=== PATIENT | male | born 1945 | race Caucasian/White ===

== ENCOUNTER 2017-01-10 11:36 | Inpatient (IN) | payer OTHER ==
[2017-01-10] MEDS ORDERED: NITROGLYCERIN SL PRN (11:46)
[2017-01-10] MEDS ORDERED: ASPIRIN PO STA (11:46)
[2017-01-10 12:06] LABS: MANUAL DIFF NEEDED? NO
[2017-01-10 12:22] LABS: BASO% 0.2 % (0.0-0.8); EOS# 0.15 X1000 (0.0-0.7); EOS% 2.3 % (0.0-10.0); HEMATOCRIT 33.9 % (42.0-52.0); HEMOGLOBIN 10.8 g/dL (14.0-18.0); IMM GRAN# 0.02 X1000 (0.0-0.04); IMM GRAN% 0.3 % (0.0-0.5); LYMPH# 0.66 X1000 (1.2-3.4); LYMPH% 10.3 % (20.5-51.1); MCH 31.1 PG (27-31); MCHC 31.9 g/dL (33-37); MCV 97.7 FL (81-99); MONO# 0.89 X1000 (0.11-0.59); MONO% 13.9 % (1.7-9.3); MPV 10.2 FL (7.4-10.4); PLT 122 X1000 (130-400); RBC 3.47 XMIL (4.7-6.1)
[2017-01-10 12:24] LABS: INR 0.99; PROTIME 10.5 Seconds (9.2-11.7); PTT 25.9 Seconds (22.0-36.0)
[2017-01-10 12:37] LABS: ALBUMIN 3.7 g/dL (3.5-5.0); CALCIUM 8.3 mg/dL (8.8-10.2); MAGNESIUM 1.5 mg/dL (1.5-2.7); POTASSIUM 3.3 mmol/L (3.5-5.1); TOTAL BILIRUBIN 0.37 mg/dL (0.20-1.00); TOTAL PROTEIN 6.2 g/dL (6.3-8.3)
--- NOTE | 2017-01-10 12:53 | PROVIDER DOCUMENTATION ---
HPI-Cardiac General <Chance Jaquez - Last Filed: 01/10/17 13:46> - General Source: patient - History of Present Illness-Cardiac Location: reports: other (left side) Quality of Pain: reports: dull Severity in ED: mild Onset/Duration: abrupt, this morning (1030) Timing: still present, improving Context/Activities at Onset: reports: none Modifying Factors: improves with: nothing Palpitation Quality: irregular History of arrythmia: reports: A-Fib Recent use of:: reports: no stimulants Aspirin Treatment Today: reports: 325 mg x 1, provided by ED Prior Chest Pain/Cardiac Workup: reports: cardiac cath (last year at [facility]) Associated Symptoms: denies: back pain, diaphoresis, nausea, shortness of breath , vomiting Similar Symptoms Previously?: Yes Recently Seen Here or By Another Healthcare Provider: No <Zain Gilmore - Last Filed: 01/10/17 13:57> - General Chief Complaint: Palpitations Stated Complaint: PALPITATIONS/NAUSEA Time Seen by Provider: 01/10/17 12:04 Allergies/Adverse Reactions: Patient Allergies Allergy/AdvReac Type Severity Reaction Status Date / Time ciprofloxacin [From Cipro] Allergy SWELLING Verified 01/10/17 13:16 Home Medications: Home Medication List Medication Instructions Recorded Confirmed Last Taken Type Cyanocobalamin/Folic Acid [Vitamin 1 each PO DAILY 05/30/15 09/16/16 09/15/16 History R69-[id number] Acid Tablet] Gabapentin [Neurontin] 100 mg PO QHS 05/30/15 09/16/16 09/15/16 History Pantoprazole [Protonix] 40 mg PO DAILY@0700 05/30/15 09/16/16 09/16/16 History Potassium Chloride 20 meq PO BID 05/30/15 09/16/16 09/15/16 History Prednisone 5 mg PO DAILY 05/30/15 09/16/16 09/16/16 History Sevelamer Carbonate [Renvela] 800 mg PO BID 05/30/15 09/16/16 09/15/16 History Sodium Bicarbonate 1,300 mg PO DAILY 05/30/15 09/16/16 09/15/16 History Tamsulosin HCl [Flomax] 0.4 mg PO QHS 05/30/15 09/16/16 09/15/16 History Cinacalcet HCl [Sensipar] 60 mg PO HS 09/14/16 09/16/16 09/15/16 History Acetaminophen [Tylenol] 650 mg PO Q6H PRN PRN #0 tablet 09/20/16 Unknown Rx Aspirin EC 81 mg PO DAILY #0 tablet 09/20/16 Unknown Rx Carvedilol [Coreg] 12.5 mg PO Q12H #60 tablet 09/20/16 Unknown Rx Clonidine [Catapres] 0.1 mg PO BID #60 tablet 09/20/16 Unknown Rx Hydralazine [Apresoline] 25 mg PO TID #90 tablet 09/20/16 Unknown Rx Isosorbide Dinitrate [Isordil] 10 mg PO TID #90 tablet 09/20/16 Unknown Rx - History of Present Illness-Cardiac Nature of Presenting Problem: patient is a 71 y/o M that presents to the ER with left sided chest pain and palpitations. patient noticed symptoms about 1030 this am after having dialysis. He has history of a-fib in the past. patient was on cardizem in past but was taken off and changed to medications to strengthen heart. he denies having shortness of breath, back pain, or n/v. Dialysis went as normal today ( Zain Gilmore) Review of Systems - Adult - REVIEW OF SYSTEMS - ADULT Constitutional: denies: chills, fever Eyes: denies: decreased vision, blurred vision, double vision Ears, Nose, Mouth & Throat: denies: ear pain, sinus problem, throat pain, throat swelling Cardiovascular: reports: chest pain, palpitations. denies: syncope Respiratory: denies: cough, shortness of breath, wheezing Gastrointestinal: reports: no symptoms reported Genitourinary: reports: no symptoms reported Musculoskeletal: denies: back pain, joint pain, neck pain Integumentary: reports: no symptoms reported Neurological: denies: dizziness/vertigo, headache/migraines Psychiatric: reports: no symptoms reported Endocrine: reports: no symptoms reported Hematologic/Lymphatic: reports: no symptoms reported Allergic/Immunologic: reports: no symptoms reported All Other Systems: Reviewed and Negative <Zain Gilmore - Last Filed: 01/10/17 13:57> Past History - Adult - PAST MEDICAL HISTORY-ADULT Review of Records: reports: Old Records Reviewed, Nursing Assessment Review, Medications Reviewed Cardiovascular: reports: A-Fib, HTN, PVD Genitourinary: reports: dialysis (MWF), ESRD, other - PRIOR SURGERIES/PROCEDURES Surgical/Procedure History: reports: indwelling device (Av fistula) - IMMUNIZATION STATUS Childhood Immunizations: See Nurse Assessment Flu Vaccine: See Nurse Assessment - FAMILY HISTORY Family History: reviewed, not pertinent - SOCIAL HISTORY Smoking: quit greater than 1 year, cigarettes Living Situation: family <Zain Gilmore - Last Filed: 01/10/17 13:57> Physical Exam-General - PHYSICAL EXAM-ADULT Initial Vital Signs Reviewed: Yes - CONSTITUTIONAL General Appearance: alert, no apparent distress - EYES Eyes: PERRL/EOMI, pink conjunctivae - HEAD, EARS, NOSE, MOUTH & THROAT HENMT: normocephalic/atraumatic, moist mucous membranes, normal ENT inspection - NECK Neck: full range of motion, normal inspection - RESPIRATORY Respiratory: lungs clear, normal breath sounds, no respiratory distress, no accessory muscle use - CARDIOVASCULAR Cardiovascular: no JVD, irregularly irregular - GASTROINTESTINAL (ABDOMEN) Abdominal Exam: normal bowel sounds, non tender, soft - MUSCULOSKELETAL Extremity: no pedal edema, no calf tenderness, normal capillary refill, pelvis stable, other (av fistula to left arm( good thrill)) - SKIN Integumentary: normal color, warm/dry - NEUROLOGIC Neurologic: grossly normal, no motor/sensory deficits - PSYCHIATRIC Psych/Mental Status: normal mood/affect, normal thought content, normal thought process, oriented x 3 <Zain Gilmore - Last Filed: 01/10/17 13:57> Progress <Chance Jaquez - Last Filed: 01/10/17 13:46> - XRAY 1 XRAY Study: Chest Impression: Abnormal XRAY Interpretation: Increasing Pleural Effusions - CONSULTS/PCP/HOSPITALIST Notification #1 *Consult/PCP/Hospitalist*: Time Discussed: 13:50 Consult Disposition: Will see in ED, Admit <Zain Gilmore - Last Filed: 01/10/17 13:57> - PLAN OF CARE/RESULTS Progress/Plan/Lab Results: 1345 Pt has remained in no distress but continues in afib with rvr. Case discussed with Dr Ashford who agreed with admission to telemetry. (Chance Jaquez) plan of care- labs, cxr, ekg Vital Signs Temp Pulse Resp BP Pulse Ox 01/10/17 12:40 124 H 15 99/78 96 01/10/17 11:44 98.6 F 81 18 116/64 98 ciprofloxacin [From Cipro] Allergy (Verified 01/10/17 13:16) SWELLING Cyanocobalamin/Folic Acid [Vitamin S15-Wotav Acid Tablet] 1 each PO DAILY Gabapentin [Neurontin] 100 mg PO QHS 05/30/15 Pantoprazole [Protonix] 40 mg PO DAILY@0700 05/30/15 Potassium Chloride 20 meq PO BID 05/30/15 Prednisone 5 mg PO DAILY 05/30/15 Sevelamer Carbonate [Renvela] 800 mg PO BID 05/30/15 Sodium Bicarbonate 1,300 mg PO DAILY 05/30/15 Tamsulosin HCl [Flomax] 0.4 mg PO QHS 05/30/15 Cinacalcet HCl [Sensipar] 60 mg PO HS 09/14/16 Acetaminophen [Tylenol] 650 mg PO Q6H PRN PRN #0 tablet 09/20/16 Aspirin EC 81 mg PO DAILY #0 tablet 09/20/16 Carvedilol [Coreg] 12.5 mg PO Q12H #60 tablet 09/20/16 Clonidine [Catapres] 0.1 mg PO BID #60 tablet 09/20/16 Hydralazine [Apresoline] 25 mg PO TID #90 tablet 09/20/16 Isosorbide Dinitrate [Isordil] 10 mg PO TID #90 tablet 09/20/16 Laboratory 01/10/17 01/10/17 01/10/17 11:53 11:53 11:53 WBC RBC Hgb Hct MCV MCH MCHC RDW Std Deviation Plt Count MPV Immature Gran % (Auto) Neut % (Auto) Lymph % (Auto) Lanier % (Auto) Eos % (Auto) Baso % (Auto) Immature Gran # (Auto) Neut # (Auto) Lymph # (Auto) Lanier # (Auto) Eos # (Auto) Baso # (Auto) PT 10.5 INR 0.99 PTT (Actin FS) 25.9 D-Dimer Sodium Potassium Chloride Carbon Dioxide Anion Gap BUN Creatinine Estimated GFR/1.73 m2 BUN/Creatinine Ratio Glucose Calculated Osmolality Calcium Magnesium Total Bilirubin AST ALT Alkaline Phosphatase Creatine Kinase Troponin T 0.195 H Hbp-D-Wcyrrncektv Pept > 11332 H Total Protein Albumin Globulin Albumin/Globulin Ratio 01/10/17 01/10/17 01/10/17 11:53 11:53 11:53 WBC 6.41 RBC 3.47 L Hgb 10.8 L Hct 33.9 L MCV 97.7 MCH 31.1 H MCHC 31.9 L RDW Std Deviation 15.1 H Plt Count 122 L MPV 10.2 Immature Gran % (Auto) 0.3 Neut % (Auto) 73.0 Lymph % (Auto) 10.3 L Lanier % (Auto) 13.9 H Eos % (Auto) 2.3 Baso % (Auto) 0.2 Immature Gran # (Auto) 0.02 Neut # (Auto) 4.68 Lymph # (Auto) 0.66 L Lanier # (Auto) 0.89 H Eos # (Auto) 0.15 Baso # (Auto) 0.01 PT INR PTT (Actin FS) D-Dimer 2.70 H Sodium 139 Potassium 3.3 L Chloride 95 L Carbon Dioxide 26 Anion Gap 18 BUN 28 H Creatinine 5.3 H Estimated GFR/1.73 m2 11 BUN/Creatinine Ratio 5 Glucose 118 H Calculated Osmolality 284 Calcium 8.3 L Magnesium 1.5 Total Bilirubin 0.37 AST 20 ALT 19 Alkaline Phosphatase 79 Creatine Kinase 44 Troponin T Sms-B-Bfjfsssgyix Pept Total Protein 6.2 L Albumin 3.7 Globulin 2.5 Albumin/Globulin Ratio 1.5 Orders Category Date Time Status Cardiac Monitoring DIRECTED Care 01/10/17 11:46 Active Saline Loc NOW Care 01/10/17 11:46 Active CHEST-2 VIEWS [RAD] Stat Exams 01/10/17 11:46 Completed CBC WITH ELECTRONIC DIFF [HEME] Stat Lab 01/10/17 11:53 Completed CK PROFILE [SP CHEM] Stat Lab 01/10/17 11:53 Completed COMPREHENSIVE METABOLIC PANEL [CHEM] Stat Lab 01/10/17 11:53 Completed D-DIMER [CHEM] Stat Lab 01/10/17 11:53 Completed MAGNESIUM [CHEM] Stat Lab 01/10/17 11:53 Completed PRO B-NATRIURETIC PEPTIDE Stat Lab 01/10/17 11:53 Completed PROTIME WITH INR [COAG] Stat Lab 01/10/17 11:53 Completed PTT [COAG] Stat Lab 01/10/17 11:53 Completed TROPONIN T Stat Lab 01/10/17 11:53 Completed Aspirin Med 01/10/17 11:46 Discontinued 325 mg PO STAT STA Diltiazem [Cardizem] Med 01/10/17 13:35 Discontinued 10 mg IV NOW ONE Nitroglycerin Sl [Nitroglycerin] Med 01/10/17 11:46 Discontinued 0.4 mg SL Q5M PRN PRN EKG [EKG] Stat Ther 01/10/17 11:46 Ordered pt will be admitted to hospitalist service (Zain Gilmore) Departure - Departure Time of Disposition Order: 13:47 Certified Medical Emergency: Emergent <Chance Jaquez - Last Filed: 01/10/17 13:46> - Departure Time of Disposition Order: 13:57 Certified Medical Emergency: Emergent - Critical Care Note Total Time (mins): 35 Critical Care Statement: This patient required my direct personal management to treat or rule out processes, the absence of which, could potentiallly result in sudden, clinically significant life or limb threatening deterioration. <Zain Gilmore - Last Filed: 01/10/17 13:57> - Departure DIAGNOSIS: Atrial fibrillation with rapid ventricular response Chest pain Qualifiers: Chest pain type: unspecified Qualified Code(s): R07.9 - Chest pain, unspecified Chronic renal failure Qualifiers: Chronic kidney disease stage: stage 4 (severe) Qualified Code(s): N18.4 - Chronic kidney disease, stage 4 (severe) Disposition: ADMITTED INPATIENT 09 Condition: Stable Referrals: Steven Avila [Primary Care Provider] - Attestation - Scribe Verification/Attestation Scribe:: Zain Gilmore Acting as Scribe for:: Chance Jaquez Scribe documention review:: This chart was documented by a scribe and accurately reflects the service the provider performed and the decisions made by the provider. <Zain Gilmore - Last Filed: 01/10/17 13:57> Physician Attestation - Physician Attestation I, the provider, attest to the following statement:: Chance Jaquez Physician documentation Attestation:: This documentation recorded by the scribe accurately reflects the service I personally performed and the decisions made by me. <Zain Gilmore - Last Filed: 01/10/17 13:57>
--- NOTE | 2017-01-10 13:01 | Diag Imaging Result Document ---
PROCEDURE NAME: CHEST-2 VIEWS - 01/10/2017 TWO VIEWS OF THE CHEST: FINDINGS: There is a left pleural effusion. There is a smaller effusion on the right. Compared to 11/14/2016, the volume of fluid on the left may be slightly greater but the right pleural effusion was not present previously. Otherwise, there has been no appreciable change. IMPRESSION: Increasing pleural effusions.
[2017-01-10] MEDS ORDERED: CARDIZEM IV ONE (13:35)
[2017-01-10] MEDS: CARDIZEM 100 MG/NS 100 ML IV SCH (15:00)
--- NOTE | 2017-01-10 15:46 | HISTORY AND PHYSICAL ---
PRIMARY CARE PROVIDER: Steven Avila MD. CHIEF COMPLAINT: Palpitations, left chest pain with nausea. HISTORY OF PRESENT ILLNESS: Mr. Byrne is a 71-year-old male with a past medical history of end-stage renal disease receiving dialysis Sunday, Sunday, Sunday, persistent pleural effusions, parathyroid disease, who apparently had a history of atrial fibrillation in 2007 that required cardioversion, now presents with complaints of palpitation, nausea, and left chest pain. Apparently he received hemodialysis and after hemodialysis, around 10:30 he started feeling palpitations, he was nauseated, and had left chest pain that radiated to the left shoulder, but denies any shortness of breath or diaphoresis or any other complaints. He denies any other symptoms such as fever, chills, vomiting, diarrhea, or constipation. Denies any other pains or complaints. Upon arrival to the ER his EKG revealed that he was in atrial fibrillation with RVR. He has received hemodialysis and his potassium level is 3.3. Magnesium is 1.5. In looking at his cardiac enzymes, CK is normal. Troponin is elevated at 0.195 but looking at past records since September of 2016 he has had elevations in his troponin. Even prior to that, it looks like in May 2015 he had elevations in his troponin. No obvious ST elevations on EKG, just atrial fibrillation with RVR. Currently at the bedside, looking at the heart monitor he ranges anywhere from low 100s up to 130s. He did receive a 1 time dose of IV Cardizem 10 mg x1 in the ER. We will start him on a Cardizem drip, hold his blood pressure medications for now as he has a systolic in the 90s to low 100s, and consult cardiology, Dr. Garcia. He has seen Dr. Green in the past. PAST MEDICAL HISTORY: 1. Bronchitis. 2. Pneumonia. He said his last round of pneumonia was last year. 3. CKD, end-stage renal disease with hemodialysis Sunday, Sunday, Sunday. Followed by Dr. Garcia. 4. Chronic thrombocytopenia. 5. Paroxysmal atrial fibrillation with last being in 2007 that required cardioversion at [facility]. 6. Crohn disease. The last flare was in 1981. 7. Hypertension. 8. Kidney stones and gallstones. 9. Restless legs syndrome. 10. Peripheral vascular disease. 11. Right inguinal hernia. 12. Parathyroid disease. 13. Congestive heart failure with last echocardiogram being September 17, 2016 which showed an EF of 25 to 30% and global hypokinesis. 14. Advanced degree of diastolic heart dysfunction. 15. Pulmonary artery hypertension with the last recording of being 60 mmHg. PAST SURGICAL HISTORY: 1. Right femoral artery repair in 1967. 2. Right foot DVT several years ago. 3. Rectal sweat gland removed. 4. Left upper arm AV fistula. 5. Two colon resections secondary to Crohn. 6. Bilateral cataract surgery. 7. Skin cancer removed from left forearm and neck. 8. Cardioversion in 2007 at [facility]. SOCIAL HISTORY: Quit smoking 39 years ago. Denies alcohol or illicit drug use. He is and lives in [place] with his . 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 FAMILY HISTORY: His father is positive for colon cancer. Brother had diabetes and hypertension. ALLERGIES: All fluoroquinolones and adhesive tape. HOME MEDICATIONS: Sensipar 60 mg p.o. nightly, clonidine 0.1 mg p.o. twice a day, vitamin B12, folic acid tablet 1 tablet p.o. daily, Neurontin 100 mg p.o. nightly, potassium chloride 20 mEq p.o. twice daily, prednisone 5 mg p.o. daily, Protonix 40 mg p.o. daily, Renvela 800 mg p.o. twice daily, sodium bicarbonate 1300 mg p.o. daily, Flomax 0.4 mg p.o. nightly, Tylenol p.r.n., hydralazine 25 mg p.o. t.i.d., enteric-coated aspirin 81 mg p.o. daily, clonidine 0.1 mg p.o. twice daily, Coreg 12.5 mg p.o. every 12 hours, isosorbide dinitrate 10 mg p.o. t.i.d. REVIEW OF SYSTEMS: Fourteen point review of systems were complete and all were negative except for those mentioned in the above HPI. LABORATORY DATA: White blood cells 6,000, hemoglobin 10, hematocrit 33, platelet count 122,000. INR 0.99, PTT is 25.9. D-dimer 2.70. Sodium 139, potassium 3.3, BUN 28, creatinine 5.3, glucose 118, calcium 8.3, magnesium 1.5, total bilirubin 0.37, AST 20, ALT 19, CK 44. Troponin 0.195. ProBNP 35,000. Total protein 6.2. IMAGING: Chest x-ray: Bilateral pleural effusions that have increased in size since last image, left is greater than right. PHYSICAL EXAMINATION: VITAL SIGNS: Temperature is 98.6 degrees, heart rate 124, respiratory rate 15, blood pressure 99/78, O2 saturation 96% on room air, 6 feet 2 inches tall, 158 pounds. GENERAL: Mr. Byrne is a 71-year-old male. He is in no acute distress. He is able to answer all questions appropriately. HEENT: Atraumatic, normocephalic. Pupils equal, round, reactive to light. Extraocular movements intact. NECK: No JVD or carotid bruits. CARDIOVASCULAR: Irregularly irregular, tachycardic rate and rhythm. No rubs, gallops murmurs. PULMONARY: Clear to auscultation. Bilateral breath sounds. Decreased in the bases. No accessory muscle use or work of breathing noted. GI: Soft, nontender, nondistended. Positive bowel sounds x4. EXTREMITIES: There is +1 edema in the right lower extremity. Trace edema in the left lower extremity. There is a +2 dorsalis pedal pulse in the left lower extremity. Trace pedal pulse in the right lower extremity. Bilateral radials +2. NEUROLOGIC: A O x4. Moves all extremities equally. SKIN: Warm, dry, intact. ASSESSMENT AND PLAN: 1. Paroxysmal atrial fibrillation, now atrial fibrillation with rapid ventricular response. Last had a cardioversion in 2007 at [facility]. Magnesium is 1.5 potassium 3.3/ will attempt to keep electrolytes stable given his end-stage renal disease. Will consult cardiology and start him on a Cardizem drip and frequent vital signs. We will send to [facility]. 2. Congestive heart failure systolic with diastolic dysfunction and pulmonary artery hypertension. Last echocardiogram was in September of 2016. His ejection fraction is 25 to 30%, pulmonary pressure is 60 mmHg. He did receive dialysis today but is proBNP chronically stays elevated greater than 35,000. Again, cardiology will be following. Holding off on his Coreg and will allow Dr. Garcia make that decision as blood pressure is somewhat soft and upper 90s currently systolically. 3. End-stage renal disease. Received dialysis today. Gets dialysis Sunday, Sunday, Sunday. We will reconsult Dr. Garcia. 4. Chronic thrombocytopenia. 5. Crohn disease. Last flare was in 1981. 6. Hypertension. Hold medications for now. 7. Peripheral vascular disease. 8. Parathyroid disease. 9. Deep venous thrombosis prophylaxis. Heparin q.12 hours. 10. Gastrointestinal prophylaxis. Proton pump inhibitor. Dictated by MELVA Kay for Marcus Ashford MD Addendum: I personally evaluated and examined the patient in conjunction to the [employer] and agreed with her assessments and plans. He is having IRR on examined but no chest pain. MTDD
[2017-01-10] MEDS ORDERED: ZOFRAN IV PRN (16:38)
[2017-01-10] MEDS ORDERED: TYLENOL PO PRN (16:38)
[2017-01-10] MEDS ORDERED: MISC. PHARMACY COMMUNICATION SCH (16:45)
[2017-01-10] MEDS ORDERED: FLUZONE QUAD 2016-2017 SYRINGE IM ONE (17:03)
[2017-01-10] MEDS: LANOXIN IV SCH ×2 (17:36→22:55)
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
[2017-01-10] MEDS: HEPARIN SUBQ SCH (20:31)
[2017-01-10] MEDS: KLOR-CON PO SCH (20:31)
[2017-01-10] MEDS: NEURONTIN PO SCH (20:31)
[2017-01-10] MEDS: FLOMAX PO SCH (20:31)
[2017-01-10] MEDS: RENAGEL PO SCH (20:58)
[2017-01-10] MEDS: SENSIPAR PO SCH (20:58)
[2017-01-11 05:26] LABS: MANUAL DIFF NEEDED? NO
[2017-01-11 05:31] LABS: BASO% 0.2 % (0.0-0.8); EOS# 0.13 X1000 (0.0-0.7); EOS% 2.8 % (0.0-10.0); HEMATOCRIT 30.3 % (42.0-52.0); HEMOGLOBIN 9.7 g/dL (14.0-18.0); LYMPH# 0.66 X1000 (1.2-3.4); MCH 31.6 PG (27-31); MCV 98.7 FL (81-99); MONO# 0.67 X1000 (0.11-0.59); MONO% 14.2 % (1.7-9.3); NEUT% 68.8 % (42.2-75.2); PLT 89 X1000 (130-400); RBC 3.07 XMIL (4.7-6.1)
[2017-01-11 05:35] LABS: INR 1.03; PROTIME 10.9 Seconds (9.2-11.7); PTT 27.3 Seconds (22.0-36.0)
--- NOTE | 2017-01-11 05:51 | EKG Report ---
Test Performed on : 01/10/2017 11:47:38 AM Test Reason : Elevated Troponin Blood Pressure : / mmHG Vent. Rate : 130 BPM Atrial Rate : 129 BPM P-R Int : 000 ms QRS Dur : 114 ms QT Int : 292 ms P-R-T Axes : 000 -13 143 degrees QTc Int : 429 ms Atrial fibrillation. with rapid ventricular response. Moderate voltage criteria for LVH, may be normal variant ST & T wave abnormality, consider lateral ischemia Abnormal ECG When compared with ECG of 16-SEP-2016 20:13, Atrial fibrillation. has replaced Sinus rhythm. ST now depressed in Lateral leads Unconfirmed Result
[2017-01-11] MEDS: PROTONIX PO SCH (06:08)
[2017-01-11] MEDS: LANOXIN IV SCH ×2 (06:09→11:27)
[2017-01-11 06:16] LABS: FREE T4 1.26 ng/dL (0.93-1.70)
[2017-01-11] MEDS: CARDIZEM 100 MG/NS 100 ML IV SCH (06:17)
[2017-01-11 06:18] LABS: ALBUMIN 3.1 g/dL (3.5-5.0); CALCIUM 8.2 mg/dL (8.8-10.2); MAGNESIUM 1.6 mg/dL (1.5-2.7); POTASSIUM 4.6 mmol/L (3.5-5.1); TOTAL BILIRUBIN 0.32 mg/dL (0.20-1.00); TOTAL PROTEIN 5.8 g/dL (6.3-8.3)
--- NOTE | 2017-01-11 08:10 | PROGRESS NOTE ---
DATE: 01/11/2017 CHIEF COMPLAINT: Palpitations, irregular heartbeat. SUBJECTIVE: Mr. Byrne is feeling better today. His heart rate is still well controlled with present doses of Cardizem and digoxin. He is still in atrial fibrillation. OBJECTIVE: Vital signs: Blood pressure is 146/69, temperature 97.6, pulse 86, respirations 18. He is awake, alert, oriented, in no distress. HEENT: Unremarkable. Chest: Diminished breath sounds at the bases. Cardiac: Heart sounds are irregularly irregular. No gallop or murmur. Abdomen: Nontender, soft, no masses, no hepatomegaly. Extremities: Show no edema. Pulses diminished in the right leg. Neurologic: He moves 4 extremities. DIAGNOSTIC DATA: Blood work: Sodium 133, potassium 4.6, BUN 45, creatinine 7.2. They have been checking troponin levels. There is no reason to do that. The patient has no coronary heart disease. Cardiac catheterization performed recently. His troponin is mildly elevated, probably related to his congestive heart failure. IMPRESSION: 1. The patient presented with atrial fibrillation, rapid response, unprovoked. 2. End-stage renal, on hemodialysis. 3. Chronic systolic heart failure, nonischemic dilated cardiomyopathy. He had a normal coronary arteriography recently. RECOMMENDATIONS: We will up titrate his vasodilators. We will continue diltiazem and digoxin. If he does not convert, we will consider pursuing conversion; however, I want to get a CT scan of the chest to see if he has significant pleural effusions because, if he does, we may want to evacuate those effusions before proceeding with cardioversion. We will check inflammatory markers. Further evaluation will be forthcoming.
--- NOTE | 2017-01-11 09:30 | Diag Imaging Result Document ---
PROCEDURE NAME: CT THORAX W/O CONTRAST - 01/11/2017 CT OF THE CHEST WITHOUT CONTRAST: FINDINGS: There is some patchy edema and/or atelectasis present in both lungs, particularly the right upper lobe and right lower lobe. There is considerable compressive atelectasis of the left lower lobe. There are bilateral pleural effusions, larger on the left than the right. There is a 14 mm right paratracheal node. This has not changed since 09/16/2016. There are calcified hilar nodes bilaterally. There is apparent bilateral nephrolithiasis and polycystic kidneys. There are densely calcified gallstones. Compared to the previous study of 09/16/2016 there has been very little change with only slight increase in the volume of the pleural fluid collections. The regional skeleton is stable in appearance. IMPRESSION: Bilateral pleural effusions with compressive atelectasis not significantly changed since 09/16/2016.
[2017-01-11] MEDS: HEPARIN SUBQ SCH (09:49)
[2017-01-11] MEDS: PREDNISONE PO SCH (09:51)
[2017-01-11] MEDS: FOLTX PO SCH (09:51)
[2017-01-11] MEDS: SODIUM BICARBONATE PO SCH (09:51)
[2017-01-11] MEDS: KLOR-CON PO SCH ×2 (09:51→20:43)
[2017-01-11] MEDS: RENAGEL PO SCH ×2 (09:51→20:43)
[2017-01-11] MEDS: APRESOLINE PO SCH ×3 (09:52→20:43)
[2017-01-11] MEDS: ISORDIL PO SCH ×3 (09:52→20:43)
[2017-01-11] MEDS: ASPIRIN EC PO SCH (09:52)
--- NOTE | 2017-01-11 11:15 | PROGRESS NOTE ---
DATE: 01/11/2017 SUBJECTIVE: The patient is feeling well and has no complaint. No palpitation or chest pain. Vital signs: Blood pressure 162/70, pulse of 79, respirations 17, temperature 97.7 degrees, saturation of 99% on room air. General appearance: Thin, white male, in no acute distress. HEENT: Anicteric. Clear conjunctivae. Neck: Supple. No JVD. No bruit. Cardiovascular: S1 and S2. Irregular rate and rhythm. No murmur, rubs, or gallops. Pulmonary: Clear to auscultation bilaterally. GI: Soft, nontender, nondistended. Normoactive bowel sounds. Musculoskeletal: No clubbing, cyanosis, or edema. LABORATORY: White count 4.71, hemoglobin 9.7, hematocrit of 30.3, platelets 89,000. Chemistry: Sodium 132, potassium 4.6, chloride 92, bicarb 23, BUN 45 creatinine 7.2, glucose of 72. Troponins elevated at 0.439. ASSESSMENT AND PLAN: This is a 71-year-old white male, admitted to the hospital for atrial fibrillation with RVR. 1. Atrial fibrillation with rapid ventricular response. Rate is much better controlled. The patient had been on decided diltiazem drip and Cardiology started him on digoxin IV q.6. His rate seems much better controlled. Will transition him to oral Cardizem today. Cardiology was consulted. Cardiology is planning to do the cardioversion if medical treatment will not keep his rate under control. 2. Troponin elevation, probably secondary to tachycardia from atrial fibrillation with rapid ventricular response. The patient does not have any chest pain. Will continue to monitor the patient for now. Cardiology is following. 3. End-stage renal disease. The patient on dialysis of Sunday, Sunday, and Sunday. 4. Thrombocytopenia. Probably we will hold his heparin for now. 5. Hypertension. The patient is on isosorbide along with diltiazem and scheduled hydralazine 3 times a day. We will continue to titrate blood pressure medication to get blood pressure under control. 6. Code status. Patient is a full code. 7. SCDs for DVT prophylaxis.
[2017-01-11] MEDS: CARDIZEM PO SCH ×2 (13:03→16:50)
--- NOTE | 2017-01-11 16:09 | CONSULTATION ---
DATE OF CONSULTATION: 01/11/2017 REASON FOR ADMISSION: Atrial fibrillation with RVR. REASON FOR CONSULTATION: End-stage renal disease. CONSULTING PHYSICIAN: Dr. Lew. HISTORY OF PRESENT ILLNESS: This is a 71-year-old gentleman well known to our service for end- stage renal disease on hemodialysis on a Sunday, Sunday, Sunday schedule. He did present to his dialysis yesterday as per routine. He states that at the end of treatment his heart rate was noted to be elevated. He was having no symptoms and vital signs were stable and so he went home after dialysis. He states that over the course of the day he began to have abdominal pain and then pain to the left shoulder along with heart palpitations and some mild chest pain. He came into the emergency room secondary to these symptoms and was found to be in atrial fibrillation with RVR. Heart rate was in the 120s. Other labs were acceptable. There was no obvious ST elevation on EKG. He was started on a Cardizem drip and admitted to the hospital for further workup and treatment. He said that today his Cardizem has been held. He was swapped over to p.o. Cardizem and his heart rate has remained stable in the mid 80s. He was followed by Cardiology while he has been in the hospital, who are considering cardioversion if his rate cannot be controlled medically. He denies any current chest pain or shortness of breath. He denies any current abdominal pain or shoulder pain. He has had no nausea or vomiting. PAST MEDICAL HISTORY: 1. End-stage renal disease on hemodialysis Sunday, Sunday, Sunday at the [facility]. 2. Recent history of pneumonia and bronchitis. 3. Chronic thrombocytopenia. 4. Atrial fibrillation. 5. Hypertension. 6. Peripheral vascular disease. 7. Right inguinal hernia. 8. Hyperparathyroidism. 9. CHF with an ejection fraction 25%-30%. 10. Diastolic heart dysfunction. 11. Pulmonary artery hypertension. 12. Restless legs syndrome. 13. History of kidney stones. 14. History of Crohn's. SURGICAL HISTORY: He has an AV fistula left upper extremity. He has had femoral artery repair, and a right foot DVT. He has colon resection secondary to his Crohn's, skin cancer removal, and a cardioversion in 2007 at [facility]. ALLERGIES: Fluoroquinolones and adhesive tape. HOME MEDICATIONS: Listed as Sensipar, clonidine, vitamin B12, folic acid, Neurontin, potassium chloride, prednisone, Protonix, Renvela, sodium bicarbonate, Flomax, Tylenol, hydralazine, aspirin, clonidine, Coreg, and isosorbide. FAMILY HISTORY: Colon cancer, diabetes, and hypertension. SOCIAL HISTORY: Quit smoking many years ago. No ETOH or illicit drug use. He is and is still active. REVIEW OF SYSTEMS: Pertinent positives noted above in the HPI. Review of systems x10. PHYSICAL EXAMINATION: Vital Signs: Temperature 97.8 degrees, pulse 90, he is in the mid 80s on his potline monitor, respiratory rate 15, blood pressure 148/76. Intake 1 L, output 500 mL. General: This is an elderly, gentleman sitting up in bed. He is awake and alert. He is oriented x4 and able to give an appropriate history. HEENT: Normocephalic and atraumatic. His oral mucosa is moist. MERVIN, EOMI. Conjunctivae pink. Neck: Supple. There is no JVD. Cardiovascular: Irregularly irregular rhythm. Controlled rate. No murmur appreciated. Pulmonary: He has equal excursion and is clear bilaterally. He has no increased work of breathing. Abdomen: Soft, with positive bowel sounds. Nontender. : Not inspected. He has minimal void with hemodialysis assist. Extremities: Trace pretibial edema. No clubbing or cyanosis. AV fistula left upper extremity positive thrill. Integumentary: Skin is warm and dry otherwise. Neuro: Grossly nonfocal. LAB DATA: WBC of 4.7, hemoglobin 9.7, hematocrit 30.3, and platelet count of 89 ,000. Sodium 133, potassium 4.6, CO2 23, BUN 45, creatinine 7.2, calcium 8.2, and albumin 3.1. ASSESSMENT AND PLAN: 1. End-stage renal disease on hemodialysis. He routinely dialyzes on Sunday, Sunday, Sunday schedule. He had his full treatment yesterday. We will plan to dialyze him on Sunday. 2. Atrial fibrillation with RVR. Followed by primary and Cardiology. His rate is currently controlled. 3. History of congestive heart failure and diastolic dysfunction. We will continue to dialyze to dry weight, his ultrafiltration removal to dry weight on dialysis. 4. Hypertension. Controlled. 5. Electrolytes, acid-base balance. These are in target. 6. Anemia is stable. Seen, data reviewed, discussed with Sera Saavedra on 01/11/17. I agree with the above assessment and plan of care. rg Dictated by MELVA Hernandez for Adria Garcia MD MTDD
--- NOTE | 2017-01-11 18:17 | ECHO REPORT ---
ORDER DATE: 01/11/2017 INTERPRETING PHYSICIAN: Dr. Garcia REQUESTING PHYSICIAN: CLINICAL INDICATIONS: A 71-year-old male with CHF, atrial fibrillation, rapid response. M-MODE MEASUREMENTS: Right ventricle: 4.2 cm. Left ventricle end diastole: 6.2 cm. Left ventricle end systole: 4.5 cm. Posterior wall: 1.1 cm. Interventricular septum: 1.1 cm. Left atrium: 4.6 cm. Aortic root: 3.4 cm. SUMMARY OF 2-DIMENSIONAL IMAGING: The left ventricular systolic function appears to be mild to moderately impaired. Global ejection fraction appears to be in the order of 40-45%. The impairment is global. The patient is in atrial fibrillation. There is a small amount of pericardial effusion. There is a moderate sized left pleural effusion with either collapsed lung or masses noted in the pleural space adjacent to the pericardium. The mitral valve shows calcification of the annulus with a mild to moderate degree of regurgitation. Pulse wave Doppler of mitral inflow shows the presence of single filling wave due to the atrial fibrillation. The aortic valve shows sclerosis of the cusp. There is no definite stenosis. Peak gradient is 16 mmHg. Mean gradient is 8 mmHg. The tricuspid valve shows a moderate degree of right. The inferior vena cava is dilated. The pulmonary systolic pressure is estimated at 58 mmHg. The pulmonic valve looks normal. Color flow mapping indicates a mild degree of regurgitation. Both atria are moderately dilated. IMPRESSION: In summary, this study shows: 1. Moderate to significant enlargement of the left ventricle with mild to moderate impaired systolic function. Ejection fraction estimated at 40-45%. 2. Calcification of mitral annulus with mild to moderate degree of regurgitation. 3. Moderate degree of tricuspid regurgitation with a pulmonary systolic pressure of 58 mmHg. 4. Sclerosis of the aortic valve without stenosis. 5. Evidence of pleural effusion with either fibrin deposits/atelectasis of the lung or pleural mass. Correlation should be made with CT scan of the chest.
[2017-01-11] MEDS: FLOMAX PO SCH (20:43)
[2017-01-11] MEDS: NEURONTIN PO SCH (20:43)
[2017-01-11] MEDS: SENSIPAR PO SCH (21:17)
[2017-01-12 05:32] LABS: MANUAL DIFF NEEDED? NO
[2017-01-12 06:05] LABS: POTASSIUM 5.4 mmol/L (3.5-5.1)
[2017-01-12] MEDS: PROTONIX PO SCH (06:05)
[2017-01-12 06:51] LABS: BASO% 0.2 % (0.0-0.8); EOS# 0.12 X1000 (0.0-0.7); EOS% 2.8 % (0.0-10.0); HEMATOCRIT 30.4 % (42.0-52.0); HEMOGLOBIN 9.9 g/dL (14.0-18.0); LYMPH# 0.44 X1000 (1.2-3.4); LYMPH% 10.2 % (20.5-51.1); MCH 31.4 PG (27-31); MCHC 32.6 g/dL (33-37); MCV 96.5 FL (81-99); MONO# 0.65 X1000 (0.11-0.59); MONO% 15.1 % (1.7-9.3); MPV 10.4 FL (7.4-10.4); NEUT% 71.7 % (42.2-75.2); PLT 96 X1000 (130-400); RBC 3.15 XMIL (4.7-6.1)
[2017-01-12] MEDS ORDERED: HEPARIN IV PRN (07:00)
[2017-01-12] MEDS ORDERED: TIGHT: 0.2 ML/HR MISC PRN (07:00)
[2017-01-12] MEDS ORDERED: NS 2,000 ML MISC PRN (07:00)
--- NOTE | 2017-01-12 08:35 | PROGRESS NOTE ---
DATE: 01/12/2017 CHIEF COMPLAINT: Shortness of breath, irregular heartbeat. SUBJECTIVE: Mr. Byrne feels better today. He has converted to sinus rhythm early this morning. He denies having any chest pain, although his breathing is not normal. OBJECTIVE: Vital signs: Blood pressure is 180/84, temperature is 97.8, pulse 87, respirations 18. General: He is awake, alert, oriented, in no distress. HEENT: Unremarkable. Chest: Diminished breath sounds especially over the left lung, dullness to percussion in the left lung. Cardiac: Heart sounds are regular and rhythmic, no gallop or murmur is noted. Abdomen: Nontender. Extremities: No edema. BLOOD WORK: Sodium 136, potassium 5.4, BUN 62, creatinine 8.9. Hemoglobin is 9.9, white count 4300. IMPRESSION: 1. Patient who had paroxysmal atrial fibrillation. He has converted to sinus rhythm. 2. CT scan of the chest done yesterday shows large left pleural effusion with compressive atelectasis. 3. Patient had nonischemic cardiomyopathy. The echocardiogram that I had reviewed yesterday indicates that his ejection fraction has improved to the range of 40% to 45%. The chamber is moderately to significantly enlarged. There is a moderate degree of mitral regurgitation. RECOMMENDATION: At this point in time, I would suggest to uptitrate his vasodilators because he is still significantly hypertensive. I would go ahead and consider a consultation with Dr. Gary regarding the need for proceeding with repeat thoracentesis and possibly consultation with thoracic surgeon for management of recurrent pleural effusion which is probably interfering with his normal hemodynamics and contributing to the atrial fibrillation. His cardiomyopathy seems to be better. We will see how he does with up titration of the vasodilators. Due to the tendency to hyperkalemia, probably CLINT inhibitors would not be a good option. Further advice will be forthcoming.
[2017-01-12] MEDS ORDERED: CARDIZEM CD PO ONE (09:02)
[2017-01-12] MEDS ORDERED: EPOGEN SUBQ SCH (09:15)
[2017-01-12] MEDS ORDERED: NS 2,000 ML ONE (09:21)
--- NOTE | 2017-01-12 09:39 | PROGRESS NOTE ---
DATE: 01/12/2017 SUBJECTIVE: He is eating his breakfast and feels well this morning. No change in his shortness of breath. OBJECTIVE: Vital Signs: Blood pressure 180/84, heart rate 87, respiration 18, afebrile. General: On physical exam, a chronically ill man in no distress. Skin: Warm and dry. Eyes: Conjunctivae are pink. Pupils are equal. Neck: Neck veins are not distended. Heart: Heart is in regular rhythm today. No gallops. Positive murmur. Lungs: Have equal breath sounds. No crackles. Abdomen: Soft and nontender. Bowel sounds are present. Extremities: No edema, clubbing, or cyanosis. LABORATORY DATA: Sodium 136, potassium 5.4, chloride 95, bicarbonate 22, BUN 62, creatinine 8.9, hemoglobin 9.9. IMPRESSION: 1. End-stage kidney disease. He will have his routine hemodialysis today to address his uremia and electrolytes. 2. Anemia. We will continue to dose with erythropoietin. 3. Atrial fibrillation. He appears to be in sinus rhythm this morning.
--- NOTE | 2017-01-12 13:53 | CONSULTATION ---
DATE OF CONSULTATION: 01/12/2017 REQUESTING PHYSICIAN: Dr. Lew. REASON FOR CONSULTATION: Pleural effusion. HISTORY OF PRESENT ILLNESS: Mr. Byrne is a 71-year-old white male with end-stage renal disease on hemodialysis, Crohn's disease, with prior bowel resection and chronic diarrhea, cardiomyopathy, pulmonary hypertension, who was evaluated by this practitioner in September with pleural effusion. A thoracentesis was performed which revealed a transudative pleural effusion and cytology was negative. The patient has subsequently followed up in my office. The patient will not follow a fluid restriction. He will not weigh himself on a daily basis. Patient frequently comes in to the dialysis center greater than 4 kg overweight. The patient recently underwent dialysis and then presented to the emergency room with left shoulder pain along with atrial fibrillation and rapid ventricular response. The patient reports his breathing is at baseline. He has not had any fevers, chills, cough or sputum production. CT scan of the thorax was performed, which revealed stable bilateral pleural effusions. PAST MEDICAL HISTORY/PROBLEM LIST: 1. End-stage renal disease with noncompliance of fluid restriction. 2. Crohn's disease with bowel resection and chronic diarrhea. 3. Nephrolithiasis. 4. Restless leg syndrome. 5. Thrombocytopenia. 6. History of deep vein thrombosis of the right leg. 7. Status post IVC filter placement. 8. Recurrent atrial fibrillation. 9. Cardiomyopathy. SOCIAL HISTORY: Patient is a 10 pack year history for tobacco. FAMILY HISTORY: Noncontributory to current presentation. PHYSICAL EXAMINATION: General: Reveals a chronically ill-appearing, white male, resting comfortably, on dialysis. Blood pressure 180/84, heart rate 87, respiration rate 16, oxygen saturation 97% on room air. HEENT: Pupils are equal and reactive. Oropharynx is clear. Neck: Supple. Chest: Reveals diminished breath sounds in both lung bases. Cardiac Exam: Increased rate. Normal S1, normal S2. Abdomen: Soft without hepatosplenomegaly. Extremities: Without edema. LABORATORIES: CT scan as per HPI. IMPRESSION: 71-year-old with end-stage renal disease, cardiomyopathy, pulmonary hypertension, and stable bilateral pleural effusions. Radiographically the patient has had improvement in his effusions when he has elected to monitor his weights. Currently he appears to be at his baseline from his last clinic visit now that he has converted back to sinus rhythm. RECOMMENDATIONS: 1. Continue observation of pleural effusions at this juncture. 2. Recommend fluid restriction which patient has been reluctant to follow the past. 3. Follow up in my clinic in 2-3 weeks.
--- NOTE | 2017-01-12 14:00 | PROGRESS NOTE ---
DATE: 01/12/2017 SUBJECTIVE: The patient is feeling better today. He denies having any fever or chills. Denies having any nausea, vomiting, or diarrhea. Denies having any palpitation or shortness of breath. OBJECTIVE: Vital signs: Blood pressure 180/84, pulse of 87, respiration 18, temperature 97.8 degrees, sat of 99% on room air. General Appearance: Thin, white male, in no acute distress. HEENT: Anicteric. Clear conjunctivae. Neck: Supple. No JVD. No bruit. Cardiovascular: Irregular rate and rhythm. No murmur, rubs, or gallops. Pulmonary: Crackle at the bases. GI: Soft, nontender, nondistended. Normoactive bowel sounds. Musculoskeletal: No clubbing, cyanosis, or edema. LABORATORY: White count 4.3, hemoglobin 9.9, hematocrit of 30.4, platelets of 96,000. Chemistry: Sodium of 136, potassium 5.4, chloride 95, bicarb 22, BUN 62. Creatinine 8.9, glucose is 95. ASSESSMENT AND PLAN: This is a 71-year-old admitted to the hospital for atrial fibrillation with rapid ventricular response. 1. Atrial fibrillation with rapid ventricular response. The patient seemed to be doing well with diltiazem. We increased him to 240 mg daily. Since his blood pressure is still elevated, still in the 90s, we will continue to titrate up to get his rate under control. 2. Hypertension. Blood pressure is not optimally controlled. Hydralazine was increased again today. Will hope that will get his blood pressure in a manageable level. We will follow after the dialysis today. 3. Troponin elevation probably secondary to tachycardia due to atrial fibrillation with rapid ventricular response. No chest pain. Will monitor. Cardiology is following. 4. Thrombocytopenia. We will hold his heparin for now. 5. Code Status: The patient is a full code. 6. Deep vein thrombosis prophylaxis. SCD.
[2017-01-12] MEDS: RENAGEL PO SCH ×2 (15:33→20:58)
[2017-01-12] MEDS: SODIUM BICARBONATE PO SCH (15:34)
[2017-01-12] MEDS: ISORDIL PO SCH ×3 (15:34→18:13)
[2017-01-12] MEDS: PREDNISONE PO SCH (15:34)
[2017-01-12] MEDS: ASPIRIN EC PO SCH (15:34)
[2017-01-12] MEDS: APRESOLINE PO SCH ×3 (15:34→18:13)
[2017-01-12] MEDS: KLOR-CON PO SCH ×2 (15:34→20:58)
[2017-01-12] MEDS: FOLTX PO SCH (15:35)
[2017-01-12] MEDS: SENSIPAR PO SCH (20:58)
[2017-01-12] MEDS: NEURONTIN PO SCH (20:58)
[2017-01-12] MEDS: FLOMAX PO SCH (20:58)
[2017-01-13 05:15] LABS: MANUAL DIFF NEEDED? NO
[2017-01-13 05:21] LABS: BASO% 0.2 % (0.0-0.8); EOS# 0.07 X1000 (0.0-0.7); EOS% 1.7 % (0.0-10.0); HEMOGLOBIN 9.6 g/dL (14.0-18.0); LYMPH# 0.39 X1000 (1.2-3.4); LYMPH% 9.6 % (20.5-51.1); MCH 31.4 PG (27-31); MONO# 0.46 X1000 (0.11-0.59); MONO% 11.3 % (1.7-9.3); NEUT% 77.2 % (42.2-75.2); PLT 109 X1000 (130-400); RBC 3.06 XMIL (4.7-6.1)
[2017-01-13 05:38] LABS: CALCIUM 7.4 mg/dL (8.8-10.2); POTASSIUM 5.6 mmol/L (3.5-5.1)
[2017-01-13] MEDS: PROTONIX PO SCH (06:27)
[2017-01-13] MEDS ORDERED: CARDIZEM CD PO SCH (09:00)
[2017-01-13] MEDS ORDERED: NORVASC PO ONE (09:37)
[2017-01-13] MEDS ORDERED: APRESOLINE PO SCH ×2 (09:37→10:30)
[2017-01-13] MEDS: ISORDIL PO SCH (09:39)
[2017-01-13] MEDS: PREDNISONE PO SCH (09:40)
[2017-01-13] MEDS: ASPIRIN EC PO SCH (09:40)
[2017-01-13] MEDS: SODIUM BICARBONATE PO SCH (09:40)
[2017-01-13] MEDS: RENAGEL PO SCH (09:40)
[2017-01-13] MEDS: FOLTX PO SCH (09:40)
[2017-01-13] MEDS: KLOR-CON PO SCH (09:40)
--- NOTE | 2017-01-13 11:42 | PROGRESS NOTE ---
DATE: 01/13/2017 SUBJECTIVE: The patient is feeling well today. He has no complaint. Vital signs: Blood pressure is 180/84, pulse of 78, respiration 18, temperature 97.7 degrees, saturation of 99% on room air. General Appearance: Thin white male, in no acute distress. HEENT: Anicteric. Clear conjunctivae. Neck: Supple. No JVD. No bruits. Cardiovascular: Normal rate and rhythm. No murmur, rubs, or gallops. Pulmonary: Clear to auscultation bilaterally. Just mild crackle at the bases. GI: Soft, nontender, nondistended. Normoactive bowel sounds. Musculoskeletal: No clubbing, cyanosis, or edema. LABORATORY: White count of 4.06, hemoglobin 9.6, hematocrit of 30.0, platelets 109,000. Chemistry: Sodium 139, potassium of 5.6, chloride 100, bicarb 24, BUN 41, creatinine 7.1, glucose of 83. ASSESSMENT AND PLAN: This is a 71-year-old white male, admitted to the hospital for atrial fibrillation with rapid ventricular response. 1. Atrial fibrillation with rapid ventricular response. Rate is well controlled. The patient is on diltiazem 240 p.o. daily. 2. Hypertension. The patient has been on isosorbide dinitrate and hydralazine. We increased his hydralazine to 75, and will add Norvasc to get the blood pressure under control. 3. Hyperkalemia. We stopped his potassium. We will recheck his potassium in the morning. 4. End-stage renal disease. The patient on dialysis of Sunday, Sunday, and Sunday. 5. Bilateral pleural effusions. Dr. Vickers the patient and we will monitor the patient for now. No interventions needed at this point. We will follow up with him in 3 weeks in the office. 6. Prophylaxis. Will put the patient on heparin. CODE STATUS: The patient is a full code.
[2017-01-13 12:05] VITALS: BP 167/76
--- NOTE | 2017-01-13 18:31 | DISCHARGE SUMMARY ---
ADMISSION DATE: 01/10/2017 DISCHARGE DATE: 01/13/2017 PRIMARY CARE PHYSICIAN: Dr. Steven Avila. WORD PROCESSING OPERATOR: Dr. Garcia. RETURNER: Dr. Gary. STONE GRADER: Dr. Fermin Garcia. DISCHARGE DIAGNOSES: 1. Atrial fibrillation with rapid ventricular response. 2. Hypertension. 3. End-stage renal disease. 4. Bilateral pleural effusion. Chronic. 5. Anemia due to chronic disease. 6. Gastroesophageal reflux disease. 7. Benign prostatic hypertrophy. DISCHARGE MEDICATIONS: 1. Multivitamin one tablet p.o. daily. 2. Neurontin 200 mg at bedtime. 3. Protonix 40 mg p.o. daily. 4. Renvela 800 mg p.o. b.i.d. 5. Sodium bicarb 1300 mg p.o. daily. 6. Flomax 0.4 mg p.o. at bedtime. 7. Sensipar 60 mg at bedtime. 8. Tylenol 650 one tablet p.o. q.6. 9. Aspirin 81 one tablet p.o. daily. 10. Coreg 12.5, 1 tablet p.o. q.12. 11. Hydralazine 100 mg p.o. t.i.d. 12. Isosorbide 40 mg p.o. b.i.d. CONSULTATION: Cardiology was consulted for atrial fibrillation with rapid ventricular response. Dr. Fermin Garcia saw the patient and did not recommend oral anticoagulations. SIGNIFICANT LABORATORY AND IMAGING: White count 4.06, hemoglobin 9.6, hematocrit of 30.0, platelets 109,000. Chemistry: Sodium 139, potassium 5.6, chloride 100, bicarb of 41, creatinine 7.1, glucose of 83. Echocardiogram showing EF of 40-45% with impairments globally. HOSPITAL COURSE: The patient is a 71-year-old white male, admitted to the hospital for palpitations and was found to have atrial fibrillation with rapid ventricular response. The patient was admitted to our service and started him on diltiazem drip. The patient's rate was quickly converted to normal sinus rhythm. Cardiology saw the patient. Did echocardiogram. No additional intervention needed from this standpoint. No recommendation for oral anticoagulation because of history of bleeding. We have been titrating medications. The best regimen Cardiology recommended was to have the patient on Imdur and hydralazine 3 times a day, take them together and we put him back on his Coreg for his rate control. We consulted Pulmonology because of the chronic pleural effusions. Dr. Gary saw the patient and did not recommend thoracentesis at this point. He will see the patient back in the office in about 2 and half weeks and will decide it then. Overall the patient doing well. Cardiac enzymes were negative. Will plan to discharge the patient home. At discharge his condition is stable and improving. ACTIVITY: As tolerated. FOLLOWUP: The patient can follow with his PCP in 1-2 weeks. Total time discharging this patient is 35 minutes.
[2017-01-14] MEDS ORDERED: NORVASC PO SCH (09:00)
== END 2017-01-13 15:45 | disposition home or self-care (01) | DRG 308 ==
LOC: ED 11:36 → 3S 15:30
PROVIDERS: ATTEND Internal Medicine
PROC: 5A1D00Z (ICD-10-PCS; principal; 2017-01-12)
DX: I48.0 Paroxysmal atrial fibrillation (principal); N18.6 End stage renal disease; I13.2 Hypertensive heart and chronic kidney disease with heart failure and with stage 5 chronic kidney disease, or end stage renal disease; J90 Pleural effusion, not elsewhere classified; D69.6 Thrombocytopenia, unspecified; I42.0 Dilated cardiomyopathy; I27.2 Other secondary pulmonary hypertension; K50.90 Crohn's disease, unspecified, without complications; I50.22 Chronic systolic (congestive) heart failure; I73.9 Peripheral vascular disease, unspecified; Z99.2 Dependence on renal dialysis; Z87.891 Personal history of nicotine dependence; Z79.899 Other long term (current) drug therapy; E87.5 Hyperkalemia; Z79.82 Long term (current) use of aspirin; Z79.52 Long term (current) use of systemic steroids; E21.5 Disorder of parathyroid gland, unspecified; G25.81 Restless legs syndrome; I34.0 Nonrheumatic mitral (valve) insufficiency; R74.8 Abnormal levels of other serum enzymes; D63.8 Anemia in other chronic diseases classified elsewhere; Z91.19 Patient's noncompliance with other medical treatment and regimen; Z82.49 Family history of ischemic heart disease and other diseases of the circulatory system; Z83.3 Family history of diabetes mellitus; Z90.49 Acquired absence of other specified parts of digestive tract; Z80.0 Family history of malignant neoplasm of digestive organs; Z87.442 Personal history of urinary calculi; Z86.718 Personal history of other venous thrombosis and embolism; Z85.828 Personal history of other malignant neoplasm of skin
CPT/HCPCS: 36415; 71020; 71250; 80048; 80053; 82550; 83735; 83880; 84439; 84443; 84484; 85025; 85379; 85610; 85651; 85730; 86140; 93005; 93306; 94761; 94799; 96365; 96375; J0885; J1160; J1644; J7030; J7512; 99285-25

== ENCOUNTER 2017-02-20 22:35 | Inpatient (IN) ==
--- NOTE | 2017-02-20 23:16 | PROVIDER DOCUMENTATION ---
HPI-General Adult - General Chief Complaint: General Adult Stated Complaint: RT LEG PAIN/BURNING Time Seen by Provider: 02/20/17 22:54 Source: patient Allergies/Adverse Reactions: Patient Allergies Allergy/AdvReac Type Severity Reaction Status Date / Time ciprofloxacin [From Cipro] Allergy Intermediate SWELLING Verified 02/20/17 23:20 Home Medications: Home Medication List Medication Instructions Recorded Confirmed Last Taken Type Cyanocobalamin/Folic Acid [Vitamin 1 each PO DAILY 05/30/15 02/20/17 02/20/17 07 :00 History [id number] Acid Tablet] Gabapentin [Neurontin] 200 mg PO QHS 05/30/15 02/20/17 02/20/17 20:00 History Pantoprazole [Protonix] 40 mg PO DAILY@0700 05/30/15 02/20/17 02/20/17 07:00 History Sevelamer Carbonate [Renvela] 800 mg PO TID CC 05/30/15 02/20/17 02/19/17 History Sodium Bicarbonate 1,300 mg PO BID 05/30/15 02/20/17 02/20/17 07:00 History Tamsulosin HCl [Flomax] 0.4 mg PO QHS 05/30/15 02/20/17 02/20/17 20:00 History Cinacalcet HCl [Sensipar] 60 mg PO HS 09/14/16 02/20/17 02/19/17 History Aspirin EC 81 mg PO DAILY #0 tablet 09/20/16 02/20/17 02/20/17 07:00 Rx Hydralazine HCl 100 mg PO TID #90 tablet 01/13/17 02/20/17 02/20/17 07:00 Rx Isosorbide Dinitrate [Isordil] 40 mg PO TID #180 tablet 01/13/17 02/20/17 14:30 Rx Diltiazem HCl [Diltiazem ER] 360 mg PO DAILY 02/20/17 02/20/17 02/20/17 07:00 History Metoprolol [Lopressor] 25 mg PO BID 02/20/17 02/20/17 02/20/17 07:00 History Prednisone 5 mg PO DAILY 02/20/17 02/20/17 02/20/17 07:00 History - History of Present Illness -Gen Adult Nature of Presenting Problems: Pt is a renal dialysis pt who comes in with redness to his right lower ext and blisters and burning to that extremity. The patient has a weak pulse in his RLE. He has chronic venous stasis and has been treating it with a cream and uni boot. This has caused the hard skin to come off but now the leg has developed blistering. He states it astudillo "like fire" and the more his leg hurt the more he felt CP and pressure that didn't radiate. The patient has chronic Afib. Was about to D/C patient and he has had diarrhea for 2 week since having his medications changed. Review of Systems - Adult - REVIEW OF SYSTEMS - ADULT Constitutional: reports: no symptoms reported. denies: chills, fever, fatique, night sweats, weight gain, weight loss Eyes: reports: no symptoms reported. denies: discharge, dry eyes, decreased vision, blurred vision, double vision, eye pain, redness Ears, Nose, Mouth & Throat: reports: no symptoms reported. denies: ear discharge, ear pain, hearing loss, epistaxis, nose pain, loose teeth, mouth/ dental pain, mouth swelling, throat pain, throat swelling Cardiovascular: reports: see HPI, chest pain, irregular heart rate, poor circulation. denies: edema, heart murmur, orthopnea, palpitations, PND, syncope Respiratory: reports: no symptoms reported. denies: chronic cough, cough, dyspnea on exertion, excessive sputum production, hemoptysis, pleurisy, shortness of breath Gastrointestinal: reports: see HPI, diarrhea, nausea. denies: abdominal pain, hematemesis, constipation, difficulty swallowing, frequent heartburn, poor appetite, rectal bleeding, vomiting Genitourinary: reports: no symptoms reported. denies: dysuria, discharge, frequency, hematuria, hesitency, incontinence, urinary retention, urgency Musculoskeletal: reports: see HPI, bone pain. denies: back pain, frequent leg cramps, joint pain, joint swelling, muscle aches, muscle weakness, neck pain Integumentary: reports: see HPI, skin sores/ulcer. denies: hives, hair loss, itching, mole changes, nail changes, rash, skin thickening Neurological: reports: no symptoms reported. denies: ataxia, dizziness/vertigo , headache/migraines, loss of balance, numbness, seizure, slurred speech, syncope, tremors Psychiatric: reports: no symptoms reported. denies: anxiety, alcohol/drug dependence, depression, emotional problems, panic attacks, suicidal thoughts Endocrine: reports: no symptoms reported. denies: change in skin pigment, excessive sweating, goiter, cold intolerance, heat intolerance, polyuria Hematologic/Lymphatic: reports: no symptoms reported. denies: blood clots, easy bruising, low blood count, lymphedema, prolonged bleeding, swollen lymph nodes, transfusions Allergic/Immunologic: reports: no symptoms reported. denies: allergic reactions , asthma, eczema, food allergy, frequent infections, hay fever, hives, positive PPD, urticaria All Other Systems: Reviewed and Negative Past History - Adult - PAST MEDICAL HISTORY-ADULT Review of Records: reports: Old Records Reviewed, Nursing Assessment Review, Medications Reviewed, Social history reviewed & non-contributory. Major Childhood Illnesses: reports: denies history Cardiovascular: reports: A-Fib, HTN, PVD Respiratory: reports: denies history Gastrointestinal: reports: Crohn's Obstetrical/Gynecological: reports: denies history Genitourinary: reports: dialysis (MWF), ESRD, other Musculoskeletal: reports: denies history Neurological: reports: denies history Endocrine/Immune: reports: denies history Other Conditions: reports: denies history - PRIOR SURGERIES/PROCEDURES Surgical/Procedure History: reports: indwelling device (Av fistula), bowel surgery - IMMUNIZATION STATUS Childhood Immunizations: See Nurse Assessment Flu Vaccine: See Nurse Assessment - FAMILY HISTORY Family History: reviewed, not pertinent - SOCIAL HISTORY Smoking: denies Substance Use: none/never Alcohol Use Frequency: never Living Situation: family Physical Exam-General - PHYSICAL EXAM-ADULT Initial Vital Signs Reviewed: Yes - CONSTITUTIONAL General Appearance: alert, no apparent distress, thin, other (chronically ill appearing) - EYES Eyes: PERRL/EOMI, pink conjunctivae - HEAD, EARS, NOSE, MOUTH & THROAT HENMT: normocephalic/atraumatic, moist mucous membranes, normal ENT inspection, TMs normal, pharynx normal - NECK Neck: non-tender, full range of motion, supple, normal inspection - RESPIRATORY Respiratory: chest non-tender, lungs clear, normal breath sounds, no pleuratic chest pain, no respiratory distress, no accessory muscle use - CARDIOVASCULAR Cardiovascular: normal peripheral pulses, no edema, no gallop, no JVD, no murmur , irregularly irregular - GASTROINTESTINAL (ABDOMEN) Abdominal Exam: normal bowel sounds, non tender, soft, no organomegaly, no pulsatile mass - LYMPHATIC Lymphatic: no adenopathy - MUSCULOSKELETAL Back Exam: normal inspection, no CVA tenderness, no vertebral tenderness Extremity: normal range of motion, normal gait, no pedal edema, no calf tenderness, normal capillary refill, pelvis stable, erythema, slow capillary refill, tenderness Peripheral Pulses: dorsalis-pedis (R): 1+, dorsalis-pedis (L): 1+ - SKIN Integumentary: normal turgor, erythema, tenderness, other (blistering) - NEUROLOGIC Neurologic: proofer II-XII nml as tested, no motor/sensory deficits - PSYCHIATRIC Psych/Mental Status: normal mood/affect, normal thought content, normal thought process, oriented x 3 Progress - PLAN OF CARE/RESULTS Progress/Plan/Lab Results: Vital Signs - 8 hr 02/20/17 22:37 Temperature 97.8 F Pulse Rate 101 H Respiratory Rate 20 Blood Pressure 136/60 O2 Sat by Pulse Oximetry 100 Orders Category Date Time Status CBC WITH DIFF [HEME] Stat Lab 02/20/17 23:08 Ordered CK PROFILE [SP CHEM] Stat Lab 02/20/17 23:10 Uncollected COMPREHENSIVE METABOLIC PANEL [CHEM] Stat Lab 02/20/17 23:08 Uncollected TROPONIN T Stat Lab 02/20/17 23:10 Uncollected EKG [EKG] Stat Ther 02/20/17 22:40 Ordered Venous U/S Right Leg Stat Ther 02/20/17 23:08 Ordered Result Diagrams: 02/20/17 23:12 02/20/17 23:12 - ULTRASOUND (By Radiology) 1 US Study: Lower Ext Impression: Abnormal US Results: chronic appearing dvt and poor arterial flow (e d tech) - CONSULTS/PCP/HOSPITALIST Notification #1 *Consult/PCP/Hospitalist*: reinaldo Time Discussed: 01:15 Consult Disposition: Will see in ED, Admit Departure - Departure Time of Disposition Decision: 01:14 DIAGNOSIS: PVD (peripheral vascular disease) Chronic renal failure Qualifiers: Chronic kidney disease stage: stage 5 Qualified Code(s): N18.5 - Chronic kidney disease, stage 5 Diarrhea Qualifiers: Diarrhea type: unspecified type Qualified Code(s): R19.7 - Diarrhea, unspecified Disposition: ADMITTED INPATIENT 09 Certified Medical Emergency: Emergent Condition: Good Additional Freetext Instructions: ED Follow Up Instructions: You have been treated by a care provider in the Emergency Department. These instructions are being provided to you so you can have an understanding of how to care for yourself upon discharge. Upon discharge from the Emergency Department, you are responsible for making arrangements for follow-up care by a physician of your choice. Take all prescribed medications as directed. Return to the Emergency Department immediately for any new or worsening symptoms. You may call the Physician Referral phone number at [phone] to obtain a list of Physicians who are taking new patients. Referrals and Follow-Ups: Steven Avila [Primary Care Provider] - Attestation - Physician/ MAYUR Attestation Patient care was provided by Advanced Practice Provider:: Yes Advanced Practice Provider:: Nash Marks Advanced Practice Provider documentation review:: The Mid-level provider documentation, treatment plan and medical decision making was reviewed by the physician who agrees with all treatment and medical decision making by the MLP.
[2017-02-20] MEDS ORDERED: DILAUDID IV ONE (23:18)
[2017-02-20 23:35] LABS: BASO% 0.3 % (0.0-0.8); EOS# 0.07 X1000 (0.0-0.7); EOS% 0.9 % (0.0-10.0); HEMATOCRIT 33.2 % (42.0-52.0); IMM GRAN# 0.07 X1000 (0.0-0.04); IMM GRAN% 0.9 % (0.0-0.5); LYMPH# 0.44 X1000 (1.2-3.4); LYMPH% 5.9 % (20.5-51.1); MANUAL DIFF NEEDED? NO; MCH 31.3 PG (27-31); MCHC 33.1 g/dL (33-37); MCV 94.6 FL (81-99); MONO# 0.67 X1000 (0.11-0.59); MPV 10.4 FL (7.4-10.4); PLT 134 X1000 (130-400); RBC 3.51 XMIL (4.7-6.1)
[2017-02-21 00:35] LABS: ALBUMIN 3.6 g/dL (3.5-5.0); POTASSIUM 3.9 mmol/L (3.5-5.1); TOTAL BILIRUBIN 0.26 mg/dL (0.20-1.00); TOTAL PROTEIN 6.2 g/dL (6.3-8.3)
[2017-02-21] MEDS ORDERED: DILAUDID IV ONE (01:10)
[2017-02-21] MEDS ORDERED: ZOFRAN IV ONE (01:10)
--- NOTE | 2017-02-21 03:05 | HISTORY AND PHYSICAL ---
CHIEF COMPLAINT: Right lower extremity pain and blisters. HISTORY OF PRESENTING ILLNESS: A 71-year-old male with a history of severe peripheral vascular disease, end-stage renal disease, atrial fibrillation, and hypertension who had presented to emergency department with a complaint of severe pain in the right lower extremity and blisters forming over the past several days. The patient states that his pain was not tolerable and subsequently had come to the emergency department. In the ER, he was evaluated. He had venous Dopplers done which did show some chronic DVTs. Otherwise, no other findings were noted as per ER physician. At the time of my examination, patient states that his leg was throbbing and very painful, and it seemed to be worsening. The patient states that he did have a vascular surgery evaluation done and at that time, he was still waiting to find out what his options were. The patient, at the time my examination, had denied having any headaches, fevers, chills, chest pain, shortness of breath, or any weight changes. PAST MEDICAL HISTORY: Includes end-stage renal disease, atrial fibrillation, thrombocytopenia, hypertension, chronic peripheral vascular disease, pulmonary hypertension, CHF, diastolic dysfunction. PAST SURGICAL HISTORY: Right leg DVT, left upper extremity AV fistula, colon resection, cataract surgery. ALLERGIES: To ciprofloxacin. CURRENT MEDICATIONS: As listed in the MAR. SOCIAL HISTORY: He denies currently any history of smoking, alcohol, or illicit drug use. FAMILY HISTORY: No history of coronary disease. REVIEW OF SYSTEMS: Twelve point review of systems listed as in the HPI. Other systems negative. PHYSICAL EXAMINATION: GENERAL: Cooperative, friendly male. He is resting comfortably now. VITAL SIGNS: Temperature 97.8 degrees, pulse 101, respirations 20, blood pressure 136/60. HEENT: Atraumatic, normocephalic. Extraocular movements intact. PERRLA. NECK: No masses. CHEST: Clear to auscultation. CARDIOVASCULAR: Regular rate and rhythm. ABDOMEN: Soft. Positive bowel sounds. EXTREMITIES: Right lower extremity has some blisters noted and no palpable pulses. : No bladder distention. SKIN: Warm. LABORATORIES AND STUDIES: Sodium 137, potassium 3.9, chloride 104, CO2 is 9, BUN is 28, creatinine is 8.4, glucose is 103, calcium 7. WBCs 7.43, hemoglobin 11, hematocrit 33.2, platelets 134,000. ASSESSMENT: A 71-year-old male with a history of end-stage renal disease, atrial fibrillation, peripheral vascular disease, and hypertension who presented to the emergency department with complaint of right lower extremity pain and blisters for the past several days. It was suspected that the patient has chronic limb ischemia and will be admitted for further evaluation. 1. Right lower extremity pain/suspected chronic limb ischemia. 2. End-stage renal disease on renal dialysis on Sunday, Sunday, Sunday, 3. Hypertension. 4. Hypocalcemia. 5. Chronic congestive heart failure, diastolic dysfunction. PLAN: 1. We will admit patient to the medical floor with telemetry. 2. We will consult vascular surgery. 3. We will put patient on heparin. 4. We will consult nephrology for dialysis. 5. We will monitor blood pressure, resume antihypertensive agents. 6. We will replace his calcium. 7. We will continue to follow and reassess. cc: Ray Blackburn MD
[2017-02-21] MEDS ORDERED: CALCIUM GLUCONATE 1 GM in NS 50 ML IV ONE (03:34)
--- NOTE | 2017-02-21 05:13 | EKG Report ---
Test Performed on : 02/20/2017 10:45:34 PM Test Reason : cp Blood Pressure : / mmHG Vent. Rate : 085 BPM Atrial Rate : 089 BPM P-R Int : 000 ms QRS Dur : 128 ms QT Int : 398 ms P-R-T Axes : 000 -13 115 degrees QTc Int : 473 ms Atrial fibrillation. with premature ventricular or aberrantly conducted complexes. Left ventricular hypertrophy with QRS widening T wave abnormality, consider lateral ischemia Abnormal ECG When compared with ECG of 10-JAN-2017 11:47, Vent. rate has decreased BY 45 BPM Unconfirmed Result
[2017-02-21] MEDS: DILAUDID IV PRN ×3 (06:31→22:24)
[2017-02-21] MEDS ORDERED: NS 2,000 ML MISC PRN (07:33)
[2017-02-21] MEDS ORDERED: HEPARIN IV PRN (07:33)
[2017-02-21] MEDS ORDERED: TIGHT: 0.2 ML/HR MISC PRN (07:33)
[2017-02-21] MEDS: PRILOSEC PO SCH (07:49)
[2017-02-21] MEDS ORDERED: NS 2,000 ML ONE ×2 (08:04→11:54)
[2017-02-21] MEDS ORDERED: HEPARIN ONE (08:04)
[2017-02-21] MEDS ORDERED: VITAMIN B-12 PO SCH (09:00)
[2017-02-21] MEDS: APRESOLINE PO SCH ×3 (09:33→17:06)
[2017-02-21] MEDS: LOPRESSOR PO SCH ×2 (09:34→22:21)
[2017-02-21] MEDS: RENAGEL PO SCH ×3 (09:34→17:06)
[2017-02-21] MEDS: SODIUM BICARBONATE PO SCH ×2 (09:34→22:21)
[2017-02-21] MEDS: CARDIZEM CD PO SCH (09:35)
[2017-02-21] MEDS: PREDNISONE PO SCH (09:36)
[2017-02-21] MEDS: ISORDIL PO SCH ×3 (09:38→17:07)
[2017-02-21] MEDS: HEPARIN SUBQ SCH ×2 (09:40→22:20)
[2017-02-21] MEDS: ASPIRIN EC PO SCH (09:40)
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
--- NOTE | 2017-02-21 10:39 | CONSULTATION ---
DATE OF CONSULTATION: 02/21/2017 REASON FOR ADMISSION: Right lower extremity pain, chronic limb ischemia. REASON FOR CONSULTATION: End-stage renal disease management, assist with medical management. CONSULTING PHYSICIAN: Dr. Blackburn. HISTORY OF PRESENT ILLNESS: This is a 71-year-old gentleman well known to our service for end- stage renal disease on hemodialysis on a Sunday, Sunday, Sunday schedule at the [facility]. He is very compliant with his dialysis and he was seen just this last week. He has a history of severe peripheral vascular disease along with a history of atrial fibrillation and thrombocytopenia. He had seen by surgery in the past for some lung issues and was supposed to go back for a workup of his peripheral vascular disease and pain to the legs. The patient states that he just never went back. He states that he never did decide what his options might be as far as treatment for his PVD. He states that he had been having severe pain to the right lower extremity over the last couple of days. This increased to the point that he could no longer tolerate this. He presented to the emergency room for further workup and treatment. In the ER, he did have venous Dopplers that showed chronic DVTs but no other new findings. He denied any other symptoms. We have been asked to see him to assist with management and his dialysis needs. PAST MEDICAL HISTORY: End-stage renal disease with hemodialysis Sunday, Sunday, Sunday. Atrial fibrillation, thrombocytopenia, hypertension, chronic peripheral vascular disease, pulmonary hypertension, CHF, diastolic dysfunction. He has had are a right leg DVT. BPH, peripheral neuropathy, GERD, hyperphosphatemia, and hypercalcemia. PAST SURGICAL HISTORY: Left upper extremity fistula, colon resection, cataract surgery. ALLERGIES: Ciprofloxacin. HOME MEDICATIONS: Sodium bicarbonate, Flomax, Neurontin, Protonix, Renvela, vitamin B12, Sensipar, hydralazine, Isordil, prednisone, Lopressor, and diltiazem. FAMILY HISTORY: Noncontributory. SOCIAL HISTORY: He is . No ETOH or illicit drug use. He is a former smoker. REVIEW OF SYSTEMS: As noted above. PHYSICAL EXAMINATION: Vital Signs: Temperature 98.5 degrees, pulse 95, respiratory rate 16, blood pressure 115/62. Intake 300 mL, output none. General: This is an elderly gentleman resting in bed. He is in mild distress secondary to pain in his legs. He is able to give an appropriate history and assists with the examination. HEENT: Normocephalic and atraumatic. Oral mucosa moist. Neck: Supple. Trachea midline. No JVD. Cardiovascular: Irregularly irregular rhythm. Rate controlled. Pulmonary: He has equal excursion. He has no increased work of breathing. Abdomen: Flat, soft. Positive bowel sounds. : Not inspected. He has minimal void with hemodialysis assist. Extremities: He has vascular changes noted to bilateral lower extremities. He does have some blistering noted and is tender to touch. He has no pretibial edema. Integumentary: Skin is warm and dry with the above noted. Neurologic: Grossly nonfocal. LAB DATA: Labs on the . WBC of 7.4, hemoglobin 11, hematocrit 33.2, and platelet count of 134,000. Sodium 137, potassium 3.9, CO2 9, BUN 28, creatinine 8.4, calcium 7, albumin 3.6. ASSESSMENT AND PLAN: 1. End-stage renal disease management. Today is his routine dialysis day. We will plan to dialyze him on a 2 K bath/UF to dry weight, 4 hour treatment. 2. Right lower extremity pain, suspected chronic limb ischemia. Followed by primary, seen by Dr. Alas in the past and Dr. Alas already has a consult ordered by the primary. 3. Hypertension, controlled. 4. Hyperphosphatemia. Continue on current medications. 5. Chronic acidosis. Continue on current medications. Dialyze today. 6. Other electrolytes in target. 7. Anemia, stable. Seen, data reviewed, discussed with Sera Saavedra on 02/21/17. I agree with the above assessment and plan of care. rg Dictated by MELVA Hernandez for Adria Garcia MD cc: Adria Garcia MD [facility]
[2017-02-21] MEDS ORDERED: DILAUDID ONE (12:40)
[2017-02-21] MEDS ORDERED: VANCOMYCIN IV PER PHARMACY MISC SCH (16:45)
[2017-02-21] MEDS: ZOSYN 2.25 GM/NS 2.25 GM/50 ML IVPB IV SCH ×2 (17:07→22:20)
[2017-02-21] MEDS ORDERED: VANCOMYCIN 1 GM/NS 1 GM/250 ML IVPB IV ONE (18:00)
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
[2017-02-21] MEDS: NEURONTIN PO SCH (22:21)
[2017-02-21] MEDS: SENSIPAR PO SCH (22:21)
[2017-02-21] MEDS: FLOMAX PO SCH (22:21)
--- NOTE | 2017-02-21 22:21 | Diag Imaging Result Document ---
PROCEDURE NAME: EXTREM LOWER W/O CONTRAST - 02/21/2017 STUDY: CT lower extremities from the knees to the ankles without contrast. FINDINGS: There is severe atherosclerosis throughout both lower extremities. No well defined fluid collection. No abscess. No fracture, dislocation or other bony abnormality identified. IMPRESSION: Severe atherosclerosis. A preliminary report was given at 9:16 p.m.
[2017-02-22] MEDS: ZOSYN 2.25 GM/NS 2.25 GM/50 ML IVPB IV SCH ×4 (05:01→21:54)
[2017-02-22 05:52] LABS: MANUAL DIFF NEEDED? NO
[2017-02-22 05:59] LABS: BASO% 0.2 % (0.0-0.8); EOS# 0.06 X1000 (0.0-0.7); EOS% 1.2 % (0.0-10.0); HEMATOCRIT 30.6 % (42.0-52.0); IMM GRAN# 0.03 X1000 (0.0-0.04); IMM GRAN% 0.6 % (0.0-0.5); LYMPH% 8.2 % (20.5-51.1); MCH 30.9 PG (27-31); MCHC 32.7 g/dL (33-37); MCV 94.4 FL (81-99); MONO# 0.44 X1000 (0.11-0.59); MPV 10.2 FL (7.4-10.4); NEUT% 80.8 % (42.2-75.2); PLT 109 X1000 (130-400); RBC 3.24 XMIL (4.7-6.1)
[2017-02-22 06:18] LABS: POTASSIUM 3.1 mmol/L (3.5-5.1)
[2017-02-22] MEDS: PRILOSEC PO SCH (06:44)
[2017-02-22] MEDS: RENAGEL PO SCH ×3 (09:22→17:10)
[2017-02-22] MEDS: CARDIZEM CD PO SCH (10:04)
[2017-02-22] MEDS: ISORDIL PO SCH ×3 (10:04→17:09)
[2017-02-22] MEDS: SODIUM BICARBONATE PO SCH ×2 (10:05→21:55)
[2017-02-22] MEDS: APRESOLINE PO SCH ×3 (10:05→17:10)
[2017-02-22] MEDS: ASPIRIN EC PO SCH (10:06)
[2017-02-22] MEDS: VITAMIN B-12 PO SCH (10:06)
[2017-02-22] MEDS: LOPRESSOR PO SCH ×2 (10:06→21:55)
[2017-02-22] MEDS: HEPARIN SUBQ SCH ×2 (10:07→21:55)
[2017-02-22] MEDS: PREDNISONE PO SCH (10:07)
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
--- NOTE | 2017-02-22 13:57 | PROGRESS NOTE ---
DATE: 02/22/2017 SUBJECTIVE: Mr. Byrne has little less pain in the right leg but still pretty uncomfortable. OBJECTIVE: Temperature 97.9, pulse 104, respirations 18, blood pressure 111/73. Pupils are equal, round. CVP less than 6 cm. Lungs are clear in all lung campos. Good urine output. LABORATORY DATA: White count 4880, hematocrit 30, platelet count 109,000. Chemistry: Sodium 139, potassium 3.1, chloride 101, bicarb 18. BUN 34, creatinine 6.5. Calcium 7.0. Troponin was 0.0151. ASSESSMENT AND PLAN: We canceled the noninvasive arterial studies. They were too painful for him. CT of his extremities, knees and ankles, without contrast showed severe atherosclerosis. He has quite a bit of blistering and pain around that leg consistent with cellulitis. We are going to continue IV antibiotics. Dr. Alas is following. He plans on debriding the bullae and decisions later on about how to address his ischemia. Looking over his orders, I do not see any change at this point. He is on vancomycin, and he is on Zosyn. cc: Francois Weber MD
--- NOTE | 2017-02-22 15:13 | PROGRESS NOTE ---
DATE: 02/22/2017 SUBJECTIVE: Patient resting in bed. Dr. Alas came around today and debrided the blisters to the right lower extremity. He is trying to get up to now to go and shower. OBJECTIVE: Vital Signs: Temperature 97.9 degrees, pulse 104, respiratory rate 18, blood pressure 111/73. Intake 1.1 L. Output 600 mL. PHYSICAL EXAMINATION: General: This is an elderly gentleman resting in bed. He is awake and alert. He is in no acute distress. HEENT: Normocephalic, atraumatic. Oral mucosa moist. Neck: Supple. Trachea midline. He has no JVD. Cardiovascular: Reveals a regular rate and rhythm. No murmur or gallop appreciated. Pulmonary: He has equal excursion. He is clear bilaterally. Abdomen: Soft with positive bowel sounds. : Not inspected. He has minimal void with hemodialysis assist. Extremities: He has a large dressing to the right lower extremity. There is no bleeding noted. He has no edema. Moving all extremities and ambulatory with assistance. Integumentary: Skin is warm and dry otherwise. LAB DATA: WBC of 4.8. Hemoglobin 10. Sodium 139, potassium 3.1, CO2 18, BUN 34, creatinine 6.5, calcium 7.0. ASSESSMENT AND PLAN: 1. End-stage renal disease management. Tomorrow is his routine dialysis day. We will draw labs in the morning. Adjust his bath as appropriate. 2. Right lower extremity pain. It was felt more related to infection than ischemia. He will continue on antibiotics per primary and surgery. Will continue to follow. 3. Electrolytes, acid-base balance, anemia. These are stable at this time. 4. Hypertension, controlled. Seen, data reviewed, discussed with Sera Saavedra on 02/22/17. I agree with the above assessment and plan of care. rg Dictated by MELVA Hernandez for Adria Garcia MD cc: Adria Garcia MD [facility] HOSPITALAmanda
[2017-02-22] MEDS ORDERED: VANCOMYCIN 1 GM/NS 1 GM/250 ML IVPB IV SCH (16:15)
[2017-02-22] MEDS ORDERED: TAZIDIME 1 GM in NS 50 ML IV SCH (17:00)
--- NOTE | 2017-02-22 17:38 | PROGRESS NOTE ---
DATE: 02/22/2017 PRESENT ILLNESS: The patient has cellulitis of the right leg. Unfortunately he has, as seen on CAT scan, diffuse atherosclerosis of all of his arteries. MEDICATIONS: He is receiving vancomycin after each dialysis and IV Zosyn in a reduced dose because of the patient's renal failure. LAB AND X-RAY: The CBC for today shows a white count of 4880. Hemoglobin 10 and platelet count 109,000. Creatinine is 6.5, GFR is 9. The patient's wound culture is sterile. Stool for culture for pathogens and Clostridium difficile was negative. CT scan of the right lower extremity showed diffuse atherosclerosis and no abscess. ASSESSMENT AND PLAN: Patient has cellulitis of the right leg. Unfortunately, he has diffuse atherosclerosis and I would think it would make revascularizing his leg impossible. I have changed the patient from Zosyn to ceftazidime. Therefore both of his antibiotics, namely vancomycin and ceftazidime can be given after dialysis. I think the patient tomorrow could be sent home where he will just have to rest for awhile and not be on his legs much. As you and I talked about, we think it would be good to treat him for 2 weeks with the vancomycin and ceftazidime after each dialysis. COMORBIDITIES: Include he has end-stage renal disease. He is on dialysis and unfortunately in his leg, he has diffuse atherosclerosis which severely limits the blood supply in the leg, especially to the distal part of the leg. The patient's biggest comorbidity is that he has diffuse atherosclerosis of the leg and hemodialysis. The patient also is elderly. cc: Renzo Tan MD
[2017-02-22] MEDS: DILAUDID IV PRN (18:04)
[2017-02-22] MEDS: NEURONTIN PO SCH (21:55)
[2017-02-22] MEDS: SENSIPAR PO SCH (21:55)
[2017-02-22] MEDS: FLOMAX PO SCH (21:55)
[2017-02-23] MEDS: ZOSYN 2.25 GM/NS 2.25 GM/50 ML IVPB IV SCH (04:46)
[2017-02-23 05:18] VITALS: BP 115/77
[2017-02-23] MEDS: PRILOSEC PO SCH ×2 (05:44→07:53)
[2017-02-23] MEDS ORDERED: HEPARIN IV PRN (07:18)
[2017-02-23] MEDS ORDERED: NS 2,000 ML MISC PRN (07:18)
[2017-02-23] MEDS ORDERED: TIGHT: 0.2 ML/HR MISC PRN (07:18)
[2017-02-23] MEDS ORDERED: HEPARIN ONE (08:26)
[2017-02-23] MEDS ORDERED: NS 2,000 ML ONE (08:26)
--- NOTE | 2017-02-23 09:43 | DISCHARGE SUMMARY ---
ADMISSION DATE: 02/21/2017 DISCHARGE DATE: 02/23/2017 HISTORY OF PRESENT ILLNESS: This is a 71-year-old with history of severe peripheral vascular disease, end-stage renal disease, atrial fibrillation, and hypertension, presented to the emergency department complaining of severe pain in the right lower extremity, blisters forming over the past couple days and evidence of cellulitis. He has apparently a long-standing history of peripheral vascular disease. His leg has been throbbing and hurting. PAST MEDICAL HISTORY: 1. End-stage renal disease, on hemodialysis. 2. Atrial fibrillation. 3. Thrombocytopenia. 4. Hypertension. 5. Chronic peripheral vascular disease. 6. Pulmonary hypertension. 7. Congestive heart failure. 8. Diastolic dysfunction. PAST SURGICAL HISTORY: Right leg DVT, left upper extremity AV fistula for hemodialysis, colon resection, cataract surgery. HOSPITAL COURSE: Admitted. Put on IV antibiotics. Dr. Alas was consulted. Had a lower extremity CT done. He has severe atherosclerosis throughout both lower extremities. No well- defined fluid collection. No abscess. No fracture or dislocation. Dr. Alas debrided the leg. It did feel better. Plan to continue his antibiotics. Appreciate Dr. Alas and Dr. Tan' help. There is really no surgical intervention be done on that leg even though there is clearly some vascular insufficiency. He will continue hemodialysis. He is receiving vancomycin and IV Zosyn, reduced dose because of patient's renal failure. The patient can go home and set him up for 2 more weeks of vancomycin and ceftazidime. After dialysis, we will get things ready and he can go home. DISCHARGE MEDICATIONS: Will be as follows: Aspirin 81 mg a day, Sensipar 60 mg at bedtime, vitamin B12 500 mcg daily, Cardizem CD 360 mg a day, Neurontin 200 mg at bedtime, Apresoline 100 mg t.i.d., Isordil 40 mg t.i.d., Lopressor 25 mg b.i.d., Prilosec 20 mg a day, prednisone 5 mg a day, Renagel 800 mg p.o. t.i.d., sodium bicarbonate 1300 mg p.o. b.i.d., Flomax 0.4 mg at bedtime, and as I said, he will continue with vancomycin after dialysis, as well as the ceftazidime 1 g after dialysis. FOLLOWUP: With Dr. Garcia and primary care. cc: Francois Weber MD
[2017-02-23] MEDS: APRESOLINE PO SCH ×2 (09:45→13:51)
[2017-02-23] MEDS: PREDNISONE PO SCH (09:45)
[2017-02-23] MEDS: SODIUM BICARBONATE PO SCH (09:45)
[2017-02-23] MEDS: ASPIRIN EC PO SCH (09:45)
[2017-02-23] MEDS: RENAGEL PO SCH ×2 (09:45→13:51)
[2017-02-23] MEDS: CARDIZEM CD PO SCH (09:46)
[2017-02-23] MEDS: HEPARIN SUBQ SCH (09:46)
[2017-02-23] MEDS: LOPRESSOR PO SCH (09:46)
[2017-02-23] MEDS: VITAMIN B-12 PO SCH (09:46)
[2017-02-23] MEDS: ISORDIL PO SCH ×2 (09:46→13:52)
[2017-02-23] MEDS ORDERED: EPOGEN SUBQ ONE (09:47)
--- NOTE | 2017-02-23 10:10 | PROGRESS NOTE ---
DATE: 02/23/2017 SUBJECTIVE: He is currently on dialysis. Tolerating well. No shortness of breath. He ate his breakfast. OBJECTIVE: Vital Signs: Blood pressure 115/77, heart rate 107, respirations 16, afebrile. PHYSICAL EXAM: No acute distress.Skin: Warm and dry. Conjunctivae are pink. Neck: Neck veins are not distended. Heart: Irregular. Lungs: Have equal breath sounds. No crackles or wheezes. Abdomen: Soft and nontender. Bowel sounds are present. Extremities: Have minimal edema. Right leg is dressed. LABORATORY DATA: Sodium 139, potassium 3.1, chloride 101, bicarbonate 18, BUN 34, creatinine 6.5, hemoglobin 10.0. IMPRESSION: 1. End-stage kidney disease. We will continue his routine dialysis, but we are using a 3 potassium bath today. 2. Electrolytes in target. PLAN: 1. As above. 2. Acid-base. Significantly improved. 3. Anemia. We will dose with erythropoietin today. cc: Adria Garcia MD
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
== END 2017-02-23 14:14 | disposition home health service (06) ==
LOC: ED 22:35 → 4N 02-21 03:15 → SUATTDRO 02-21 03:15
PROVIDERS: ATTEND Emergency Medicine

== ENCOUNTER 2017-03-01 18:51 | Inpatient (IN) ==
[2017-03-01] MEDS ORDERED: NS 1,000 ML IV ONE (19:01)
[2017-03-01 19:27] LABS: BASO% 0.2 % (0.0-0.8); EOS# 0.04 X1000 (0.0-0.7); EOS% 0.8 % (0.0-10.0); HEMATOCRIT 36.5 % (42.0-52.0); HEMOGLOBIN 11.7 g/dL (14.0-18.0); LYMPH# 0.34 X1000 (1.2-3.4); LYMPH% 6.8 % (20.5-51.1); MANUAL DIFF NEEDED? NO; MCH 31.5 PG (27-31); MCHC 32.1 g/dL (33-37); MCV 98.4 FL (81-99); MONO# 0.34 X1000 (0.11-0.59); MONO% 6.8 % (1.7-9.3); MPV 10.6 FL (7.4-10.4); NEUT% 85.4 % (42.2-75.2); PLT 145 X1000 (130-400); RBC 3.71 XMIL (4.7-6.1)
[2017-03-01 19:36] LABS: INR 1.25; PROTIME 13.3 Seconds (9.2-11.7); PTT 36.4 Seconds (22.0-36.0)
[2017-03-01 19:51] LABS: ALBUMIN 3.5 g/dL (3.5-5.0); CALCIUM 7.9 mg/dL (8.8-10.2); MAGNESIUM 1.6 mg/dL (1.5-2.7); POTASSIUM 5.8 mmol/L (3.5-5.1); TOTAL BILIRUBIN 0.32 mg/dL (0.20-1.00); TOTAL PROTEIN 6.5 g/dL (6.3-8.3)
[2017-03-01] MEDS ORDERED: ZOFRAN ODT PO ONE (19:54)
[2017-03-01] MEDS ORDERED: NORCO-5 PO ONE (19:54)
[2017-03-01] MEDS ORDERED: DILAUDID IM ONE ×3 (20:32→21:48)
[2017-03-01] MEDS ORDERED: HUMULIN R IV ONE (20:46)
[2017-03-01] MEDS ORDERED: D50W SYRINGE IV ONE (20:47)
--- NOTE | 2017-03-01 21:42 | HISTORY AND PHYSICAL ---
PRIMARY CARE PHYSICIAN: Dr. Steven Avila METEOROLOGICAL ENGINEER: Dr. Kevin Green HISTORY OF PRESENT ILLNESS: Mr. Alexey Byrne is a 71-year-old man who presents to the ER with complaints of having generalized weakness and vague, substernal chest pain. He denies any shortness of breath or palpitations with this, but did decide to take his blood pressure and his Blood pressure was systolic 67-70. Also of note, his heart rate was in the 40s to 50s and decided to come to the ER. On his way to the ER he developed severe right shoulder pain which is localized, nonradiating. No neck problems, no headaches, no dizziness or any neurological complaints. He says the substernal chest pain was more like a vague dull pain, but started subsiding on its own. No other anginal symptoms, no PND or orthopnea. No leg swelling or redness or pain. He still says his pain in his right shoulder is intractable, sharp to crampy in nature with no specific aggravating or relieving factors. No antecedent history of chills or fever. No trauma or fall. He says the pain is deep, but not superficial. Patient is currently being treated for right lower extremity cellulitis with IV antibiotics prescribed by Dr. Renzo Tan. REVIEW OF SYSTEMS: Twelve system review is negative except for chronic nonbloody diarrhea for several years related to two colon surgeries, but he did have nausea today when he felt the pain, but no vomiting. Otherwise, 12 system review is negative. Positive findings noted in HPI. PAST MEDICAL HISTORY: Includes end-stage kidney disease, atrial fibrillation, Crohn disease, hypertension, kidney stones, restless leg syndrome, peripheral arterial disease. BPH. SURGICAL HISTORY: He has had 2 colon resections, skin cancer removed from his left arm, removal of sweat glands from his rectum, left upper extremity shunt, right femoral artery repair, bilateral cataract surgery. SOCIAL HISTORY: Former smoker. No alcohol or drug use. He lives with his . FAMILY HISTORY: Notable for colon cancer in his family. No heart disease in first-degree relatives. ALLERGIES: Allergic to ciprofloxacin. MEDICATIONS: Patient recently today had his hydralazine increased from 50-[address] Kevin Green per the family. He takes 100 mg t.i.d. Isordil 40 mg t.i.d. Lopressor 25 mg daily, Protonix 40 mg daily. Prednisone 5 mg daily. Renvela 800 mg t.i.d. Sodium bicarbonate 1200 mg b.i.d., Flomax 0.4 mg at bedtime. Gabapentin 200 mg at bedtime. Diltiazem extended release 200 mg daily, vitamin D, folic acid, vitamin B12, multivitamin tablet 1 daily, Sensipar 60 mg at bedtime, aspirin 81 mg daily. LABORATORY WORK: Notable for white count 5000, hemoglobin and hematocrit 11 and 36, platelets 145,000, normal differential. Sodium 135, potassium 5.8, bicarb 18, anion gap 20, BUN 32, creatinine 7.5, glucose 117, calcium 7.9, AST 35, ALT 34, alkaline phosphatase 156. CK is 27, troponin 0.158. No significant change from his usual baseline. ProBNP is greater than 35,000. D- dimer 1.2. PT PTT, INR was 1.25, PTT 3.64. PHYSICAL EXAMINATION: VITAL SIGNS: Blood pressure initially was 80/52, now it is 90/62, heart rate 66 , respirations 20, temperature 98.2 degrees. 96% on room air. GENERAL: Chronically ill, middle-aged man who appears older than stated age. He is alert and oriented to person, place and time with normal mood and affect. He is in distress from pain in his right shoulder and is writhing in bed. HEENT: Head is normocephalic, atraumatic. Eyes MERVIN, EOMI. He is anicteric and not pale. ENT and oropharynx exam grossly normal. No central cyanosis noted. NECK: Supple. He has noticeable JVD. No areas of redness on his neck. No crepitus noted. MUSCULOSKELETAL: Tenderness is localized to the supraspinatus area of his right shoulder. No redness and no swelling overlying that area. CHEST: Clear to auscultation. Good air entry both lung campos. CARDIOVASCULAR: First and second heart sounds heard. No gallops, murmurs, rubs. Rhythm is regular. ABDOMEN: Full, soft, nontender. No masses or organomegaly. He has an old midline scar. Bowel sounds hypoactive No at this time. EXTREMITIES: Trace edema of his lower extremities. He has decreased pulses distally in his lower extremities. He has significant diminished pulses in all extremities but worse in his lower extremities. They are cool to touch, but no overt discoloration noted. No clubbing or peripheral cyanosis. NEUROLOGICAL: No focal deficits appreciated. SKIN: Patient has dusky blue skin with healing ulcerations of the right anterior santacruz. Cold to touch, but no colder on the left leg. MUSCULOSKELETAL: Grossly normal. ASSESSMENT: 1. Symptomatic bradycardia, probably medication induced. 2. Hypotension secondary to antihypertensive dose increase. 3. Peripheral arterial disease. 4. Coronary artery disease. 5. End-stage renal disease. 6. Hyperkalemia. 7. Crohn's disease. 8. Atrial fibrillation. 9. Hypertension with renal and kidney disease. PLAN: At this time we will admit patient to the ICU. Start patient on low- dose dopamine to get his heart rate up and his blood pressure up. We will hold all antihypertensives , but will check troponin later in the day to make sure that this is not slowly increasing. His right shoulder pain is somewhat unusual. It could very well be musculoskeletal versus nerve compression issue. However, there is a remote possibility this could be an atypical presentation of vascular condition, but nothing seems to be pointing in that direction. Hence, the reason why I am doing a repeat troponin later today. It also could be an electrolyte problem. His potassium is elevated as expected in a dialysis patient. It is usually higher than what is expected. I will see if correcting this, his muscular "cramp" that he is experiencing on the supraspinatus muscle improves. Consult Dr. Green and Dr. Garcia to address his rhythm disorder and his end- stage kidney disease respectively. We will continue other antibiotics he is scheduled to get during his dialysis per Dr. Tan. cc: MD Steven Jacobsen MD Peter Johnson, MD [facility]
[2017-03-01] MEDS: DOPAMINE 400 MG/D5W 400 MG/500 ML IV.SOLN IV SCH (21:43)
--- NOTE | 2017-03-01 21:49 | PROVIDER DOCUMENTATION ---
This chart was entered by Sharath Salazar Scribe, acting as scribe for Abrahan Green PA. HPI-Cardiac General - General Chief Complaint: B/P Problems Stated Complaint: BLOOD PROBLEMS Time Seen by Provider: 03/01/17 18:57 Source: patient Allergies/Adverse Reactions: Patient Allergies Allergy/AdvReac Type Severity Reaction Status Date / Time ciprofloxacin [From Cipro] Allergy Intermediate SWELLING Verified 03/01/17 20:25 Home Medications: Home Medication List Medication Instructions Recorded Confirmed Last Taken Type Cyanocobalamin/Folic Acid [Vitamin 1 each PO DAILY 05/30/15 03/01/17 03/01/17 History [id number] Acid Tablet] Gabapentin [Neurontin] 200 mg PO QHS 05/30/15 03/01/17 03/01/17 History Pantoprazole [Protonix] 40 mg PO DAILY@0700 05/30/15 03/01/17 03/01/17 History Sevelamer Carbonate [Renvela] 800 mg PO TID CC 05/30/15 03/01/17 03/01/17 History Sodium Bicarbonate 1,300 mg PO BID 05/30/15 03/01/17 03/01/17 History Tamsulosin HCl [Flomax] 0.4 mg PO QHS 05/30/15 03/01/17 03/01/17 History Cinacalcet HCl [Sensipar] 60 mg PO HS 09/14/16 03/01/17 03/01/17 History Aspirin EC 81 mg PO DAILY #0 tablet 09/20/16 03/01/17 03/01/17 Rx Hydralazine HCl 100 mg PO TID #90 tablet 01/13/17 03/01/17 03/01/17 Rx Isosorbide Dinitrate [Isordil] 40 mg PO TID #180 tablet 01/13/17 03/01/17 Rx Diltiazem HCl [Diltiazem ER] 360 mg PO DAILY 02/20/17 03/01/17 03/01/17 History Metoprolol [Lopressor] 25 mg PO BID 02/20/17 03/01/17 03/01/17 History Prednisone 5 mg PO DAILY 02/20/17 03/01/17 03/01/17 History - History of Present Illness-Cardiac Nature of Presenting Problem: Pt is a 71 yom who presents to ER with CC of hypotension and bradycardia. Pt is an end-stage renal pt who is currently being treated with abx for cellulitis in his leg by Dr. Tan/Dr. Alas. Pt receives IV abx when he attends dialysis 3 times a week. Pt reports that he received a new blood pressure rx yesterday, took it today and it caused pt to become bradycardic and hypotensive. Location: reports: central Quality of Pain: reports: none Severity in ED: severe Onset/Duration: just prior to arrival Timing: still present Palpitation Quality: slow heart rate History of arrythmia: reports: A-Fib Associated Symptoms: reports: fatigue, weakness. denies: abdominal pain, back pain, diaphoresis, dizziness, edema, fever/chills, headache, heartburn, nausea, rash, shortness of breath, swelling/lump in chest, syncope, vomiting Similar Symptoms Previously?: Yes Recently Seen Here or By Another Healthcare Provider: Yes Review of Systems - Adult - REVIEW OF SYSTEMS - ADULT Constitutional: reports: fatique. denies: chills, fever, night sweats, weight gain, weight loss Eyes: reports: no symptoms reported Ears, Nose, Mouth & Throat: reports: no symptoms reported Cardiovascular: reports: irregular heart rate. denies: chest pain, edema, heart murmur, orthopnea, palpitations, poor circulation, PND, syncope Respiratory: denies: chronic cough, cough, dyspnea on exertion, excessive sputum production, hemoptysis, pleurisy, shortness of breath, wheezing Gastrointestinal: reports: no symptoms reported Genitourinary: reports: no symptoms reported Musculoskeletal: reports: no symptoms reported Integumentary: reports: no symptoms reported Neurological: reports: no symptoms reported Psychiatric: reports: no symptoms reported Endocrine: reports: no symptoms reported Hematologic/Lymphatic: reports: no symptoms reported Allergic/Immunologic: reports: no symptoms reported All Other Systems: Reviewed and Negative Past History - Adult - PAST MEDICAL HISTORY-ADULT Review of Records: reports: Nursing Assessment Review, Medications Reviewed Cardiovascular: reports: A-Fib, HTN, PVD Gastrointestinal: reports: Crohn's Genitourinary: reports: dialysis (MWF), ESRD, other - PRIOR SURGERIES/PROCEDURES Surgical/Procedure History: reports: indwelling device (Av fistula), bowel surgery - IMMUNIZATION STATUS Childhood Immunizations: See Nurse Assessment Flu Vaccine: See Nurse Assessment - FAMILY HISTORY Family History: reviewed, not pertinent Physical Exam-General - PHYSICAL EXAM-ADULT Initial Vital Signs Reviewed: Yes - CONSTITUTIONAL General Appearance: appears well, alert, mild distress, lethargic. negative: no apparent distress - EYES Eyes: PERRL/EOMI, pink conjunctivae, fundi clear, no AV nicking - HEAD, EARS, NOSE, MOUTH & THROAT HENMT: normocephalic/atraumatic, moist mucous membranes, normal ENT inspection, TMs normal, pharynx normal - NECK Neck: non-tender, full range of motion, supple, normal inspection. negative: C- spine tenderness, limited range of motion, lymphadenopathy - RESPIRATORY Respiratory: chest non-tender, lungs clear, normal breath sounds, no pleuratic chest pain, no respiratory distress, no accessory muscle use. negative: stridor , wheezing - CARDIOVASCULAR Cardiovascular: normal peripheral pulses, bradycardia, irregularly irregular. negative: regular rate, rhythm - GASTROINTESTINAL (ABDOMEN) Abdominal Exam: normal bowel sounds, non tender, soft, no organomegaly, no pulsatile mass. negative: abnormal bowel sounds, distended, guarding, tenderness - MUSCULOSKELETAL Back Exam: normal inspection, no CVA tenderness, no vertebral tenderness. negative: CVA tenderness, decreased range of motion, ecchymosis, muscle spasm, swelling, vertebral tenderness Extremity: normal range of motion, non-tender, normal gait, normal inspection, no pedal edema, no calf tenderness, normal capillary refill. negative: deformity, erythema, inflammation, swelling, tenderness - SKIN Integumentary: normal color, normal turgor, warm/dry. 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 negative: facial droop, focal weakness, motor weakness, sensory deficit - PSYCHIATRIC Psych/Mental Status: normal thought content, normal thought process, oriented x 3, depressed affect. negative: normal mood/affect Progress - PLAN OF CARE/RESULTS Progress/Plan/Lab Results: Vital Signs - 8 hr 03/01/17 18:57 03/01/17 20:26 Temperature 97.6 F 98.2 F Pulse Rate 55 L 56 L Respiratory Rate 17 20 Blood Pressure 80/52 90/62 O2 Sat by Pulse Oximetry 99 96 Laboratory Results - last 24 hr 03/01/17 03/01/17 03/01/17 19:02 19:02 19:02 WBC 5.02 RBC 3.71 L Hgb 11.7 L Hct 36.5 L MCV 98.4 MCH 31.5 H MCHC 32.1 L RDW Std Deviation 15.9 H Plt Count 145 MPV 10.6 H Immature Gran % (Auto) 0.0 Neut % (Auto) 85.4 H Lymph % (Auto) 6.8 L Griggs % (Auto) 6.8 Eos % (Auto) 0.8 Baso % (Auto) 0.2 Immature Gran # (Auto) 0.00 Neut # (Auto) 4.29 Lymph # (Auto) 0.34 L Griggs # (Auto) 0.34 Eos # (Auto) 0.04 Baso # (Auto) 0.01 PT INR PTT (Actin FS) D-Dimer 1.21 H Sodium 135 L Potassium 5.8 H Chloride 97 L Carbon Dioxide 18 L Anion Gap 20 BUN 33 H Creatinine 7.5 H Estimated GFR/1.73 m2 7 BUN/Creatinine Ratio 4 Glucose 117 H Calculated Osmolality 278 Calcium 7.9 L Magnesium 1.6 Total Bilirubin 0.32 AST 35 H ALT 34 Alkaline Phosphatase 156 H Creatine Kinase 27 Troponin T Llh-S-Qgdfytyxrvm Pept Total Protein 6.5 Albumin 3.5 Globulin 3.0 Albumin/Globulin Ratio 1.2 03/01/17 03/01/17 03/01/17 19:02 19:02 19:02 WBC RBC Hgb Hct MCV MCH MCHC RDW Std Deviation Plt Count MPV Immature Gran % (Auto) Neut % (Auto) Lymph % (Auto) Griggs % (Auto) Eos % (Auto) Baso % (Auto) Immature Gran # (Auto) Neut # (Auto) Lymph # (Auto) Griggs # (Auto) Eos # (Auto) Baso # (Auto) PT 13.3 H INR 1.25 PTT (Actin FS) 36.4 H D-Dimer Sodium Potassium Chloride Carbon Dioxide Anion Gap BUN Creatinine Estimated GFR/1.73 m2 BUN/Creatinine Ratio Glucose Calculated Osmolality Calcium Magnesium Total Bilirubin AST ALT Alkaline Phosphatase Creatine Kinase Troponin T 0.158 H Qlm-B-Qhgfntsaxmb Pept > 95004 H Total Protein Albumin Globulin Albumin/Globulin Ratio Orders Category Date Time Status Cardiac Monitoring DIRECTED Care 03/01/17 18:58 Active Misc. NRSG Communication Order DIRECTED Care 03/01/17 20:48 Active Oxygen Therapy- ED Nursing DIRECTED Care 03/01/17 18:58 Active Saline Loc NOW Care 03/01/17 18:58 Active CHEST-PORTABLE [RAD] Stat Exams 03/01/17 18:58 Taken CBC WITH ELECTRONIC DIFF [HEME] Stat Lab 03/01/17 19:02 Completed CK PROFILE [SP CHEM] Stat Lab 03/01/17 19:02 Completed COMPREHENSIVE METABOLIC PANEL [CHEM] Stat Lab 03/01/17 19:02 Completed D-DIMER [CHEM] Stat Lab 03/01/17 19:02 Completed MAGNESIUM [CHEM] Stat Lab 03/01/17 19:02 Completed PRO B-NATRIURETIC PEPTIDE Stat Lab 03/01/17 19:02 Completed PROTIME WITH INR [COAG] Stat Lab 03/01/17 19:02 Completed PTT [COAG] Stat Lab 03/01/17 19:02 Completed TROPONIN T Stat Lab 03/01/17 19:02 Completed 0.9% Sodium Chloride Inj [Ns] 1,000 ml Med 03/01/17 19:01 Discontinued IV 999 mls/hr Dextrose 50% Syringe [D50w Syringe] Med 03/01/17 20:47 Discontinued 50 ml IV NOW ONE Dopamine 400 mg/D5w Med 03/01/17 20:30 Active 400 mg in 500 ml IV As Directed Hydrocodone/APAP 5 mg/325 mg [Wright-5] Med 03/01/17 19:54 Discontinued 1 each PO NOW ONE Hydromorphone [Dilaudid] Med 03/01/17 20:42 Discontinued 0.5 mg IM NOW ONE Hydromorphone [Dilaudid] Med 03/01/17 21:48 Once 0.5 mg IM NOW ONE Hydromorphone [Dilaudid] Med 03/01/17 20:32 Discontinued 1.5 mg IM NOW ONE Insulin Human Regular [Humulin R] Med 03/01/17 20:46 Discontinued 6 unit IV NOW ONE Ondansetron Odt [Zofran Odt] Med 03/01/17 19:54 Discontinued 4 mg PO NOW ONE EKG [EKG] Stat Ther 03/01/17 18:58 Ordered EKG [EKG] Stat Ther 03/01/17 19:06 Ordered Transfer/Admit Order [TRANSFER] Routine Transfer 03/01/17 20:38 Ordered Result Diagrams: 03/01/17 19:02 03/01/17 19:02 - CONSULTS/PCP/HOSPITALIST Notification #1 *Consult/PCP/Hospitalist*: Dr. Amezquita (Hospitalist) Time Discussed: 20:12 Consult Disposition: Admit Departure - Departure Time of Disposition Decision: 21:00 DIAGNOSIS: Bradycardia Hypotension Qualifiers: Hypotension type: unspecified hypotension type Qualified Code(s): I95.9 - Hypotension, unspecified Disposition: ADMITTED INPATIENT 09 Certified Medical Emergency: Emergent Condition: Stable Referrals and Follow-Ups: Steven Avila [Primary Care Provider] - Attestation - Physician/ MAYUR Attestation Patient care was provided by Advanced Practice Provider:: Yes Advanced Practice Provider:: Abrahan Green Advanced Practice Provider documentation review:: The Mid-level provider documentation, treatment plan and medical decision making was reviewed by the physician who agrees with all treatment and medical decision making by the MLP. This chart was documented by the indicated scribe, (Sharath Salazar Scribe) and accurately reflects the services I performed and decisions made by Peter carter Steven Wesley, PA, as attested by the provider's signature.
[2017-03-02] MEDS: DOPAMINE 400 MG/D5W 400 MG/500 ML IV.SOLN IV SCH ×2 (00:10→02:56)
[2017-03-02] MEDS ORDERED: DILAUDID IM PRN (01:54)
[2017-03-02] MEDS: HEPARIN SUBQ SCH ×3 (01:54→21:47)
[2017-03-02] MEDS ORDERED: ZOFRAN IV PRN (01:54)
[2017-03-02] MEDS: FLOMAX PO SCH ×2 (01:54→21:47)
[2017-03-02] MEDS ORDERED: TYLENOL PO PRN (01:54)
[2017-03-02] MEDS ORDERED: PERCOCET-5 PO PRN (01:54)
[2017-03-02] MEDS: SENSIPAR PO SCH ×2 (02:55→21:48)
[2017-03-02] MEDS: SODIUM BICARBONATE PO SCH ×3 (02:55→21:48)
[2017-03-02] MEDS: NEURONTIN PO SCH ×2 (03:40→21:47)
[2017-03-02 05:02] LABS: MANUAL DIFF NEEDED? NO
[2017-03-02 05:03] LABS: BASO% 0.2 % (0.0-0.8); EOS# 0.02 X1000 (0.0-0.7); EOS% 0.3 % (0.0-10.0); HEMATOCRIT 35.8 % (42.0-52.0); HEMOGLOBIN 11.4 g/dL (14.0-18.0); IMM GRAN# 0.03 X1000 (0.0-0.04); IMM GRAN% 0.5 % (0.0-0.5); LYMPH# 0.39 X1000 (1.2-3.4); LYMPH% 6.3 % (20.5-51.1); MCHC 31.8 g/dL (33-37); MCV 97.3 FL (81-99); MONO# 0.69 X1000 (0.11-0.59); MONO% 11.1 % (1.7-9.3); MPV 10.2 FL (7.4-10.4); NEUT% 81.6 % (42.2-75.2); PLT 121 X1000 (130-400); RBC 3.68 XMIL (4.7-6.1)
[2017-03-02 05:24] LABS: CALCIUM 7.8 mg/dL (8.8-10.2); MAGNESIUM 1.6 mg/dL (1.5-2.7); POTASSIUM 5.6 mmol/L (3.5-5.1)
--- NOTE | 2017-03-02 05:24 | EKG Report ---
Test Performed on : 03/01/2017 7:08:51 PM Test Reason : low BP Blood Pressure : / mmHG Vent. Rate : 058 BPM Atrial Rate : 085 BPM P-R Int : 000 ms QRS Dur : 114 ms QT Int : 454 ms P-R-T Axes : 000 -18 075 degrees QTc Int : 445 ms Atrial fibrillation. with slow ventricular response. Minimal voltage criteria for LVH, may be normal variant Abnormal ECG When compared with ECG of 25-FEB-2017 09:55, Vent. rate has decreased BY 69 BPM T wave inversion no longer evident in Lateral leads Unconfirmed Result
[2017-03-02] MEDS ORDERED: HEPARIN IV PRN (07:07)
[2017-03-02] MEDS ORDERED: TIGHT: 0.2 ML/HR MISC PRN (07:07)
[2017-03-02] MEDS ORDERED: NS 2,000 ML MISC PRN (07:07)
--- NOTE | 2017-03-02 08:08 | Diag Imaging Result Document ---
PROCEDURE NAME: CHEST-PORTABLE - 03/01/2017 AP PORTABLE CHEST: COMPARISON: 02/25/2017. FINDINGS: There is a small left pleural effusion with basilar atelectasis and an infiltrate. The appearance is similar to the prior exam. The right lung remains clear. The heart is borderline mildly prominent. The vessels are not distended. IMPRESSION: No interval improvement.
[2017-03-02] MEDS: PREDNISONE PO SCH (09:54)
[2017-03-02] MEDS: PRILOSEC PO SCH (09:54)
[2017-03-02] MEDS: ASPIRIN EC PO SCH (09:54)
[2017-03-02] MEDS: FOLTX PO SCH (09:54)
[2017-03-02] MEDS: RENAGEL PO SCH ×3 (09:55→17:35)
--- NOTE | 2017-03-02 10:37 | CONSULTATION ---
DATE OF CONSULTATION: 03/02/2017 INDICATION: Hypotension. HISTORY OF PRESENT ILLNESS: Mr. Byrne is a 71-year-old white male with end-stage renal disease and atrial fibrillation. He presented to my office earlier this week with elevated heart rate and relative hypotension. He is a dialysis patient. At that visit we decreased the level of his nitrate and we made a slight dose increase in his metoprolol from 25-50. We did not make any adjustments in his hydralazine, and we decreased his Isordil from t.i.d. to b.i.d. Written instructions were provided to the patient, as well as with new prescriptions. Apparently the patient did not make any adjustment in his Isordil, increased his hydralazine and made no adjustment in his Lopressor. He has felt very weak, very lightheaded over the last 24-48 hours, and apparently had some nausea today. He came in with a heart rate that was 58 beats per minute and consistent with atrial fibrillation. His systolic blood pressure on presentation was 80/52. That since has come up to 112/84. PAST MEDICAL HISTORY: 1. End-stage renal disease. 2. Chronic atrial fibrillation. 3. Crohn disease. 4. Hypertension. 5. Restless leg. 6. Prefer arterial disease. 7. Benign prostatic hyperplasia. SOCIAL HISTORY: He is a previous smoker, not currently. No alcohol or illicit drug use. He is . FAMILY HISTORY: Significant for colon cancer. No heart disease in his first-degree relatives. REVIEW OF SYSTEMS: A 10 system review of systems is negative, except for those mentioned in the HPI. PHYSICAL EXAMINATION: Vital Signs: He is afebrile. His heart rate is 96. His blood pressure is 112/84. General: He is in no acute distress. HEENT: Oropharynx is moist. Normal dentition. Eye examination shows pink conjunctivae, white sclerae. Neck: Examination shows no obvious thyromegaly or thyroid tenderness. Cardiovascular: He sounds to be in an irregularly irregular rhythm. This is consistent with atrial fibrillation. He has no lower extremity edema. Chest: Exam is clear bilaterally. He has no increased work of breathing. Abdomen: Soft, nontender, nondistended. He has no obvious organomegaly. Skin exam: Notable for some mild healing lacerations to his distal upper and lower extremities, otherwise no abnormalities. Neurological: He is moving all extremities well. Cranial nerves 2-12 are intact without any sensation deficits. Psychiatric: He is alert, oriented, pleasant. He has normal mood and affect. PERTINENT DATA: His EKG demonstrates atrial fibrillation with a rate of 58 beats per minute. His chest x-ray demonstrated small left pleural effusion with basilar atelectasis and suggestion of an infiltrate that did not look any different from previous exam on the sixteenth. Laboratory data showed a white count of 6.2, hematocrit 35.8, platelet count 121. Sodium 136, potassium 5.6, BUN 38, creatinine 1.1. Magnesium level is 1.6. His cardiac enzymes are elevated at 0.158 initially and 0.140. ProBNP is greater than 35,000. ASSESSMENT: 1. Hypotension. 2. End-stage renal disease. 3. Rate-controlled atrial fibrillation. PLAN: Patient had some confusion despite written instructions being given regarding his medications. He had no adjustment in his hydralazine at our clinic visit. He had a decrease in his Isordil from t.i.d. to b.i.d., and he had a slight increase in his metoprolol from 25-50. This was done for elevated heart rate at the time of the office visit. The patient apparently increased his hydralazine from 50-100, had made no change in his Isordil and kept taking it t.i.d., and also did not adjust his metoprolol. This is likely the etiology of his hypotension. Presently, I would just withhold his blood pressure medications and, when his blood pressure rises, we can reinstitute some in the future. His elevated troponin is occurring in the setting of no EKG changes and no ischemic symptoms. This is likely secondary to poor perfusion in the setting of hypotension. His levels are relatively flat. I would just continue monitoring at this point. He is already on an aspirin. cc: Kevin Green MD
[2017-03-02] MEDS ORDERED: NS 2,000 ML ONE (11:47)
[2017-03-02] MEDS ORDERED: HEPARIN ONE (11:47)
--- NOTE | 2017-03-02 14:42 | PROGRESS NOTE ---
DATE: 03/02/2017 SUBJECTIVE: The patient is resting comfortably. He has no complaints at this time. He is currently on a dopamine drip. OBJECTIVE: Vital Signs: Temperature 98.7 degrees, blood pressure 108/89, heart rate 103 respiration is 17, O2 saturations 97% on room air. General: This is an elderly male, lying comfortably in bed, in no acute distress. Head: Normocephalic, atraumatic. Heart: S1, S2. Normal. Tachycardic. Lungs: Clear to auscultation bilaterally. Equal air entry bilaterally. Abdomen: Positive bowel sounds. Soft, nontender, nondistended. Extremities: The patient has skin ulcerations on his right lower extremity with some mild surrounding erythema. Neurologic: The patient is alert and oriented x3. LABS: White blood cell count 6.2, hemoglobin 11, hematocrit 35, platelets 121, 000. Sodium 136, potassium 5.6, chloride 98, CO2 19, BUN 38, creatinine 8.1, glucose 79, magnesium 1.6. ASSESSMENT AND PLAN: 1. Hypotension. We will monitor the patient's blood pressure closely. Will attempt to wean the patient off of the dopamine. Cardiology is following. 2. End-stage renal disease. The patient is scheduled for dialysis today. 3. Right lower extremity skin ulcerations. We will consult Wound Care. We will start the patient on vancomycin after each dialysis. Will also consult with ID. 4. Atrial fibrillation. Aware. 5. History of Crohn disease. Aware. 6. Peripheral arterial disease. Aware. 7. Benign prostatic hypertrophy. Continue on Flomax. 8. Deep vein thrombosis prophylaxis. Continue on heparin 5000 units subcutaneous every 12 hours. cc: Marleen Brown MD MTDD
[2017-03-02] MEDS ORDERED: VANCOMYCIN 1 GM/NS 1 GM/250 ML IVPB IV SCH (15:00)
--- NOTE | 2017-03-02 15:39 | CONSULTATION ---
DATE OF CONSULTATION: 03/02/2017 REASON FOR ADMISSION: Profound hypotension, bradycardia, chest pain. CONSULTING PHYSICIAN: Marleen Brown MD. REASON FOR CONSULTATION: End-stage renal disease. HISTORY OF PRESENT ILLNESS: This is a 71-year-old gentleman well known to our service for end- stage renal disease on hemodialysis on a Sunday, Sunday, Sunday schedule. He is quite compliant with his dialysis. He was last seen last week during dialysis. The patient presented to the emergency room with complaint of generalized weakness and substernal chest pain along with significant hypotension. He had been seen by Cardiology earlier this week and had some changes in medication. The patient developed some shoulder pain and left arm pain. He came to the emergency room and was found to have a systolic blood pressure in the 60s to 70s. He was started on pressor support and admitted to the hospital for further workup and treatment. This morning he has been able to eat. He has had no nausea or vomiting. He continues to have shoulder pain and hypotension, and is still requiring pressor support. Today is his routine dialysis day. PAST MEDICAL HISTORY: End-stage renal disease with hemodialysis Sunday, Sunday, Sunday. Atrial fibrillation. Thrombocytopenia. Hypertension. Chronic peripheral vascular disease. Pulmonary hypertension. CHF. Diastolic dysfunction. Right leg DVT. BPH. Peripheral neuropathy. GERD. Hyperphosphatemia. Hypercalcemia. He also has lower extremity leg wounds being treated and managed with antibiotics and surgery consultation. PAST SURGICAL HISTORY: Left upper extremity fistula. Colon resection. Cataract surgery. ALLERGIES: Ciprofloxacin. HOME MEDICATIONS: Hydralazine, Isordil, Lopressor, Protonix, prednisone, Renvela, sodium bicarbonate, Flomax, gabapentin, diltiazem, vitamin D, folic acid, B12, multivitamin, Sensipar, aspirin. FAMILY HISTORY: Cancer. SOCIAL HISTORY: Previous smoker. No ETOH or illicit drug use. He is . REVIEW OF SYSTEMS: Nausea. Shoulder pain. Mild chest pain. PHYSICAL EXAMINATION: Vital Signs: Afebrile, pulse 96, respiratory rate 18, blood pressure 112/84. Intake 360 mL. Output has not been measured. General: This is an elderly gentleman resting in bed. He is in no acute distress. He is awake and alert, and able to give an appropriate history. HEENT: Normocephalic, atraumatic. MERVIN, oral mucosa moist. Neck: Supple. No JVD. Cardiovascular: Regular rate and rhythm. Controlled rate. Pulmonary : Equal excursion. Clear bilaterally. There is no wheeze or rhonchi noted. Abdomen: Flat, soft with positive bowel sounds. Genitourinary: Not inspected. Extremities: He continues with vascular changes to bilateral lower extremities and some areas to the right lower extremity from previous debridement. No pretibial edema. He is moving all extremities. He has some pain but no crepitation noted to the right upper extremity. Integumentary: Skin is warm and dry otherwise. Neurologic: Grossly nonfocal. LAB DATA: WBC of 6.2, hemoglobin 11.4, sodium 136, potassium 5.6, CO2 19, BUN 38, creatinine 8.1, calcium 7.8, albumin 3.5. ASSESSMENT AND PLAN: 1. End-stage renal disease management. Today is his routine dialysis day. Plan to dialyze with a 2 K bath/UF to dry weight/four hour treatment. Continue his routine dialysis while in the hospital. 2. Electrolytes, acceptable. Treat on dialysis. 3. Acid base, overtly acidotic. 4. Symptomatic bradycardia and hypotension. Howe medication induced. He is currently on pressor support and will be admitted to the Intensive Care Unit. We will plan to dialyze him over there secondary to this. Seen, data reviewed, discussed with Sera Saavedra on 03/02/17. I agree with the above assessment and plan of care. rg Dictated by MELVA Hernandez for Adria Garcia MD cc: Adria Garcia MD [facility]
[2017-03-02] MEDS ORDERED: TAZIDIME 1 GM in NS 50 ML IV SCH (19:00)
--- NOTE | 2017-03-02 19:33 | PROGRESS NOTE ---
DATE: 03/02/2017 PRESENT ILLNESS: The patient was readmitted to the hospital because of profound hypotension, bradycardia and chest pain. The patient told me that his medications had recently been changed and he thought that was the cause of the hypotension. I have been seeing the patient for cellulitis of the right leg. He also has in the left lower lobe a small infiltrate with effusion that has been stable. This could be a pneumonia. MEDICATIONS: The patient is getting vancomycin 1 g and ceftazidime 1 g each given after each dialysis. PHYSICAL EXAMINATION: Vital Signs: Temperature is 98.1 degrees, pulse 123, respirations 15, blood pressure 148/88. General: This is an elderly male who looks chronically ill. Lungs: Clear to auscultation. Cardiovascular: Irregular heart rate. Patient does have a history of atrial fibrillation. Extremities: The right leg still is erythematous and it has some eschars on it but overall it is better than it was a few weeks ago. Also, it is not as swollen. LAB AND X-RAY: 1. Chest x-ray shows left lower lobe infiltrate and effusion. 2. CBC shows a white count of 6230, hemoglobin 11.4, and platelet count 121,000. Creatinine is 8.1. GFR is 7. ASSESSMENT AND PLAN: I plan to continue vancomycin and ceftazidime as mentioned above for his leg cellulitis and pneumonia. COMORBIDITIES: End-stage renal disease, hemodialysis, diffuse atherosclerosis in his legs which cannot be revascularized and thus severely limits the blood supply in his legs. Patient also is elderly. cc: Renzo Tan MD
[2017-03-03 06:17] LABS: HEMATOCRIT 33.5 % (42.0-52.0); HEMOGLOBIN 10.7 g/dL (14.0-18.0); MCH 31.1 PG (27-31); MCHC 31.9 g/dL (33-37); MCV 97.4 FL (81-99); MPV 10.6 FL (7.4-10.4); RBC 3.44 XMIL (4.7-6.1)
[2017-03-03] MEDS: PRILOSEC PO SCH (06:41)
[2017-03-03 07:08] LABS: ALBUMIN 2.9 g/dL (3.5-5.0); CALCIUM 7.2 mg/dL (8.8-10.2); POTASSIUM 4.4 mmol/L (3.5-5.1)
[2017-03-03] MEDS: RENAGEL PO SCH ×3 (08:13→16:27)
[2017-03-03] MEDS: SODIUM BICARBONATE PO SCH ×2 (08:13→22:45)
[2017-03-03] MEDS: PREDNISONE PO SCH (08:13)
[2017-03-03] MEDS: FOLTX PO SCH (08:13)
[2017-03-03] MEDS: ASPIRIN EC PO SCH (08:13)
[2017-03-03] MEDS: HEPARIN SUBQ SCH (08:14)
--- NOTE | 2017-03-03 11:18 | PROGRESS NOTE ---
DATE: 03/03/2017 SUBJECTIVE: Patient continues without chest discomfort or dyspnea on room air. OBJECTIVE: Vital signs: Blood pressure 127/91, heart rate 119 and irregular with ECG monitor showing atrial fibrillation and rapid ventricular rate. Oxygen saturation 94% on room air. There is no significant jugular venous distention. Chest: Clear to auscultation. Cardiac exam: Reveals an irregular rate and rhythm without appreciable murmur or gallop. There is no evidence of peripheral edema. IMPRESSION: 1. Recent hypotension probably medication related. Blood pressure improved to atrial fibrillation with rapid ventricular rate. 2. Mild cardiomyopathy with left ejection fraction 40-45% by echocardiography a few months ago. 3. End-stage renal disease requiring chronic hemodialysis. 4. Left lower lobe infiltrate suspected of being pneumonia. RECOMMENDATIONS: 1. Agree with plans to transfer to telemetry. 2. Initiate metoprolol for rate control. The patient currently on aspirin daily. Future consideration to be given to possibly using long-term anticoagulation. Will defer this to patient's primary benefits administrator Dr. Green. cc: Gregg Calles MD
[2017-03-03] MEDS: LOPRESSOR PO SCH ×2 (12:33→22:46)
--- NOTE | 2017-03-03 13:04 | PROGRESS NOTE ---
DATE: 03/03/2017 SUBJECTIVE: The patient is resting comfortably in bed. He was able to get up to the bedside commode without any difficulty. He is off of the dopamine drip. He has no complaints this morning. OBJECTIVE: Vital Signs: Temperature 98.6 degrees, blood pressure 100/74, heart rate 121, respirations 22, O2 saturation 94% on room air. General: This is an elderly male, lying comfortably in bed in no acute distress. HEENT: Head normocephalic, atraumatic. Heart: S1 and S2 normal. Regular rate and rhythm. Lungs: Clear to auscultation bilaterally. No wheezing. No rales. No rhonchi. Abdomen: Positive bowel sounds. Soft, nontender, nondistended. Extremities: No edema. No cyanosis. No calf tenderness. Neurologic: The patient is alert and oriented x3. LABORATORIES: White blood cell count 3.3, hemoglobin 10, hematocrit 33, platelets 105,000. Sodium 142, potassium 4.4, chloride 101, CO2 of 21, BUN 26, creatinine 6.4, glucose 70, calcium 7.2, phosphorus 6.2. ASSESSMENT AND PLAN: 1. Hypotension. Improved. The patient is no longer requiring dopamine. He has been started on metoprolol by the corporate administrative assistant. We will continue to monitor the patient closely. 2. Right lower extremity ulceration with cellulitis. Continue on the current IV antibiotic regimen as directed by Dr. Tan. 3. Pneumonia. Continue on IV antibiotic therapy plus bronchodilator therapy. 4. End-stage renal disease. Management as per the hand zipper trimmer. 5. Peripheral arterial disease. Aware. 6. Benign prostatic hypertrophy. Continue on Flomax. 7. Thrombocytopenia. Will discontinue the heparin and monitor the patient's platelet count closely. 8. The patient is stable for transfer to the medical floor. We will also consult Physical Therapy. cc: Marleen Brown MD MTDD
--- NOTE | 2017-03-03 14:07 | PROGRESS NOTE ---
DATE: 03/03/2017 SUBJECTIVE: Patient is sitting up in bed. He is awake and alert. He states he feels much better. His hypotension and bradycardia have resolved. OBJECTIVE: Vital Signs: Temperature 98.4 degrees, pulse 114, respiratory rate 16, blood pressure 127/91. Intake 1.1 L. Output 3 L. PHYSICAL EXAMINATION: General: Elderly gentleman resting in bed. Awake, alert , in no acute distress. HEENT: Normocephalic, atraumatic. Oral mucosa moist. Neck: Supple. No JVD. Cardiovascular: He is mildly tachycardic noted on the monitor. Pulmonary: Equal excursion. He is clear bilaterally. He is on O2 supplementation via nasal cannula. Abdomen: Soft, positive bowel sounds. : Not inspected. Extremities: Vascular changes with previous debridement and wounds to lower extremities. No drainage. Moving all extremities. Integumentary: Skin is warm and dry. LAB DATA: WBC of 3.3, hemoglobin 10.7, sodium 142, potassium 4.4, CO2 26, BUN 26, creatinine 6.4, albumin 2.9, calcium 7.2, phosphorus 6.4. ASSESSMENT AND PLAN: 1. End-stage renal disease management. Patient underwent routine dialysis yesterday. He tolerated this well. Plan to continue his Sunday, Sunday, Sunday schedule while he is in the hospital. 2. Electrolytes, acid-base balance, anemia. These are all stable. 3. Bradycardia and hypotension. Medications had been changed by Cardiology previously and it appears the patient had not followed instructions at home regarding his changes. Before he leaves the hospital they plan to reinitiate medications. Dictated by MELVA Hernandez for Adria Garcia MD Data reviewed, discussed with Felipa on 03/03/17. I agree with the above assessment and plan of care. cc: Adria Garcia MD [facility]
[2017-03-03] MEDS: NEURONTIN PO SCH (22:45)
[2017-03-03] MEDS: SENSIPAR PO SCH (22:45)
[2017-03-03] MEDS: FLOMAX PO SCH (22:46)
[2017-03-04] MEDS: PRILOSEC PO SCH (06:08)
[2017-03-04 07:20] LABS: CALCIUM 7.1 mg/dL (8.8-10.2)
[2017-03-04 07:23] LABS: MCHC 31.4 g/dL (33-37); MCV 98.6 FL (81-99); RBC 3.55 XMIL (4.7-6.1)
[2017-03-04 07:26] LABS: ALBUMIN 2.8 g/dL (3.5-5.0); POTASSIUM 4.7 mmol/L (3.5-5.1)
[2017-03-04] MEDS: RENAGEL PO SCH ×3 (08:14→16:29)
[2017-03-04] MEDS: LOPRESSOR PO SCH ×2 (08:14→21:12)
[2017-03-04] MEDS: FOLTX PO SCH (08:14)
[2017-03-04] MEDS: SODIUM BICARBONATE PO SCH ×2 (08:14→21:11)
[2017-03-04] MEDS: PREDNISONE PO SCH (08:15)
[2017-03-04] MEDS: ASPIRIN EC PO SCH (08:15)
--- NOTE | 2017-03-04 14:07 | PROGRESS NOTE ---
DATE: 03/04/2017 SUBJECTIVE: The patient is sitting up in bed. He has no complaints at this time. No acute events noted overnight. OBJECTIVE: Vital Signs: Temperature 98 degrees, blood pressure 114/80, heart rate 74, respirations 18, O2 saturations 97% on room air. General: This is a elderly male sitting up in bed in no acute distress. Head: Normocephalic, atraumatic. Heart: S1, S2. Normal. Regular rate and rhythm. Lungs: Clear to auscultation bilaterally. No wheezes, no rales. No rhonchi. Abdomen: Positive bowel sounds. Soft, nontender, nondistended. Extremities: No edema. No cyanosis. No calf tenderness. There is a healing ulceration on the patient's right lower extremity with surrounding cellulitis. Neurologic: The patient is alert and oriented x3. LABS: White blood cell count 4, hemoglobin 11, hematocrit 35, platelets 96,000. Sodium 136, potassium 4.7, chloride 98, CO2 21, BUN 38, creatinine 8, glucose 90. ASSESSMENT AND PLAN: 1. Hypotension. Resolved. The patient is currently on Lopressor and tolerating it without any difficulty. 2. Under extremity ulceration with cellulitis. Continue on IV antibiotics after each dialysis session. 3. Left lower lobe infiltrate. The patient is currently receiving antibiotics. Order the PA and lateral chest x-ray to be done tomorrow. 4. Thrombocytopenia. The patient has had heparin exposure during the hospital stay. Will check a HIT antibody. 5. Peripheral artery disease. Aware. 6. End-stage renal disease. Management as per the mold closer helper. 7. Benign prostatic hypertrophy. Continue on Flomax. 8. Continue with physical therapy. 9. Disposition. The patient should be stable for discharge once cleared by the senior boiler operator and Dr. Tan. cc: Marleen Brown MD
[2017-03-04] MEDS: SENSIPAR PO SCH (21:11)
[2017-03-04] MEDS: NEURONTIN PO SCH (21:11)
[2017-03-04] MEDS: FLOMAX PO SCH (21:11)
[2017-03-05] MEDS: PRILOSEC PO SCH (06:30)
[2017-03-05 07:21] LABS: HEMATOCRIT 34.7 % (42.0-52.0); HEMOGLOBIN 11.1 g/dL (14.0-18.0); MCH 31.4 PG (27-31); MPV 11.2 FL (7.4-10.4); RBC 3.54 XMIL (4.7-6.1)
[2017-03-05] MEDS ORDERED: HEPARIN IV PRN (08:07)
[2017-03-05] MEDS ORDERED: NS 2,000 ML MISC PRN (08:07)
[2017-03-05] MEDS ORDERED: TIGHT: 0.2 ML/HR MISC PRN (08:07)
[2017-03-05 08:28] LABS: ALBUMIN 2.9 g/dL (3.5-5.0)
[2017-03-05 08:33] LABS: CALCIUM 6.9 mg/dL (8.8-10.2)
--- NOTE | 2017-03-05 08:38 | PROGRESS NOTE ---
DATE: 03/05/2017 SUBJECTIVE: Patient was readmitted to the hospital with hypotension, bradycardia and chest pain. All this has gotten a lot better. I have been treating the patient for a left lower lobe pneumonia and a right leg cellulitis. MEDICATIONS: The patient gets vancomycin 1g and ceftazidime 1g after each dialysis. PHYSICAL EXAMINATION: Vital Signs: Temperature is 97.9, pulse 64, respirations 16, blood pressure 117/83. General: This is a somewhat ill-appearing, elderly male. He is in no acute distress. Extremities: Patient has an AV fistula in his left arm, which appears to be working well. The patient's right leg is no longer cellulitic. It appears to have cleared. Lungs: Clear to auscultation. Cardiovascular: Regular heart rate. Abdomen: Soft and nontender. LAB AND X-RAY STUDIES: An x-ray for today has been ordered but the results are not yet back. ASSESSMENT AND PLAN: I plan to continue with the patient's antibiotics pending the chest x-ray results. If the infiltrate has cleared, then I think we can probably stop his antibiotics because his leg looks good. If there are still some infiltrates there, then I would keep the antibiotics that he gets after each dialysis for another 1-2 weeks and then repeat the chest x-ray again. COMORBIDITIES: Include end-stage renal disease, hemodialysis, diffuse atherosclerosis in his legs and unfortunately the blockages are such that they cannot be revascularized to improve his blood supply much. Patient also is elderly. cc: Renzo Tan MD
[2017-03-05] MEDS: RENAGEL PO SCH ×5 (08:59→17:07)
[2017-03-05] MEDS: LOPRESSOR PO SCH (09:06)
[2017-03-05] MEDS: PREDNISONE PO SCH (09:06)
[2017-03-05] MEDS: SODIUM BICARBONATE PO SCH (09:06)
[2017-03-05] MEDS: ASPIRIN EC PO SCH (09:07)
[2017-03-05] MEDS: FOLTX PO SCH (09:07)
--- NOTE | 2017-03-05 10:14 | PROGRESS NOTE ---
DATE: 03/05/2017 SUBJECTIVE: The patient is sitting up in a chair. He is feeling much better today. He is hoping to go home soon. OBJECTIVE: Vital Signs: Temperature 97.9 degrees, pulse 64, respiratory rate 10, blood pressure 117/83. Intake 1.3 L. Output none. PHYSICAL EXAMINATION: General: Elderly gentleman, sitting up in a chair, in no acute distress. Awake, alert, and oriented x4. HEENT: Normocephalic, atraumatic. Oral mucosa moist. Neck: Supple. No jugular venous distention. Cardiovascular: Regular rate and rhythm. No murmur or gallop. Pulmonary: He has equal excursion. He is clear bilaterally. Abdomen : Soft, with positive bowel sounds. Genitourinary: Not inspected. He has minimal void on hemodialysis assist. Extremities: He has vascular changes in some old wounds that are healing to the lower extremities, but no clubbing, cyanosis, or edema. Integumentary: Skin is warm and dry otherwise. LAB DATA: WBC of 4.6, hemoglobin 11.1. Sodium 139, potassium 5.0, CO2 16, BUN 45, creatinine 9.6. ASSESSMENT AND PLAN: 1. End-stage renal disease management. Today is his routine dialysis day. We will plan to dialyze him on a 2 K bath/ultrafiltration to dry weight/four hour treatment. Continue this routine while he is in the hospital; otherwise, continue dialysis as an outpatient. 2. Electrolytes, acid-base balance. Adjust with appropriate bath on dialysis today. 3. Bradycardia and hypotension. Appears resolved after discontinuation of diltiazem. Followed by primary and Cardiology. Seen, data reviewed, discussed with Sera Saavedra on 03/05/17. I agree with the above assessment and plan of care. rg Dictated by MELVA Hernandez for Adria Garcia MD cc: Adria Garcia MD [facility]
[2017-03-05 11:55] VITALS: BP 116/76
--- NOTE | 2017-03-05 11:58 | Diag Imaging Result Document ---
PROCEDURE NAME: CHEST-2 VIEWS - 03/05/2017 PA AND LATERAL RADIOGRAPH OF THE CHEST: COMPARISON: 03/01/2017. FINDINGS: Given differences in inspiration and positioning, the small left pleural effusion is approximately stable. The associated adjacent atelectasis and/or infiltrate may be slightly improved. No new consolidations are identified. Cardiac silhouette is stable. IMPRESSION: Approximately stable small left pleural effusion with adjacent atelectasis and/or infiltrate that may have improved slightly.
[2017-03-05] MEDS ORDERED: NS 2,000 ML ONE (12:18)
[2017-03-05] MEDS ORDERED: HEPARIN ONE (12:18)
--- NOTE | 2017-03-05 14:36 | PROGRESS NOTE ---
DATE: 03/05/2017 SUBJECTIVE: Mr. Colbert reports she has been doing well today. He has no complaints. He is tolerating oral intake. PHYSICAL EXAM: Vital signs: He is afebrile. Heart rate 103, blood pressure 116/76. General: He is in no acute distress. Cardiovascular: He is in an irregularly irregular rhythm. He has no murmurs. He has no S3. He has no lower extremity edema. Chest: Clear bilaterally. No increased work of breathing. Abdomen: Soft, nontender. PERTINENT DATA: White count 4.6, hematocrit 34.7, platelet count 103,000. Sodium 139, potassium 5, BUN 45, creatinine 0.6. ASSESSMENT: 1. Chronic atrial fibrillation. 2. Hypotension. PLAN: Patient is stable on current medication regimen. I am unclear of the exact reason why he became so hypotensive with minimal adjustments of his blood pressure medications. It is clear that he was not taking the prescribed medications as directed after clinic visit last week. For now, we will continue him on the current medications including the metoprolol. He is not on anticoagulation due to issues with bleeding in the past as well as Crohn disease that seems somewhat difficult to control. From cardiovascular standpoint he may be discharged when safe from a primary team standpoint. cc: Kevin Green MD
--- NOTE | 2017-03-05 16:04 | PROGRESS NOTE ---
DATE: 03/05/2017 ADDENDUM: The plan now is for the patient to go home and to get after each dialysis vancomycin 1 g and ceftazidime 1 g for 2 weeks and then I am requesting that the patient see me in the office at 2 weeks at which time will examine him and then get another chest x-ray. cc: Renzo Tan MD
--- NOTE | 2017-03-06 14:14 | DISCHARGE SUMMARY ---
ADMISSION DATE: 03/01/2017 DISCHARGE DATE: 03/05/2017 CONSULTATIONS: 1. Dr. Kevin Green with cardiology. 2. Dr. Garcia with nephrology. PERTINENT PROCEDURES: Initial chest x-ray showed a small left pleural effusion with bibasilar atelectasis and an infiltrate. No interval improvement from prior. Follow up chest x-ray showed a stable small left pleural effusion with adjacent atelectasis and nor infiltrate that may have improved slightly. DISCHARGE DIAGNOSES: 1. Hypotension, resolved. Believed to be secondary to not taking prescribed medications as directed after [facility]. 2. Patient will continue on metoprolol with adjustments made after he follows up again with cardiology. 3. Lower extremity ulceration with cellulitis. Continue with IV antibiotics, ceftazidime 1 g as well as vancomycin 1 g for 2 weeks after hemodialysis and then will follow up with Dr. Renzo Tan in his office. 4. Left lower lobe infiltrate. Again, patient will continue with IV antibiotics of ceftazidime as well as vancomycin for 2 weeks after hemodialysis and follow up with Dr. Renzo Tan. 5. Thrombocytopenia. HIT antibody was sent off. No active signs of bleeding. The patient had been taken off of any anticoagulation before secondary to Crohn disease. 6. Peripheral artery disease. Aware. 7. End-stage renal disease. Continue with his regular scheduled hemodialysis. 8. Benign prostatic hypertrophy. Continue Flomax. HOSPITAL COURSE: Mr. Byrne is a 71-year-old male who presented to the ED with complaints of generalized weakness and vague substernal chest pain with no shortness of breath or palpitations. He took his blood pressure at home. His systolic was 67-70. His heart rate was in the 40s and 50s. He decided to come to the ED. On the way to the ED he developed severe right shoulder pain which was localized, nonradiating. His chest pain subsided on its own. There were no other anginal symptoms. Patient was currently being treated for a right lower extremity cellulitis with IV antibiotics that was prescribed by Dr. Renzo Tan. The patient was admitted for symptomatic bradycardia as well as hypotension. He was admitted to the ICU. He was started on low-dose dopamine to increase of heart rate, as well as blood pressure. His antihypertensives were held and he was continued on his regular scheduled hemodialysis throughout his hospital stay. After Dr. Kevin Green, his roller inspector, spoke with him the patient had some confusion despite written instructions being given regarding his medications. He had no adjustment to his hydralazine at a clinical visit. He had a decrease in his Isordil t.i.d. to b.i.d. and a slight increase of his metoprolol from 25 to 50. This was done for an elevated heart rate at the time of his office visit. The patient apparently increased his hydralazine from 50 to 100 and made no change on Isordil and kept taking it t.i.d. and did not adjust his metoprolol. The patient did have elevated troponins but there were no EKG changes and no ischemic symptoms of likely secondary to poor perfusion in the setting of hypotension. Patient is on aspirin. He cannot be on anticoagulation secondary to Crohn disease. The patient was able to come off his dopamine drip. He was re-initiated back on his metoprolol. Per cardiology will continue him on his current medications that do include the metoprolol. The patient did undergo his regular scheduled hemodialysis today. Dr. Tan did a repeat chest x-ray. It did show some infiltrate that had slightly improved and due to the patient's pneumonia as well as cellulitis, he would like for the patient to stay on 2 more weeks ceftazidime as well as vancomycin after his hemodialysis. This has been set up with Dr. Garcia. He will follow up with Dr. Renzo Tan in 2 weeks as well as following up with Dr. Green, his roller inspector. VITAL SIGNS: At time of his discharge, temperature is 97.3 degrees, heart rate 103, respirations 16, blood pressure 116/76, O2 97% on room air. DISCHARGE DIET: Renal. DISCHARGE MEDICATIONS: 1. Aspirin 81 mg p.o. daily. 2. Ceftazidime 1 g IV for the next 2 weeks after hemodialysis. 3. Vancomycin 1 g IV after hemodialysis for 2 weeks. 4. Sensipar 60 mg p.o. at bedtime. 5. Vitamin B12 folic acid tablet 1 each p.o. daily. 6. Neurontin 200 mg p.o. at bedtime. 7. Lopressor 25 mg p.o. b.i.d. 8. Protonix 40 mg p.o. daily. 9. Prednisone 5 mg p.o. daily. 10. Renvela 800 mg p.o. t.i.d. 11. Sodium bicarb 1300 mg p.o. b.i.d. 12. Flomax 0.4 mg p.o. at bedtime. FOLLOWUP: Patient is being discharged home where he will continue with his regularly scheduled hemodialysis where he will continue to receive IV antibiotics for 2 weeks. He will need to follow up with his primary care physician, Steven Avila MD, in 7-10 days, as well as Dr. Renzo Tan in 2 weeks, as well as Dr. Kevin Green. Patient can return to the ED for any worsening of symptoms. DISCHARGE TIME: Greater than 30 minutes. Dictated by MELVA Ferreira for Brennan Han MD cc: Brennan Han MD
== END 2017-03-05 19:38 | disposition home or self-care (01) ==
LOC: ED 18:51 → EDIPHOLD 23:18 → SUATTDRO 23:18 → ICU 03-02 11:38 → 4N 03-03 15:55
PROVIDERS: ATTEND Internal Medicine

== ENCOUNTER 2017-04-06 06:54 | Inpatient (IN) ==
--- NOTE | 2017-04-06 07:20 | EKG Report ---
Test Performed on : 04/06/2017 07:05:22 AM Test Reason : slurred speech Blood Pressure : / mmHG Vent. Rate : 138 BPM Atrial Rate : 138 BPM P-R Int : 000 ms QRS Dur : 106 ms QT Int : 332 ms P-R-T Axes : 000 -35 148 degrees QTc Int : 502 ms Atrial fibrillation. with rapid ventricular response. Left axis deviation Possible Anterior infarct (cited on or before 04-APR-2017) T wave abnormality, consider lateral ischemia Abnormal ECG When compared with ECG of 04-APR-2017 09:00, Serial changes of evolving Anterior infarct present Unconfirmed Result
--- NOTE | 2017-04-06 07:23 | Diag Imaging Result Doc PS360 ---
HEAD W/O CONTRAST - 04/06/2017 INDICATION: stroke like symptoms TECHNIQUE: A CT dose reduction protocol was used. COMPARISON: None FINDINGS: The ventricles and sulci are normal in size and contour. No intracranial mass or hemorrhage. The skull is intact. The sinuses mastoids and middle ears are clear. IMPRESSION: Negative exam. Electronically signed by Hiro Dubois 04/06/2017 7:21 AM
[2017-04-06 07:51] LABS: MANUAL DIFF NEEDED? NO
[2017-04-06 07:54] LABS: BASO% 0.2 % (0.0-0.8); EOS# 0.07 X1000 (0.0-0.7); EOS% 1.3 % (0.0-10.0); HEMATOCRIT 46.8 % (42.0-52.0); HEMOGLOBIN 15.6 g/dL (14.0-18.0); LYMPH% 12.9 % (20.5-51.1); MCH 30.3 PG (27-31); MCHC 33.3 g/dL (33-37); MCV 90.9 FL (81-99); MONO# 0.67 X1000 (0.11-0.59); MONO% 12.3 % (1.7-9.3); MPV 10.9 FL (7.4-10.4); NEUT% 73.3 % (42.2-75.2); PLT 155 X1000 (130-400); RBC 5.15 XMIL (4.7-6.1)
[2017-04-06] MEDS ORDERED: CARDIZEM ONE (08:02)
[2017-04-06] MEDS ORDERED: NS 500 ML ONE (08:03)
[2017-04-06 08:04] LABS: INR 1.44; PROTIME 15.5 Seconds (9.2-11.7)
[2017-04-06] MEDS ORDERED: CARDIZEM IV ONE (08:04)
[2017-04-06] MEDS ORDERED: NS 500 ML IV ONE (08:04)
--- NOTE | 2017-04-06 08:18 | Diag Imaging Result Doc PS360 ---
EXAM: CHEST-PORTABLE INDICATION: stroke like symptoms TECHNIQUE: One view COMPARISON: 04/04/2017 FINDINGS: Inspiration is suboptimal and lung volumes are somewhat lower than the previous study. There is a left basilar effusion with adjacent atelectasis and/or infiltrate. This is probably stable given differences in inspiration. No new consolidations are appreciated. There is stable cardiomegaly. IMPRESSION: Lower lung volumes but essentially stable chest, otherwise. Electronically signed by Hussain Austin 04/06/2017 8:16 AM
[2017-04-06 08:25] LABS: CALCIUM 8.6 mg/dL (8.8-10.2); TOTAL BILIRUBIN 0.88 mg/dL (0.20-1.00); TOTAL PROTEIN 6.5 g/dL (6.3-8.3)
[2017-04-06 08:26] LABS: ALBUMIN 3.4 g/dL (3.5-5.0); POTASSIUM 5.8 mmol/L (3.5-5.1)
--- NOTE | 2017-04-06 08:50 | PROVIDER DOCUMENTATION ---
HPI-Neurological Disorder - General Chief Complaint: Stroke-Like Symptoms Stated Complaint: CANT WALK,SLURRED SPEECH Time Seen by Provider: 04/06/17 07:10 Source: patient, family Allergies/Adverse Reactions: Patient Allergies Allergy/AdvReac Type Severity Reaction Status Date / Time ciprofloxacin [From Cipro] Allergy Intermediate SWELLING Verified 04/06/17 07:46 Home Medications: Home Medication List Medication Instructions Recorded Confirmed Last Taken Type Cyanocobalamin/Folic Acid [Vitamin 1 each PO DAILY 05/30/15 04/06/17 04/05/17 13 :30 History A02-Rnnft Acid Tablet] Gabapentin [Neurontin] 200 mg PO QHS 05/30/15 04/06/17 04/04/17 21:00 History Pantoprazole [Protonix] 40 mg PO DAILY@0700 05/30/15 04/06/17 04/05/17 13:30 History Sevelamer Carbonate [Renvela] 800 mg PO TID CC 05/30/15 04/06/17 04/05/17 13:30 History Sodium Bicarbonate 1,300 mg PO BID 05/30/15 04/06/17 04/05/17 13:30 History Tamsulosin HCl [Flomax] 0.4 mg PO QHS 05/30/15 04/06/17 04/04/17 History Aspirin EC 81 mg PO DAILY #0 tablet 09/20/16 04/06/17 04/05/17 13:30 Rx Metoprolol [Lopressor] 25 mg PO BID 02/20/17 04/06/17 04/05/17 13:30 History Prednisone 5 mg PO DAILY 02/20/17 04/06/17 04/05/17 13:30 History - History of Present Illness-Neuro Nature of Presenting Problem: Pt is on HD. reports pt was seen at ER 2 days ago for hypotension and slurry speech, was discharged from ER and his slurry speech was resolved. Pt was last seen normal was 24 hours ago with normal speech when his went to work in the morning yesterday, but he got slurry speech again yesterday at 1PM when his came back home from work. Did not seek care till this morning. reports he could not walk with slurry speech this morning . Severity: reports: mild Onset/Duration: reports: 24 hours ago Timing: reports: still present, improving Character of Altered Mental Status: reports: other (See above) Character of Deficits: reports: impaired speech, decreased ability to walk. denies: altered sensation, vision problem/glaucoma New weakness or altered sensation location:: reports: general (diffuse) Cognitive Baseline: alert, oriented x3 Gait Baseline: walks only with assistance Associated Symptoms: reports: denies symptoms. denies: decreased ability to walk or stand, fainting, neck/back pain, fatigue, insomnia, nausea, diaphoretic , seizures Similar Symptoms Previously?: Yes Recently seen or treated by another doctor?: Yes - Seizure First time to have a seizure?: No Review of Systems - Adult - REVIEW OF SYSTEMS - ADULT Constitutional: reports: no symptoms reported Eyes: reports: no symptoms reported Ears, Nose, Mouth & Throat: reports: no symptoms reported Cardiovascular: reports: no symptoms reported Respiratory: reports: no symptoms reported Gastrointestinal: reports: no symptoms reported Genitourinary: reports: no symptoms reported Musculoskeletal: reports: no symptoms reported Integumentary: reports: no symptoms reported Neurological: reports: see HPI, ataxia, slurred speech. denies: loss of balance , numbness, seizure, syncope Psychiatric: reports: no symptoms reported Endocrine: reports: no symptoms reported Hematologic/Lymphatic: reports: no symptoms reported Allergic/Immunologic: reports: no symptoms reported All Other Systems: Reviewed and Negative Past History - Adult - PAST MEDICAL HISTORY-ADULT Review of Records: reports: Old Records Reviewed, Nursing Assessment Review, Medications Reviewed, Social history reviewed & non-contributory. Major Childhood Illnesses: reports: denies history Cardiovascular: reports: A-Fib, HTN, PVD Respiratory: reports: denies history Gastrointestinal: reports: Crohn's Obstetrical/Gynecological: reports: denies history Genitourinary: reports: dialysis (MWF), ESRD, other Musculoskeletal: reports: denies history Neurological: reports: denies history Endocrine/Immune: reports: denies history Other Conditions: reports: denies history - PRIOR SURGERIES/PROCEDURES Surgical/Procedure History: reports: indwelling device (Av fistula), bowel surgery - IMMUNIZATION STATUS Childhood Immunizations: See Nurse Assessment Flu Vaccine: See Nurse Assessment - FAMILY HISTORY Family History: reviewed, not pertinent Physical Exam- Neurological - Physical Exam-Neuro Initial Vital Signs Reviewed: Yes General Appearance: appears well, alert, no apparent distress, mild distress Eye Exam: bilateral eye: PERRL, EOMI HENMT: normocephalic/atraumatic, moist mucous membranes Head Injury: no evidence of injury, active bleeding Neck: non-tender, full range of motion, supple Respiratory: chest non-tender, lungs clear, normal breath sounds, no pleuratic chest pain, no respiratory distress, no accessory muscle use Cardiovascular: normal peripheral pulses, regular rate, rhythm, no edema, no gallop, no JVD, no murmur Extremity: normal range of motion, non-tender, normal gait, normal inspection, 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 Exam: normal hearing, normal speech Coordination/Gait: normal finger to nose Motor/Sensory: no motor deficit, no sensory deficit, other (Moves all 4 exts with equal girp and strength) Neurologic: no motor/sensory deficits Integumentary: normal color Psych/Mental Status: normal mood/affect, normal thought content, normal thought process, oriented x 3 - Glascow Coma Scale Best Eye Response: (4) open spontaneously Best Verbal Response: (5) oriented Best Motor Response: (6) obeys commands Total Glascow Score: 15 Progress - PLAN OF CARE/RESULTS Progress/Plan/Lab Results: Vital Signs - 8 hr 04/06/17 07:23 04/06/17 07:51 04/06/17 08:12 Temperature 97.1 F L Pulse Rate 139 H 130 H 122 H Respiratory Rate 22 16 14 Blood Pressure 121/94 104/85 124/94 O2 Sat by Pulse Oximetry 98 98 98 04/06/17 08:23 Temperature Pulse Rate 107 H Respiratory Rate 14 Blood Pressure 105/91 O2 Sat by Pulse Oximetry Laboratory Results - last 24 hr 04/06/17 04/06/17 04/06/17 07:35 07:35 07:35 WBC 5.44 RBC 5.15 Hgb 15.6 Hct 46.8 MCV 90.9 MCH 30.3 MCHC 33.3 RDW Std Deviation 15.8 H Plt Count 155 D MPV 10.9 H Immature Gran % (Auto) 0.0 Neut % (Auto) 73.3 Lymph % (Auto) 12.[address] % (Auto) 12.3 H Eos % (Auto) 1.3 Baso % (Auto) 0.2 Immature Gran # (Auto) 0.00 Neut # (Auto) 3.99 Lymph # (Auto) 0.[address] # (Auto) 0.67 H Eos # (Auto) 0.07 Baso # (Auto) 0.01 PT 15.5 H INR 1.44 PTT (Actin FS) 31.0 Sodium 137 Potassium 5.8 H D Chloride 91 L Carbon Dioxide 16 L Anion Gap 30 BUN 54 H D Creatinine 8.8 H Estimated GFR/1.73 m2 6 BUN/Creatinine Ratio 6 Glucose 75 Calculated Osmolality 287 Calcium 8.6 L Total Bilirubin 0.88 AST 39 H ALT 35 Alkaline Phosphatase 190 H Troponin T Total Protein 6.5 Albumin 3.4 L Globulin 3.1 Albumin/Globulin Ratio 1.1 04/06/17 07:35 WBC RBC Hgb Hct MCV MCH MCHC RDW Std Deviation Plt Count MPV Immature Gran % (Auto) Neut % (Auto) Lymph % (Auto) [facility] % (Auto) Eos % (Auto) Baso % (Auto) Immature Gran # (Auto) Neut # (Auto) Lymph # (Auto) [facility] # (Auto) Eos # (Auto) Baso # (Auto) PT INR PTT (Actin FS) Sodium Potassium Chloride Carbon Dioxide Anion Gap BUN Creatinine Estimated GFR/1.73 m2 BUN/Creatinine Ratio Glucose Calculated Osmolality Calcium Total Bilirubin AST ALT Alkaline Phosphatase Troponin T 0.158 H Total Protein Albumin Globulin Albumin/Globulin Ratio Orders Category Date Time Status Cardiac Monitoring DIRECTED Care 04/06/17 07:05 Active Finger Stick Blood Sugar (ED) DIRECTED Care 04/06/17 07:05 Active Misc. NRSG Communication Order DIRECTED Care 04/06/17 07:05 Hold Saline Loc NOW Care 04/06/17 07:05 Active CHEST-PORTABLE [RAD] Stat Exams 04/06/17 07:05 Completed HEAD W/O CONTRAST [CT] Stat Exams 04/06/17 07:05 Completed CBC WITH ELECTRONIC DIFF [HEME] Stat Lab 04/06/17 07:35 Completed COMPREHENSIVE METABOLIC PANEL [CHEM] Stat Lab 04/06/17 07:35 Completed PROTIME WITH INR [COAG] Stat Lab 04/06/17 07:35 Completed PTT [COAG] Stat Lab 04/06/17 07:35 Completed TROPONIN T Stat Lab 04/06/17 07:35 Completed URINALYSIS W/POSS RFLX CULT-1 [URINALYSIS] Stat Lab 04/06/17 07:05 Uncollected URINE DRUG SCREEN Stat Lab 04/06/17 07:05 Uncollected 0.9% Sodium Chloride Inj [Ns] 500 ml Med 04/06/17 08:03 Discontinued .ROUTE As Directed 0.9% Sodium Chloride Inj [Ns] 500 ml Med 04/06/17 08:04 Active IV 500 mls/hr Diltiazem [Cardizem] Med 04/06/17 08:04 Discontinued 15 mg IV NOW ONE Diltiazem [Cardizem] Med 04/06/17 08:02 Discontinued 25 mg .ROUTE .STK-MED ONE EKG [EKG] Stat Ther 04/06/17 07:01 Draft Result Diagrams: 04/06/17 07:35 04/06/17 07:35 - EKG 1 EKG Interpretation (*Must complete 3 of following elements*): Abnormal Rate: 138 Rhythm: A-fib with RVR [place]: normal QRS: normal - XRAY 1 XRAY Study: Chest XRAY Interpretation: Stable - CT/MRI 1 MRI Study: Head Impression: Normal - CONSULTS/PCP/HOSPITALIST Notification Time Discussed: 08:57 Reason/Comments: Admit to hospitalist Consult Disposition: Admit Departure - Departure Time of Disposition Decision: 08:56 DIAGNOSIS: Atrial fibrillation with RVR CVA (cerebral vascular accident) Qualifiers: CVA mechanism: unspecified Qualified Code(s): I63.9 - Cerebral infarction, unspecified Disposition: ADMITTED INPATIENT 09 Certified Medical Emergency: Emergent Condition: Stable Referrals and Follow-Ups: Steven Avila [Primary Care Provider] - - Critical Care Note This patient required my direct & personal management of CC.: No
--- NOTE | 2017-04-06 08:56 | ED EKG INTERP ---
This chart was entered by Cris Norman Scribe, acting as scribe for Ralph Castorena MD. EKG Interpretation - EKG Time of EKG reading by physician:: 07:05 EKG Read and Signed by:: Ralph Castorena EKG Interpretation (*Must complete 3 of following elements*): Abnormal Rate: 138 (left axis deviation; possible anterior infarct, age undetermined; T wave abnormality, consider lateral ischemia) Rhythm: atrial fibrillation w/ rapid ventricular repsonse This chart was documented by the indicated scribe, (Cris Norman Scribe) and accurately reflects the services I performed and decisions made by me, Ralph Castorena MD, as attested by the provider's signature.
[2017-04-06] MEDS ORDERED: TYLENOL PO PRN (10:10)
[2017-04-06] MEDS ORDERED: XOPENEX NEB INH PRN (10:10)
[2017-04-06] MEDS ORDERED: ATROVENT NEB INH PRN (10:10)
[2017-04-06] MEDS ORDERED: ZOFRAN IV PRN (10:10)
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
[2017-04-06] MEDS ORDERED: NS 2,000 ML ONE (10:35)
[2017-04-06] MEDS ORDERED: HEPARIN IV PRN (10:35)
[2017-04-06] MEDS ORDERED: NS 2,000 ML MISC PRN (10:35)
[2017-04-06] MEDS ORDERED: TIGHT: 0.2 ML/HR MISC PRN (10:35)
--- NOTE | 2017-04-06 11:38 | Diag Imaging Result Doc PS360 ---
MRI BRAIN W/O CONTRAST - 04/06/2017 INDICATION: stroke symptoms COMPARISON: Head CT earlier 04/06/2017 FINDINGS: There is no area of restricted diffusion. The ventricles and sulci are normal in size and contour. No intracranial mass or hemorrhage. There are a few small, scattered areas of periventricular and deep white matter hyperintensity in the cerebral hemispheres, on the T2 and FLAIR images. Midline structures including the optic chiasm and pituitary are normal. IMPRESSION: No acute disease. Electronically signed by Hiro Dubois 04/06/2017 11:35 AM
--- NOTE | 2017-04-06 11:39 | Diag Imaging Result Doc PS360 ---
MRA BRAIN W/O CONTRAST - 04/06/2017 INDICATION: stroke symptoms TECHNIQUE: Noncontrast [id number] technique was used COMPARISON: None FINDINGS: The intracranial arteries are all grossly normal. No aneurysm or significant stenosis. IMPRESSION: Negative exam. Electronically signed by Hiro Dubois 04/06/2017 11:37 AM
--- NOTE | 2017-04-06 11:40 | Diag Imaging Result Doc PS360 ---
MRA NECK W/O CONT - 04/06/2017 INDICATION: stroke symptoms TECHNIQUE: Noncontrast [id number] technique was used COMPARISON: None FINDINGS: There is significant patient motion artifact. The major arteries of the neck are all patent. The right vertebral artery is dominant. IMPRESSION: Negative exam. Electronically signed by Hiro Dubois 04/06/2017 11:38 AM
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
[2017-04-06] MEDS: RENAGEL PO SCH ×2 (15:38→17:03)
[2017-04-06] MEDS: PRILOSEC PO SCH (20:36)
[2017-04-06] MEDS: SODIUM BICARBONATE PO SCH (20:36)
[2017-04-06] MEDS: FLOMAX PO SCH (20:36)
[2017-04-06] MEDS: HEPARIN SUBQ SCH (20:36)
[2017-04-06] MEDS: LOPRESSOR PO SCH (20:36)
[2017-04-07 06:02] LABS: MANUAL DIFF NEEDED? NO
[2017-04-07 06:23] LABS: ALBUMIN 2.8 g/dL (3.5-5.0); CALCIUM 7.8 mg/dL (8.8-10.2); MAGNESIUM 1.6 mg/dL (1.5-2.7); POTASSIUM 3.7 mmol/L (3.5-5.1); TOTAL BILIRUBIN 0.85 mg/dL (0.20-1.00); TOTAL PROTEIN 5.6 g/dL (6.3-8.3)
[2017-04-07 06:26] LABS: INR 1.48; PROTIME 15.9 Seconds (9.2-11.7); PTT 33.3 Seconds (22.0-36.0)
[2017-04-07 06:52] LABS: BASO% 0.4 % (0.0-0.8); EOS# 0.08 X1000 (0.0-0.7); EOS% 1.6 % (0.0-10.0); HEMOGLOBIN 12.7 g/dL (14.0-18.0); LYMPH# 0.49 X1000 (1.2-3.4); MCHC 32.6 g/dL (33-37); MCV 92.2 FL (81-99); MONO# 0.59 X1000 (0.11-0.59); MPV 11.3 FL (7.4-10.4); PLT 113 X1000 (130-400); RBC 4.23 XMIL (4.7-6.1)
[2017-04-07] MEDS: ASPIRIN EC PO SCH (08:58)
[2017-04-07] MEDS: SODIUM BICARBONATE PO SCH ×2 (08:58→20:14)
[2017-04-07] MEDS: RENAGEL PO SCH ×3 (08:58→16:40)
[2017-04-07] MEDS: PREDNISONE PO SCH (08:59)
[2017-04-07] MEDS: PRILOSEC PO SCH ×2 (08:59→20:13)
[2017-04-07] MEDS: HEPARIN SUBQ SCH ×2 (08:59→20:13)
[2017-04-07] MEDS: LOPRESSOR PO SCH ×3 (08:59→21:26)
[2017-04-07] MEDS: PATIENT'S OWN MED PO SCH (09:15)
--- NOTE | 2017-04-07 10:03 | CONSULTATION ---
DATE OF CONSULTATION: 04/07/2017 REASON FOR ADMISSION: Slurred speech, shaking, question of ischemic event. REASON FOR CONSULTATION: End-stage renal disease. CONSULTING PHYSICIAN: Dr. Weber. HISTORY OF PRESENT ILLNESS: This is a 71-year-old gentleman well known to our service for end- stage renal disease on hemodialysis on a Sunday, Sunday, Sunday schedule. He states that on the , or 2 days prior to admission, he began having some slurred speech and some blurry vision. He did not go to the emergency room or seek further treatment. They thought it was secondary to him having hypotension during dialysis. The patient states that these symptoms continued, and yesterday he was brought to the emergency room because he was afraid he had a stroke. He states that he had been having blurry vision for at least 2 days. He had been having increased anxiety. He was having some shaking and weakness in the upper extremities. He states that it was more noticeable on the left. However, both extremities were affected, and that this weakness and shaking was in on cough pattern and not continuous. He presented to dialysis apparently and with these symptoms he was referred to the emergency room for further workup and treatment. Today, he continues to have some blurry vision. He states that this morning he is not having any shaking in the hands or arms. He still feels weak. He has had no chest pain. No shortness of breath. PAST MEDICAL HISTORY: 1. End-stage renal disease on hemodialysis Sunday, Sunday, Sunday. 2. Chronic atrial fibrillation without anticoagulation followed by Cardiology. 3. Crohn's disease. 4. Hypertension. 5. Renal stones. 6. Restless legs syndrome. 7. Peripheral artery disease. 8. BPH. 9. Hyperphosphatemia. 10. Anemia of chronic disease. 11. Neuropathy. 12. CHF. 13. Diastolic dysfunction. 14. Right leg DVT. 15. GERD. 16. Hypercalcemia. PAST SURGICAL HISTORY: He has had 2 colon resections. He has had skin cancer removals. He has a left upper extremity AV fistula. He has had a right femoral oral artery repair. He has had bilateral cataract surgery. He has had wound debridement to the legs. ALLERGIES: Ciprofloxacin. HOME MEDICATIONS: Sodium bicarbonate, Flomax, Neurontin, Protonix, Renvela, vitamin B12, folic acid, aspirin, prednisone, Lopressor. REVIEW OF SYSTEMS: Pertinent positives noted above in the HPI. It is positive for blurry vision, increased weakness and greater to the left that is not consistent in nature. Increased nausea and gagging. PHYSICAL EXAMINATION: Vital Signs: Temperature 98.3 degrees, pulse 116-148, respiratory rate 20, blood pressure 102/63. Intake not measured. Output 2.5 L. General: This is a chronically ill- appearing, elderly gentleman resting in bed. He is awake and alert. He is able to give a history. He is not having any slurred speech, this morning. He does appear to have some blurry vision, as he is wincing when he is trying to focus on items. No overt trembling noted to the upper extremities. HEENT: Normocephalic, atraumatic. His conjunctivae are pink. PERRL, his oral mucosa is moist. Neck: Supple. Trachea midline. No JVD. Cardiovascular: Tachycardic, irregular. Pulmonary: Equal excursion. There is no increased work of breathing. No overt rales. Occasional wheeze. Abdomen: Flat, soft, positive bowel sounds. : Not inspected. He has minimal void with hemodialysis assist. Extremities: There is no clubbing, cyanosis or edema. AV fistula noted in left upper extremity. Integumentary: Skin is warm and dry. He has vascular changes noted bilateral lower extremities and some healing wounds to the lower extremities. Neurologic: Again, he appears to have difficulty focusing. He does have equal movement. He has current equal strength, no trembling at this time. LAB DATA: WBC of 5.4, hemoglobin 15. Sodium 142, potassium 3.7, CO2 of 23, BUN 39, creatinine 7.3, all of his imaging to the head-CT, MRI and MRA were all negative. ASSESSMENT AND PLAN: 1. End-stage renal disease. Yesterday was his routine dialysis. We went ahead and dialyzed him while he was in the emergency room setting. His next scheduled dialysis is Sunday. 2. Electrolytes, acid-base balance anemia, these are all stable. 3. Slurred speech, since 2 days prior. Again, his head imaging was all negative, followed by primary to rule out other causes. 4. Chronic atrial fibrillation. He is not currently on anticoagulation secondary to bleeding issues. His rate has been controlled with metoprolol. He could not tolerate Cardizem previously. This is being followed by the primary and Cardiology. Dictated by MELVA Hernandez for Adria Garcia MD cc: Adria Garcia MD
--- NOTE | 2017-04-07 12:10 | PROGRESS NOTE ---
DATE: 04/07/2017 SUBJECTIVE: Mr. Byrne seems to be a little more aware, a little sharper. He did get up out of a chair and went to the bed and appears to be little less lethargic. He is concerned about his coordination in both hands, but I think he is even more concerned about his memory. I do not think speech bothers him. OBJECTIVE: Temperature 97.9 degrees, pulse 43, respirations 16, blood pressure 109/82. Pupils appeared equal. CVP less than 6 cm. Lungs are clear in all lung campos. Cardiovascular: Regular rhythm and rate without murmur or S3. Abdomen is soft. Skin is warm and dry. LABORATORY DATA: White count 4910, hematocrit 39, platelet count 113,000. Sodium 142, potassium 3.7, chloride 39. BUN 39, creatinine 7.3. Troponin 0.0153. C-reactive protein was 39 which is high. B12 was greater than 2000. TSH was 10.06 with T4 of 1.4. ASSESSMENT AND PLAN: 1. End-stage renal disease. Volume status, electrolytes and acid base looks good. Continue dialysis. 2. Slurred speech. Altered mental status. Trouble with memory. Questionable metabolic global encephalopathy. 3. History of Crohn's disease. 4. History of chronic atrial fibrillation, rate is being controlled. 5. Restless leg syndrome. 6. Peripheral artery disease. 7. Benign prostatic hypertrophy. I reviewed lab; unremarkable. I reviewed present orders. I am going to start him on a little bit of Synthroid. We will start him at 50 mcg daily as he does appear to have at least subclinical hypothyroidism. Note, the T4 was 1.4, but the TSH was 10.06, and I may repeat the T4 and TSH. Before I do that, will discuss with Dr. Garcia. cc: Francois Weber MD
--- NOTE | 2017-04-07 16:17 | PROGRESS NOTE ---
DATE: 04/07/2017 SUBJECTIVE: Patient still relates feeling weak and having some blurry vision. His speech is clear. There is no chest discomfort or dyspnea. He does note some palpitations in association with his atrial fibrillation, rapid ventricular rate. OBJECTIVE: Vital Signs: Blood pressure 109/82, heart rate 143 and irregular with ECG monitor showing atrial fibrillation with rapid ventricular rate. Neck: There is no significant jugular venous distention. Chest: Clear to auscultation. Cardiac exam: Reveals an irregular rate and rhythm without appreciable murmur or gallop. There is no evidence of peripheral edema. DIAGNOSTIC STUDIES: Brain MRI reportedly negative for acute process. IMPRESSIONS: 1. Global weakness as well as some trouble with memory. Agree with consideration of possible metabolic process in light of negative MRI of brain. 2. End-stage renal disease. 3. Atrial fibrillation with rapid ventricular rate. Duration unknown. 4. History of Crohn disease but no recent gastrointestinal blood loss. 5. History of deep vein thrombosis in the lower extremity. Treated with warfarin several years ago as well as IVC filter. RECOMMENDATIONS: 1. Will increase beta-su to achieve rate control. 2. Continue subcutaneous heparin. 3. Review and consider thromboembolic risk reduction strategies in this patient ranging from warfarin to low dose Eliquis to possible Watchman device or like device. cc: Gregg Calles MD
[2017-04-07] MEDS: FLOMAX PO SCH (20:13)
[2017-04-08 06:44] LABS: FREE T4 1.38 ng/dL (0.93-1.70)
[2017-04-08 06:45] LABS: ALLEN TEST YES; BE -2.6 mmoll (-3.0-3.0); BLOOD TYPE ARTERIAL; DRAW SITE R RADIAL; METHB 0.6 % (0.0-1.5); O2(CT) 18.4 mL/dL (15.0-23.0); PCO2(98.6) 25 mmHg (35-45); PO2(98.6) 80 mmHg (60-100); SAMPLE BLOOD; SAO2 96.3 % (95.0-100.0); THB 13.8 g/dL (11.5-17.4); pH(98.6) 7.49 (7.35-7.45)
[2017-04-08 06:46] LABS: CALCIUM 8.3 mg/dL (8.8-10.2); POTASSIUM 4.4 mmol/L (3.5-5.1)
[2017-04-08 06:46] LABS: MODALITY ROOM AIR
--- NOTE | 2017-04-08 06:52 | Diag Imaging Result Doc PS360 ---
EXAM: HEAD W/O CONTRAST HISTORY: r/o cva TECHNIQUE: COMPARISON: 04/06/2017 FINDINGS: No parenchymal hemorrhage. No epidural or subdural hematoma. No subarachnoid hemorrhage. No mass identified on this noncontrasted exam. No hydrocephalus. No sinus opacification. IMPRESSION: No hemorrhage. No change from the prior exam. Electronically signed by Isidro Jimenes 04/08/2017 6:49 AM
[2017-04-08] MEDS: ASPIRIN EC PO SCH (08:21)
[2017-04-08] MEDS: LOPRESSOR PO SCH ×2 (08:21→20:41)
[2017-04-08] MEDS: PATIENT'S OWN MED PO SCH (08:21)
[2017-04-08] MEDS: RENAGEL PO SCH ×3 (08:21→17:03)
[2017-04-08] MEDS: SODIUM BICARBONATE PO SCH ×2 (08:22→20:43)
[2017-04-08] MEDS: PRILOSEC PO SCH ×2 (08:22→20:43)
[2017-04-08] MEDS: PREDNISONE PO SCH (08:22)
[2017-04-08] MEDS: HEPARIN SUBQ SCH ×2 (08:27→20:52)
[2017-04-08] MEDS ORDERED: NS 1,000 ML IV SCH (10:57)
[2017-04-08] MEDS ORDERED: CARDIZEM 100 MG/NS 100 MG/100 ML IVPB IV SCH (11:16)
[2017-04-08] MEDS ORDERED: CARDIZEM IV ONE (11:16)
--- NOTE | 2017-04-08 11:47 | PROGRESS NOTE ---
DATE: 04/08/2017 SUBJECTIVE: Mr. Byrne, around 9 o'clock last night, started becoming more lethargic. He has a cough, tenacious thick cough. He seems to be more lethargic. CT of the head done this morning, no change from prior exam. No parenchymal hemorrhage. He was admitted on the . A 71-year- old who, on the , got a call from dialysis. On the of this month, he had some atrial fibrillation. He said he had some blood pressure that dropped. His states that at that time, his speech seems to have been slurred and has persisted, and had trouble formulating words. On the , he seemed to be weaker and more lethargic so she brought him in. PAST MEDICAL HISTORY: 1. End-stage renal disease, gets dialysis Mondays, Wednesdays, and Fridays. 2. Chronic atrial fibrillation. 3. Crohn's disease. 4. Hypertension. 5. Kidney stones. 6. Restless legs syndrome. 7. Peripheral artery disease. 8. Benign prostatic hypertrophy. PHYSICAL EXAMINATION: General: Today, he is just weak and less responsive. He does have a cough and the sputum is thick. He has numerous family in the room trying to encourage him to cough up the sputum. Vital Signs: Afebrile, temperature 98.7 degrees, pulse 150, respirations 18, blood pressure 123/92. Respiratory: Lungs are clear in all lung campos. Cardiovascular Examination: Regular rhythm and rate without murmur or S3. Abdomen: Soft. Skin: Is warm and dry. LAB: From yesterday reviewed. Chemistries today, sodium 138, potassium 4.4, chloride 92, BUN 46, creatinine 8.4. TSH was 11.44, T4 at 1.38. B12 greater than 2000. C-reactive protein was high at 39. ASSESSMENT AND PLAN: 1. Global weakness as well as some trouble with memory, considered as possible metabolic process. We repeated a CT. We need to do an MRI of his brain at some point. 2. End-stage renal disease. His volume status and electrolytes look okay. 3. Atrial fibrillation with rapid ventricular rate, duration unknown. 4. Crohn's disease, aware. 5. Deep venous thrombosis of the lower extremity which he has been on warfarin for years. 6. He seems to be more lethargic and more confused. I guess we have to entertain possibly seizure activity or partial complex or atypical seizure. I am going to continue his bicarbonate. He is on Flomax 0.4 mg at bedtime, Renagel 800 mg three times a day. His volume status looks good. In fact, I am going to give him a little bit of volume back. Move him to the unit. Check a chest x-ray and blood gases. cc: Francois Weber MD
--- NOTE | 2017-04-08 17:25 | PROGRESS NOTE ---
DATE: 04/08/2017 IMPRESSION: Patient moved to intensive care unit after becoming increasingly lethargic. He also required intravenous Cardizem to control his heart rate response to atrial fibrillation. When I see him he remains lethargic. He has had some cough with tenacious sputum. OBJECTIVE: Vital Signs: Heart rate 110 and irregular with ECG monitor showing atrial fibrillation. Blood pressure 125/77, oxygen saturation 94%. Neck: Neck veins appear distended suggesting elevated central venous pressure. Chest: Clear to auscultation. Cardiac Exam: Reveals an irregular tachycardia without appreciable murmur or gallop. There is no evidence of peripheral edema. LAB DATA: Includes hematocrit 39. INR 1.48. BUN 46, creatinine 8.4, potassium 4.4, carbon dioxide 20. TSH 11.55. Head CT shows no hemorrhage or change from previous exam. Recent brain MRI negative. IMPRESSIONS: 1. Encephalopathy. Etiology not entirely clear. Suspect metabolic. 2. Atrial fibrillation with rapid ventricular rate. Heart rate better now with intravenous Cardizem. 3. End-stage renal disease requiring chronic hemodialysis. 4. History of deep vein thrombosis in the lower extremity. Treated in the past with warfarin for several years as well as inferior vena cava filter. 5. History of Crohn disease. RECOMMENDATIONS: 1. Continue beta-su as permitted by clinical situation. 2. Continue intravenous Cardizem as required. 3. Continue subcutaneous heparin. 4. Will repeat stat limited echo just to assess cardiac function to see if there is any change that might help shed light on his encephalopathy. cc: Gregg Calles MD
--- NOTE | 2017-04-08 18:25 | CONSULTATION ---
DATE OF CONSULTATION: 04/08/2017 CONSULTATION TO: Dr. Jackson Weber. Thank you very much for asking me to see this very unfortunate 71-year-old male. DIAGNOSES: 1. Acute change in mental status possibly secondary to a cerebrovascular accident and metabolic encephalopathy or transient ischemic attack. 2. Chronic renal insufficiency on hemodialysis. 3. History of chronic renal insufficiency. 4. Benign prostatic hypertrophy. 5. Hypertension. RECOMMENDATIONS: Currently he appears to be oxygenating and ventilating okay. His airway protection is in question although this is in conjunction with the assessment of his mental status. Will give him Proventil and Atrovent bronchodilators as well as supplemental oxygen, DVT prophylaxis with heparin and follow his gas exchange and his x-rays along with you. HISTORY: This very unfortunate 71-year-old male white was ambulatory prior to his admission. He developed the acute onset of slurring of speech and weakness and subsequently was admitted and I am consulted to assist in his care. CT of the chest is not showing any acute abnormalities. REVIEW OF SYSTEMS: Except for the features mentioned above are negative for weight loss, night sweats, weakness or anorexia. No ENT symptoms of odynophagia, dysphagia, epistaxis or painful swallowing. No eye symptoms of blindness, blurring or diplopia. No other cardiac or pulmonary symptoms other than mentioned. No nausea, vomiting, constipation, diarrhea. No hematuria, polyuria, nocturia, dysuria, no joint or muscle pain, stiff, swelling. No skin rash, itching, bruises, no seizures, loss of consciousness or paralysis. Except for the features mentioned above all other symptoms on the review of systems are negative. PAST MEDICAL HISTORY: Is positive for end-stage renal disease, dialysis Sunday, Sunday. He also has a history of chronic atrial fibrillation, Crohn disease, hypertension, BPH, restless leg. SOCIALLY: He lives at home with his . Nonsmoker and nondrinker but a previous smoking history and quit over 10 years ago accumulating nearly a 20 pack year history. He has a left upper extremity graft for which she is dialyzed through. FAMILY HISTORY: Positive for heart disease and cancer. PHYSICAL EXAM: Vital signs: He has a blood pressure of 123/74 with a pulse 115 irregular, respirations 18, temperature 98.7 degrees. HEENT: Exam reveals no thyromegaly or adenopathy. Pupils are equal and reactive. Extraocular motions are intact. Neck: Supple. No bruits. No thyromegaly. No JVD. Chest: Reveals bilateral equal breath sounds with some prolongation expiratory phase, forced expiratory wheezes. Cardiac Exam: Reveals an irregular rhythm without an appreciable murmur. Abdomen: Soft, nontender. No hepatosplenomegaly. Extremities: Reveal no edema. Neurologically: He appears to have some weakness on the left side as well as some neglect on the left. He makes no purposeful movements or responses. DATA: The sodium is 138, potassium 4.4, chloride 92, CO2 20, BUN 46, creatinine 8.4, glucose 78. The ABG shows a 7.42 pH with 25 CO2, 80 O2. The white count is 4900, hemoglobin 12.3, hematocrit 39.7, platelets of 113,000.
[2017-04-08] MEDS: FLOMAX PO SCH (20:40)
--- NOTE | 2017-04-08 20:48 | ECHO REPORT ---
ORDER DATE: 04/08/2017 MEASUREMENTS: Left ventricular end-diastolic diameter 5.9. Posterior wall thickness 1.0. Septal thickness 1.3. Left atrium 4.8. SUMMARY: 1. Limited followup two-dimensional echocardiogram performed. 2. Aortic valve is sclerotic, but opens adequately on 2-dimensional images. Moderate posterior mitral annular calcification is demonstrated, with mild to moderate mitral regurgitation. Tricuspid valve is without structural abnormality, with moderate tricuspid regurgitation. Pulmonic valve is not well-demonstrated. Estimated systolic PA pressure by Doppler is 50 mmHg. Aortic root is normal in size. 3. Mild left ventricular enlargement, with mild concentric left hypertrophy is suggested, with upper normal wall thickness suggested. Estimated left ejection fraction is approximately 35% to 40%, in the setting of global hypokinesis. Moderate biatrial enlargement is demonstrated. Right ventricle is of normal size, with grossly preserved right ventricular systolic function. 4. No pericardial effusion. 5. Large left pleural effusion. There is also a right pleural effusion. 6. Inferior vena cava not well-demonstrated. CONCLUSIONS: 1. Limited followup 2-dimensional echocardiography performed. 2. Aortic valve sclerosis, without stenosis. 3. [id number] mitral regurgitation. 4. Moderate tricuspid regurgitation, with moderate pulmonary hypertension by Doppler. 5. Estimated left ejection fraction 35-40%. 6. Moderate biatrial enlargement. 7. Large left pleural effusion. There is also a right pleural effusion, the size of which is less well-determined. cc: Gregg Calles MD
[2017-04-08] MEDS: SODIUM CHLORIDE 0.9% INJ SCH (20:52)
[2017-04-08] MEDS: PROTONIX IV SCH (20:52)
[2017-04-09] MEDS: CARDIZEM 100 MG/NS 100 MG/100 ML IVPB IV SCH ×3 (01:34→14:24)
[2017-04-09 05:30] LABS: MANUAL DIFF NEEDED? NO
[2017-04-09 05:37] LABS: BASO% 0.1 % (0.0-0.8); EOS# 0.13 X1000 (0.0-0.7); EOS% 1.9 % (0.0-10.0); HEMATOCRIT 40.1 % (42.0-52.0); HEMOGLOBIN 13.1 g/dL (14.0-18.0); LYMPH# 0.51 X1000 (1.2-3.4); LYMPH% 7.6 % (20.5-51.1); MCH 30.2 PG (27-31); MCHC 32.7 g/dL (33-37); MCV 92.4 FL (81-99); MONO# 0.71 X1000 (0.11-0.59); MONO% 10.6 % (1.7-9.3); MPV 10.9 FL (7.4-10.4); NEUT% 79.8 % (42.2-75.2); PLT 106 X1000 (130-400); RBC 4.34 XMIL (4.7-6.1)
[2017-04-09 05:53] LABS: POTASSIUM 4.6 mmol/L (3.5-5.1)
[2017-04-09 06:12] LABS: ALLEN TEST YES; BE -2.7 mmoll (-3.0-3.0); BLOOD TYPE ARTERIAL; DRAW SITE R RADIAL; METHB 0.3 % (0.0-1.5); O2(CT) 16.9 mL/dL (15.0-23.0); PCO2(98.6) 29 mmHg (35-45); PO2(98.6) 72 mmHg (60-100); SAMPLE BLOOD; SAO2 95.1 % (95.0-100.0); THB 12.8 g/dL (11.5-17.4); pH(98.6) 7.45 (7.35-7.45)
[2017-04-09] MEDS ORDERED: HEPARIN IV PRN (06:12)
[2017-04-09] MEDS ORDERED: NS 2,000 ML MISC PRN (06:12)
[2017-04-09 06:13] LABS: MODALITY ROOM AIR
[2017-04-09] MEDS: SYNTHROID IV SCH (06:14)
[2017-04-09] MEDS: SODIUM CHLORIDE 0.9% INJ PRN (06:15)
--- NOTE | 2017-04-09 06:16 | Diag Imaging Result Doc PS360 ---
EXAM: CHEST-1 VIEW HISTORY: CVA TECHNIQUE: Portable COMPARISON: 04/06/2017 FINDINGS: There is a moderate-sized left-sided pleural effusion. The vasculature is distended with current exam. Heart remains enlarged. There is atelectasis or infiltrate in the left base. IMPRESSION: Interval worsening. Electronically signed by Isidro Jimenes 04/09/2017 6:13 AM
[2017-04-09 06:24] LABS: DIRECT BILIRUBIN 0.6 mg/dL (0.00-0.20); TOTAL BILIRUBIN 1.01 mg/dL (0.20-1.00); TOTAL PROTEIN 5.6 g/dL (6.3-8.3)
--- NOTE | 2017-04-09 07:39 | EKG Report ---
Test Performed on : 04/07/2017 06:34:52 AM Test Reason : afib Blood Pressure : / mmHG Vent. Rate : 155 BPM Atrial Rate : 166 BPM P-R Int : 000 ms QRS Dur : 104 ms QT Int : 320 ms P-R-T Axes : 000 -43 135 degrees QTc Int : 514 ms Atrial fibrillation. with rapid ventricular response. Left axis deviation ST \T\ T wave abnormality, consider lateral ischemia Abnormal ECG When compared with ECG of 06-APR-2017 07:05, Borderline criteria for Anterior infarct are no longer present Confirmed by Emmanuel Carson MD ([id number]) on 04/10/2017 8:18:30 AM
--- NOTE | 2017-04-09 10:07 | PROGRESS NOTE ---
DATE: 04/09/2017 SUBJECTIVE: Mr. Byrne is more awake, more alert, moving all extremities, answering questions. He will go to hemodialysis this morning. OBJECTIVE: Vital Signs: Afebrile, temp 98.3 degrees, pulse 96, respirations 18, blood pressure 144/108. HEENT: Pupils are equal and round. Lungs are clear in all lung campos. Cardiovascular: Regular rhythm and rate without murmur or S3. Abdomen: Soft. Skin is warm and dry. Poor urine output. He has hemodialysis. IMAGING AND LABORATORY DATA: White count 6690, hematocrit 40, platelet count 106,000. Chemistry: Sodium 140, potassium 4.6, chloride 95, bicarb 19, BUN 58, creatinine 9.9. Electrolytes and liver functions unremarkable. Chest x-ray from this morning: Interval worsening of moderate-sized left- sided pleural effusion. Vasculature is distended on current exam. ASSESSMENT AND PLAN: 1. End-stage renal disease, for dialysis. Appears to have a little bit of pulmonary venous hypertension. We did an echocardiogram on 04/08/2017 with limited views. His estimated ejection fraction is 35% to 40%, moderate biatrial enlargement, large left pleural effusion, there is also a right pleural effusion, aortic sclerosis without stenosis. 2. Altered mental status, diminished sensorium. Seemed to have thick mucus secretions. He appears to be doing a little better. Appreciate Dr. Jennings's help. Appreciate Dr. Sheridan's help. Feel like the acute mental status change is secondary to a possible cerebral vascular accident. Something changed on 04/04/2017 while he was getting hemodialysis, but he has what appears to be a metabolic encephalopathy on top of that neurologically. Continue to follow. I do not see anything to change. There is a possibility of atypical seizure. 3. History of benign prostatic hypertrophy and history of hypertension. REVIEW OF ORDERS: I am not sure I see anything to change at this point. I did start him on a little Synthroid as his TSH was elevated. He is on Lopressor 50 mg b.i.d. He is on Protonix 40 mg IV daily, prednisone 5 mg p.o. daily. He is on a Cardizem drip. He did develop atrial fibrillation with rapid rate. cc: Francois Weber MD
--- NOTE | 2017-04-09 10:09 | PROGRESS NOTE ---
DATE: 04/09/2017 SUBJECTIVE: He is somnolent. He did grunt and open his eyes but did not verbalize at all. OBJECTIVE: Vital Signs: Blood pressure 144/108, heart rate 96, respirations 18, afebrile. Physical Examination: General: Elderly man, chronically ill, no distress. Skin: Warm and dry. HEENT: Conjunctivae are pink. Pupils are equal. Neck: Neck veins are distended. Heart: Regular. Lungs: Have equal breath sounds. No crackles or wheezes. Abdomen: Soft, nontender. Bowel sounds present. Extremities: Have no edema, clubbing, or cyanosis. Wounds on his leg are healing. Laboratory Data: Sodium 140, potassium 4.6, chloride 95, bicarbonate 19, BUN 58, creatinine 9.9. Ammonia 75. IMPRESSION: 1. Altered mental status. Etiology is not clear. He is certainly well dialyzed and has no obvious reason why his mental status would be affected by his kidney disease. His ammonia level is moderately elevated. He does not have a history of chronic liver disease. Other studies have been uninformative. 2. End-stage kidney disease. He is undergoing his routine hemodialysis currently. 3. Electrolytes/acid base/anemia all in target. 4. Atrial fibrillation with rapid ventricular response. He has been treated with diltiazem. cc: Adria Garcia MD
[2017-04-09] MEDS ORDERED: STERILE WATER INJ. ONE (11:47)
[2017-04-09] MEDS: ASPIRIN EC PO SCH (11:55)
[2017-04-09] MEDS: HEPARIN SUBQ SCH ×2 (11:56→20:29)
[2017-04-09] MEDS: SOLU-CORTEF IV SCH ×2 (11:57→21:23)
--- NOTE | 2017-04-09 12:07 | PROGRESS NOTE ---
DATE: 04/09/2017 SUBJECTIVE: The patient is more arousable following dialysis today. He denies any chest discomfort or dyspnea. OBJECTIVE: Vital Signs: Blood pressure 154/89. Heart rate 105 and irregular with ECG monitor showing atrial fibrillation. Neck: Jugular venous distention less evident. Chest: Auscultation of the chest reveals diminished breath sounds at the bases. Cardiac: Exam reveals an irregular rate and rhythm. There is no evidence of edema. DIAGNOSTIC DATA: Echocardiography shows large left pleural effusion and some right pleural effusion. Mild to moderate mitral regurgitation demonstrated, as well as moderate tricuspid regurgitation with moderate pulmonary hypertension. Estimated left ejection fraction 35% to 40%. IMPRESSION: 1. Waxing and waning encephalopathy. 2. Volume overload evident with large left pleural effusion. 3. Chronic atrial fibrillation. 4. End-stage renal disease requiring hemodialysis. 5. History of previous deep vein thrombosis in the lower extremity treated with warfarin and inferior vena cava filter in the past. 6. Crohn disease. 7. Cardiomyopathy with moderate reduction in left ventricular systolic function. RECOMMENDATIONS: 1. Continue rate control measures with intravenous Cardizem. 2. More aggressive volume removal needed. We will consult Pulmonary Medicine to see if left thoracentesis might be of benefit. cc: Gregg Calles MD
[2017-04-09] MEDS: LOPRESSOR PO SCH ×2 (14:26→20:30)
[2017-04-09] MEDS: PREDNISONE PO SCH (14:27)
[2017-04-09] MEDS: SODIUM CHLORIDE 0.9% INJ SCH ×2 (20:30→21:23)
[2017-04-09] MEDS: PROTONIX IV SCH (20:30)
[2017-04-10] MEDS: CARDIZEM 100 MG/NS 100 MG/100 ML IVPB IV SCH ×2 (05:13→10:46)
[2017-04-10] MEDS: SODIUM CHLORIDE 0.9% INJ PRN (06:03)
[2017-04-10] MEDS: SYNTHROID IV SCH (06:03)
[2017-04-10 06:28] LABS: HEMATOCRIT 41.3 % (42.0-52.0); HEMOGLOBIN 13.4 g/dL (14.0-18.0); MCH 30.9 PG (27-31); MCHC 32.4 g/dL (33-37); MCV 95.4 FL (81-99); MPV 10.9 FL (7.4-10.4); RBC 4.33 XMIL (4.7-6.1)
[2017-04-10 06:34] LABS: ALBUMIN 3.1 g/dL (3.5-5.0); CALCIUM 8.5 mg/dL (8.8-10.2); POTASSIUM 4.6 mmol/L (3.5-5.1)
--- NOTE | 2017-04-10 07:53 | PROGRESS NOTE ---
DATE: 04/08/2017 INCOMPLETE REPORT-DICTATION BEGINS HERE SUBJECTIVE: Patient had an event this morning where he became unresponsive. He had a CAT assist called. Patient underwent imaging to rule out any stroke. Thus far has been negative. He has remained lethargic, basically unresponsive and was transferred to the ICU for further treatment. The patient's family state that yesterday evening around 9 o'clock at night he started shaking more and becoming a little more confused. Thus far, all workup has been negative. The family denies him receiving any outside medication. OBJECTIVE: Vital Signs: Temperature 98.7 degrees, pulse 151, respiratory rate 18, blood pressure 123/92, intake 470 mL, output none. PHYSICAL EXAMINATION: General: This is an elderly gentleman resting in bed. He is obtunded. He will turn his head ever so slightly to a sternal rub, but does not open his eyes and does not verbalize. HEENT: Normocephalic, atraumatic. MERVIN. Conjunctivae pink. Neck : Supple. Trachea midline. Trace JVD. Cardiovascular: Irregular rhythm. He is in rapid atrial fibrillation with RVR noted on the monitor with a rate in the 140s to 150s varying. On a Cardizem drip. Repiratory: Clear bilaterally. No increased work of breathing. Abdomen: Soft, positive bowel sounds. : Not inspected. Minimal void with hemodialysis assist. Extremities: No clubbing, cyanosis or edema. Integementary: Warm and dry. No rashes. LABS: Sodium 138, potassium 4.4, CO2 20, BUN 46, creatinine 8.4 IMAGING: CT of head negative thus far. PLAN: 1. ESRD management. Tomorrow is his routine dialysis day. We will adjust dialysis bath and fluid removal as indicated. 2. AMS. Had an episode of weakness and shaking last night. Obtunded this a.m. Imaging thus far negative. Additional work up in progress. 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 His labs are well below that threshold. Followed by primary. Understand neurology consult has been ordered. 3. Electrolytes, acid base balance. In target. 4. Afib with RVR followed by primary and cardiology. Dictated by MELVA Hernandez for Adria Garica MD cc: Adria Garcia MD [facility]
--- NOTE | 2017-04-10 08:40 | PROGRESS NOTE ---
DATE: 04/10/2017 DATE AND TIME SEEN: 04/10/2017 at 0650 hours. SUBJECTIVE: Mr. Byrne is resting quietly in bed. He is alert and oriented x3. He denies any pain. No increased work of breathing. OBJECTIVE: His most recent vital signs: Last temperature 98.3 degrees, blood pressure 131/79, heart rate 91, respirations 16. He is on 2 L nasal cannula. Last recorded saturation was 92% to 97%. He has had 175 in; he has had 2020 out with 2 L on dialysis. LABS: Sodium 139, potassium 4.6, chloride 92, CO2 17. BUN 37, creatinine 7.1, glucose 82. Anion gap 30, calcium 8.5, phosphorus 8.6, albumin 3.1. White count 3.43, hemoglobin 13.4, hematocrit 41.3 with a platelet count of 94. PHYSICAL EXAMINATION: General: This is a 71-year-old white male. He is resting in bed. He appears chronically ill. He is in no acute distress. Skin: Warm and dry. HEENT: Normocephalic, atraumatic. Conjunctivae pink. He has MERVIN. Mucous membranes moist. Neck: Supple. Trachea midline. No JVD. Cardiovascular: Irregular rate and rhythm. He appears to be in atrial fibrillation on the monitor. He has a soft systolic murmur. Lungs: Clear to auscultation anterior. Equal excursion on O2. Abdomen: Round, soft, nontender. Positive bowel sounds. Extremities: He has right lower extremity venous stasis with some woody appearance to the right versus the left. No edema noted. Neurological: Patient is improved. He is alert and oriented x3. ASSESSMENT AND PLAN: 1. End-stage renal disease. Patient had his routine dialysis yesterday; we will plan for dialysis in the morning if he remains in the hospital. 2. Altered mental status. Etiology was unclear. Patient is alert and oriented today. We will defer to his primary care team. 3. Electrolytes and acid-base balance. These are at target. 4. Atrial fibrillation with rapid ventricular response. He is currently on diltiazem; he is rate controlled. I would like to thank you for allowing us to follow with this patient. Seen, data reviewed, discussed with Anthony Hayes on 04/10/17. I agree with the above assessment and plan of care. rg Dictated by MELVA Rios for Adria Garcia MD cc: MELVA Rios MD [facility]
--- NOTE | 2017-04-10 08:56 | Diag Imaging Result Doc PS360 ---
EXAM: CT THORAX W/O CONTRAST INDICATION: possible left pleural effusion COMPARISON: 01/11/2017 FINDINGS: There is a large left pleural effusion and a small right effusion. Left effusion is very similar in size as compared to the previous study. The right effusion may actually be slightly smaller than the previous study. There is atelectasis at both lung bases, more prominent on the left. There are a few calcified granulomata bilaterally that are stable. There are several calcified mediastinal and hilar lymph nodes indicating prior granulomatous disease. There is cardiomegaly that is approximately stable. Limited views of the upper abdomen reveal at least moderate ascites tracking around the liver and the spleen. There are few calcified stones in the gallbladder lumen. IMPRESSION: 1.Large left pleural effusion and a small right effusion with associated atelectasis bilaterally. 2.Stable cardiomegaly. 3.At least moderate ascites. 4.Other incidental/nonacute findings detailed above. Electronically signed by Hussain Austin 04/10/2017 8:54 AM
[2017-04-10] MEDS: SOLU-CORTEF IV SCH ×2 (09:17→22:05)
[2017-04-10] MEDS: LOPRESSOR PO SCH ×2 (09:19→20:53)
[2017-04-10] MEDS: HEPARIN SUBQ SCH ×2 (09:19→20:53)
[2017-04-10] MEDS: ASPIRIN EC PO SCH (09:19)
--- NOTE | 2017-04-10 11:13 | CONSULTATION ---
DATE OF CONSULTATION: 04/10/2017 SOURCE OF CONSULT: The patient is seen in consultation at the request of Dr. Ridley. REASON FOR EVALUATION: Altered mental status, question of stroke. HISTORY OF PRESENT ILLNESS: This is a 71-year-old, right-handed male dialysis patient also with history of Crohns and atrial fibrillation, who was admitted on 04/06 with altered mental status and slurred speech, as well as shaking of the hands. The also relays a story as well as the patient. They report that they were seen on 04/04 in the emergency department here because he was at dialysis and his blood pressure dropped, and he had some confusion and slurred speech. He was discharged from the emergency room that day. She reports that he continued to have the symptoms at home and gradually worsened with interval development of the bilateral hand shaking. They subsequently brought him back in on 04/06 and he was admitted. On admission, he had an MRI of the brain as well as an MRA of the head and neck that did not show any acute findings. He also had a head CT that did not show any acute findings. The reports that he had dialysis upon admission and was noted to be much better following dialysis. It appears that overnight on the the states that was gradually having reappearance of the symptoms. She tried to arouse him from sleep and he was very difficult to arouse. He was transferred to the ICU. A repeat head CT was obtained and again was negative for acute findings. The patient was dialyzed again and she reports that again he improved and has been improved since. Lab studies also reveal slightly elevated AST on admission, elevated alkaline phosphatase, and an ammonia of 75. His TSH is also elevated with a normal free T4. They denied any head trauma. There may have been some fever, otherwise denying other symptoms. PAST MEDICAL HISTORY: 1. End-stage renal disease on hemodialysis. 2. Crohn disease with surgeries related to this. 3. Hypertension. 4. Atrial fibrillation. 5. Kidney stones. 6. Peripheral artery disease. 7. Benign prostatic hypertrophy. 8. Restless leg syndrome. FAMILY HISTORY: Colon cancer in the family, as well as heart disease. SOCIAL HISTORY: He is a former smoker. No alcohol. No drugs. He is and lives with his in [place]. ALLERGIES: To ciprofloxacin. MEDICATIONS: 1. Aspirin 81 mg daily. 2. Cardizem. 3. Synthroid. 4. Metoprolol otherwise noted. REVIEW OF SYSTEMS: Balance of 12 was conducted and is otherwise negative, except that which is mentioned in the HPI. PHYSICAL EXAMINATION: Vital Signs: Blood pressure 101 to 127 over 60s to 80s. Pulse 70s to 90s. He is afebrile. He is 94% on room air. General: He is in no acute distress. He is lying in the bed. is at bedside. Neck: Supple. No carotid bruits. Cardiovascular: Irregular. No murmurs appreciated. Lungs: Pretty clear anteriorly. Abdomen: Soft, nontender. Extremities: Without edema. Poor circulation noted. He is missing his right fifth digit. Neurologic Exam: Mental status: He is awake and oriented. He is appropriate and conversant. He is attentive and cooperative. He does seem at times to have very mildly slowed responses. Cranial nerves: His pupils are equal, round, and reactive to light. Ocular movements are intact. Gaze is conjugate. Face is symmetric with equal activation. Facial sensation is intact. Visual campos are intact to direct confrontational testing. Palate and uvula elevate symmetrically. Tongue is midline. Shoulder shrug is full. His strength is equal in all extremities and 5/5. He has a length- dependent sensory loss to vibration and temperature in the lower extremities up to about the mid [place] level bilaterally. The sensory exam is otherwise symmetric. His reflexes are diminished at the ankles and wrists bilaterally, 2+ elsewhere and symmetric. Coordination is intact. I did not assess his gait. DIAGNOSTICS: Reviewed. His white count, hemoglobin, hematocrit and platelets are all low. Sodium of 139, potassium 4.6, BUN is elevated ranging in the 30s to 50s ( currently 37), creatinine currently 7.1. Glucose 82, calcium 8.5, phosphorus 8.6, magnesium 1.6. AST 39 on admission, ALT 28, alkaline phosphatase elevated currently 154 and was 190. Ammonia is elevated at 75. B 12 is greater than 2000, folate is 20. TSH elevated at 11.55 with a normal free T4. MRI of the brain, MRA of the head and neck all were personally reviewed. There are no acute findings. No evidence of stroke. Head CT on 04/06 as well as a repeat head CT on 04/08 were personally reviewed. There are no acute findings. ASSESSMENT AND PLAN: A 71-year-old male dialysis patient with Crohns and atrial fibrillation here with waxing and waning altered mental status with slurred speech and shaking of the hands. Currently improved. His states he improved after his dialysis sessions both times since he has been here. Imaging has been negative for stroke: 1. Encephalopathy, likely toxic metabolic. Again seems to improve after dialysis which is reassuring. Also of note, his ammonia is elevated. His exam is nonfocal which is reassuring. I agree with obtaining the routine electroencephalogram to evaluate for subclinical seizure activity given the waxing and waning, although this can also be seen just as a metabolic process. No further recommendations at this time. Thank you for this consult. Will follow. cc: Sharon Zamora MD [facility]
--- NOTE | 2017-04-10 11:54 | PROGRESS NOTE ---
DATE: 04/10/2017 SUBJECTIVE: Today Mr. Byrne referred to be doing fine. He looks a whole lot more alert and oriented than what I was told. OBJECTIVE: Vital signs: Blood pressure is 124/84, pulse of 91, respirations 13 , temperature 98.3 degrees. Patient is saturating 94% on room air. General: Mr. Byrne is a 71- year-old male. He is in bed. Does not seem to be in any remarkable distress. HEENT: Mucosa is pink and moist. Anicteric. Acyanotic. Neck: Supple. There is bilateral JVD. Chest: Air entry is bilaterally reduced. There is some dullness to percussion to the posterior lung campos, more so on the left than the right. Cardiovascular: Irregularly irregular but rate controlled. No murmurs. Abdomen: Soft. Extremities: No pedal edema. Distal pulses are remarkably reduced more on the right than the left and there is some old stasis dermatitis changes on the right leg. LABORATORY DATA: WBC is 3.45, hemoglobin is 13.4, platelet count is 94,000. Chemistry: Sodium is 139, potassium is 4.6, chloride is 96, bicarb is 17, BUN is 37, creatinine is 7.1. IMAGING STUDIES: A CT scan of the chest was done today which showed a large left pleural effusion and small right pleural effusion with associated atelectasis bilaterally. A limited echocardiogram which was done on the shows an ejection fraction of 35 to 40%. An EKG on admission did reveal atrial fibrillation with rapid ventricular response. Patient is currently rate controlled. ASSESSMENT: 1. Altered mental status. Likely from global encephalopathy; etiology is unknown. 2. Volume overload. Likely due to underlying congestive heart failure. 3. Congestive heart failure with ejection fraction of 35 to 40%. That was decompensated due to atrial fibrillation with rapid ventricular response. 4. Atrial fibrillation with rapid ventricular response on presentation. Currently rate controlled. 5. End-stage renal disease on hemodialysis. 6. Large left Pleural Effusion PLAN: I think Mr. Byrne is doing a whole lot better. He seems to have a very large right left- sided pleural effusion which I think needs to be tapped out. Therefore, I put in a consult for IR to drain this and I think that will eventually help with his general medical condition. He is clinically stable so we will move him from the ICU to a regular floor. Start him on renal diet. Get PT to start working with him and eventually plan for his discharge soon. Review: pleural fluid analysis glucose < 2 PH : 7.0 these are consistent with complicated parapneumonic effusion Will consult Pulmonary medicine. cc: Yoel Ridley MD [facility]
[2017-04-10 12:40] LABS: INR 1.6; PROTIME 17.3 Seconds (9.2-11.7)
--- NOTE | 2017-04-10 14:38 | Diag Imaging Result Doc PS360 ---
EXAM: CHEST-2 VIEWS HISTORY: POST U/S THORACENTESIS TECHNIQUE: AP upright inspiratory and expiratory at 1415 COMMENT: The left pleural effusion has decreased in volume status post thoracentesis. There is no evidence of pneumothorax. The right lung appears clear than it did on the previous study of 04/09/2017. IMPRESSION: Improved left pleural effusion and pulmonary edema. No evidence of pneumothorax. Electronically signed by Victoriano Gamble 04/10/2017 2:35 PM
--- NOTE | 2017-04-10 14:50 | Diag Imaging Result Doc PS360 ---
EXAM: THORACENTESIS W/IMAGE GUIDANCE HISTORY: large left Pleural effusion TECHNIQUE: Left thoracentesis with ultrasound guidance. COMMENT: The risks and benefits the procedure including the possibility of bleeding infection pneumothorax or reaction to lidocaine were discussed with the patient and he agreed. Following sterile preparation of the skin posteriorly over the left chest and administration 1% lidocaine to the skin and deeper soft tissues the thoracentesis catheter was placed and subsequently 1.6 L of straw-colored fairly clear fluid was drained. This was performed with the syringe pump technique. There is no evidence of pneumothorax following the procedure. IMPRESSION: Successful left thoracentesis. Electronically signed by Victoriano Gamble 04/10/2017 2:48 PM
[2017-04-10 15:42] LABS: SPECIMEN PLEURAL FLUID
[2017-04-10 16:18] LABS: DIFF NEEDED? YES; WBC BF 46 /cumm
[2017-04-10 16:19] LABS: MONOS 96 %; POLYS 4 %
[2017-04-10] MEDS: LOMOTIL PO PRN (20:53)
[2017-04-10] MEDS: PROTONIX IV SCH (20:53)
[2017-04-10] MEDS: SODIUM CHLORIDE 0.9% INJ SCH (20:53)
[2017-04-11] MEDS: SODIUM CHLORIDE 0.9% INJ PRN (06:05)
[2017-04-11] MEDS: SYNTHROID IV SCH (06:06)
[2017-04-11] MEDS ORDERED: TIGHT: 0.2 ML/HR MISC PRN (06:52)
[2017-04-11] MEDS ORDERED: NS 2,000 ML MISC PRN (06:52)
[2017-04-11] MEDS ORDERED: HEPARIN IV PRN (06:52)
[2017-04-11 07:15] LABS: HEMATOCRIT 41.7 % (42.0-52.0); HEMOGLOBIN 13.6 g/dL (14.0-18.0); MCHC 32.6 g/dL (33-37); MCV 91.9 FL (81-99); MPV 11.7 FL (7.4-10.4); RBC 4.54 XMIL (4.7-6.1)
[2017-04-11 07:45] LABS: ALBUMIN 2.9 g/dL (3.5-5.0); CALCIUM 8.1 mg/dL (8.8-10.2); POTASSIUM 3.9 mmol/L (3.5-5.1)
--- NOTE | 2017-04-11 09:24 | PROGRESS NOTE ---
DATE: 04/11/2017 SUBJECTIVE: Mr. Byrne is resting quietly in bed. He has no complaints. Denies chest pain or increased work of breathing. OBJECTIVE: His most recent vital signs: Temperature 97.5 degrees, blood pressure 106/76, heart rate 93, respirations are 20. He is on room air. Last recorded saturation 98% . He has had 480 in with 0 out with need for dialysis. LABS: Sodium 136, potassium 3.9, chloride 90, CO2 18, BUN 55, creatinine 8.2, glucose 91, anion gap 28. Calcium 8.1, phosphorus 9.9, albumin 2.9. White count 6.34, hemoglobin 13.6, hematocrit 41.7 with a platelet count of 101. PHYSICAL EXAMINATION: General: This is a 71-year-old white male. He is currently resting in bed. He is in no acute distress. Head of the bed is elevated. Skin: Warm and dry. HEENT: Normocephalic, atraumatic. Conjunctiva is pale. He has MERVIN. Mucous membranes are moist. Neck: Supple. Trachea midline. No JVD. Cardiovascular: Irregular rate and rhythm. He remains on atrial fibrillation on the monitor. He has a soft systolic murmur. Lungs: Clear to auscultation anterior. Equal excursion. Abdomen: Round, soft, nontender. Positive bowel sounds. Extremities: Has right lower extremity venous stasis with some woody appearance to the right versus the left lower extremities. No edema to the lower extremities. He does have weeping edema to the left upper arm below his AV fistula as noted. Neurological: Patient is alert and oriented x3. ASSESSMENT AND PLAN: 1. End-stage renal disease. Patient is due for his routine dialysis treatment today. We will place him on a 3 K bath. He is to dialyze for 3-1/2 hours. We will attempt to pull him to his dry weight. 2. Electrolytes and acid-base balance. These remain stable. 3. Anemia. This is at target. 4. Altered mental status. Patient is awake and alert at this time. 5. Status post left thoracentesis per ultrasound guidance. Patient has had 1.6 L removed of straw-colored fluid. He states that he is feeling much better. This is followed by the primary care team. 6. Encephalopathy. Resolved. I would like to thank you for allowing us to follow with this patient. Seen, data reviewed, discussed with Anthony Hayes on 04/11/17. I agree with the above assessment and plan of care. rg Dictated by MELVA Rios for Adria Garcia MD cc: MELVA Rios MD [facility]
--- NOTE | 2017-04-11 11:01 | PROGRESS NOTE ---
DATE: 04/11/2017 SUBJECTIVE: Mr. Byrne is completing dialysis this morning on my rounds. OBJECTIVE: He is awake, alert, bright, attentive. He seems much improved compared to the description in previous notes. Dr. Zamora saw him for Neurology consult yesterday. ASSESSMENT AND PLAN: He appears to have a baseline dementia with recent superimposed toxic/metabolic disturbance causing transiently significantly worse encephalopathy. That appears to be resolving. I do not have any new suggestion from a neurologic standpoint today. Thanks for allowing us to follow Mr. Byrne. cc: MD SARAH Sofia III
[2017-04-11] MEDS: HEPARIN SUBQ SCH ×2 (14:57→20:08)
[2017-04-11] MEDS: SOLU-CORTEF IV SCH ×2 (15:01→22:27)
[2017-04-11] MEDS: LOPRESSOR PO SCH ×2 (15:02→20:14)
[2017-04-11] MEDS: ASPIRIN EC PO SCH (15:02)
--- NOTE | 2017-04-11 16:32 | PROGRESS NOTE ---
DATE: 04/11/2017 SUBJECTIVE: Today Mr. Byrne refers to be doing a little better, but he still has excessive weakness. OBJECTIVE: Vital signs: Blood pressure is 100/65, pulse of 132, respirations 18, temperature 97.6 degrees. General: Mr. Byrne is a 71-year-old male. He looks older than his age. He is in bed, not in any distress. HEENT: Mucosa is slightly dry. Anicteric. Acyanotic. Neck: Supple. Chest: Air entry is bilaterally reduced. A few bibasilar crepitations. Cardiovascular: Irregularly irregular, but rate controlled. Abdomen: Soft. There is an old midline surgical scar. Extremities: No pedal edema. There are some changes on the right suggestive of stasis dermatitis. 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 LABORATORY DATA: WBC is 6.34, hemoglobin is 13.6, platelet count of 101. Chemistry was reviewed consistent with end-stage renal disease. ASSESSMENT: 1. Altered mental status likely from toxic metabolic encephalopathy. 2. Fluid overload. 3. Bilateral pleural effusions, left more than right, status post thoracentesis 1.6 removed yesterday. The fluid analysis had a pH of 7.0 and glucose less than 2, which would have been consistent with a complicated effusion. However, discussed this with Dr. Gary, the algologist on board. He thinks the low glucose is probably a lab error and he will just observe. 4. Atrial fibrillation with rapid ventricular response on presentation, currently rate controlled. 5. End-stage renal disease on hemodialysis. 6. Congestive heart failure with ejection fraction of 35% to 40%. I think this got decompensated with the atrial fibrillation rapid ventricular response. 7. Hypothyroidism. The patient is currently on levothyroxine. 8. Protein calorie malnutrition. Patient is on renal diet. We will add some Nepro supplements. 9. Generalized weakness. The patient is getting physical therapy. GENERAL PLAN: I think the main reason why Mr. Byrne came to the hospital because of altered mental status, which we think is a combination of metabolic derangement. His sensorium is a lot improved. He had it tapped yesterday which I discussed the findings with Dr. Gary. The patient continues to be remarkably weak, so he is going to continue with physical therapy, and I think we will be able to let him go to a rehab within 24-48 hours. cc: Yoel Ridley MD
[2017-04-11] MEDS: LOMOTIL PO PRN (18:07)
[2017-04-11] MEDS: SODIUM CHLORIDE 0.9% INJ SCH ×2 (20:09→22:27)
[2017-04-11] MEDS: PROTONIX IV SCH (20:09)
[2017-04-12] MEDS: SODIUM CHLORIDE 0.9% INJ PRN (06:17)
[2017-04-12] MEDS: SYNTHROID IV SCH (06:17)
[2017-04-12 06:37] LABS: HEMATOCRIT 40.2 % (42.0-52.0); MCH 30.4 PG (27-31); MCHC 32.3 g/dL (33-37); MCV 94.1 FL (81-99); MPV 11.3 FL (7.4-10.4); RBC 4.27 XMIL (4.7-6.1)
[2017-04-12 06:51] LABS: ALBUMIN 3.1 g/dL (3.5-5.0); CALCIUM 7.4 mg/dL (8.8-10.2); POTASSIUM 3.6 mmol/L (3.5-5.1)
--- NOTE | 2017-04-12 07:55 | Diag Imaging Result Doc PS360 ---
EXAM: CHEST-2 VIEWS HISTORY: abnormal exam TECHNIQUE: PA and lateral chest COMMENT: There is a left pleural effusion. This may be partially loculated. There is slight blunting of the right costophrenic angle which may also indicate a pleural effusion. There is likely atelectasis versus pneumonia in the left lower lobe. Overall, this has not changed appreciably since 04/10/2017. There has clearly been improvement since 04/09/2017, however. IMPRESSION: Left lower lobe atelectasis and left pleural effusion. Minimal right pleural effusion. Electronically signed by Victoriano Gamble 04/12/2017 7:53 AM
[2017-04-12] MEDS: ASPIRIN EC PO SCH (08:25)
[2017-04-12] MEDS: LOPRESSOR PO SCH ×2 (08:26→20:19)
[2017-04-12] MEDS: HEPARIN SUBQ SCH ×2 (08:26→20:19)
[2017-04-12] MEDS: LOMOTIL PO PRN (08:39)
--- NOTE | 2017-04-12 09:29 | PROGRESS NOTE ---
DATE: 04/12/2017 SUBJECTIVE: Mr. Colbert is resting quietly on the side of the bed. His is at his bedside. He states that his legs are weak. Otherwise denies chest pain or increased work of breathing. OBJECTIVE: His most recent vital signs are temperature 98.2 degrees, blood pressure 111/84, heart rate 99, respirations 18. He is on room air at 98%. He has had 480 in. 2 L off on dialysis. LABORATORY DATA: Sodium 137, potassium 3.6, chloride 91, CO2 24, BUN 39, creatinine 6.3, glucose 113, anion gap 22, calcium is 7.4, phosphorus 7.2, albumin 3.1. White count 4.23, hemoglobin of 13, hematocrit 40.2 with a platelet count of 91,000. PHYSICAL EXAMINATION: General: This is a 71-year-old white male. He is currently resting on the side of the bed. He is in no acute distress. Skin: Warm and dry. HEENT: Normocephalic, atraumatic. Conjunctivae pale. He has MERVIN. Mucous membranes moist. Neck: Supple. Trachea midline. No JVD. Cardiovascular: Irregular rate and rhythm. He is slightly tachycardic today. He has an S4 with a soft systolic murmur. Lungs: Clear to auscultation anteriorly. Equal excursion with diminished lung sounds to the left base. He is on room air. Abdomen: Soft, round, nontender. Positive bowel sounds. Extremities: He has a fistula to the left upper arm. 1+ edema below that and has serous drainage noted to the Band-Aid. He does continue with venous stasis to bilateral extremities right greater than left with some woody appearance to the right lower extremity. No clubbing or cyanosis. Neurological: Alert and oriented x3. ASSESSMENT AND PLAN: 1. End-stage renal disease. Patient is due for his routine dialysis treatment in the a.m. No indications for intervention at this time. 2. Electrolytes and acid-base balance. These remain stable. 3. Anemia. This is in target. 4. Altered mental status. This has improved and resolved. I would to thank you for allowing us to follow with this patient. Seen, data reviewed, discussed with Anthony Hayes on 04/12/17. I agree with the above assessment and plan of care. rg Dictated by MELVA Rios for Adria Garcia MD cc: MELVA Rios MD [facility]
[2017-04-12] MEDS: SOLU-CORTEF IV SCH ×3 (09:40→23:08)
--- NOTE | 2017-04-12 11:01 | EEG REPORT ---
DATE: 04/10/2017 REFERRING PHYSICIAN: Dr. Brown. EEG #: [id number]. OPTOMETRIC TECH: Nupur Nixon. BACKGROUND INFORMATION: Technique: A digitally recorded EEG is obtained using one additional channel for EKG. HISTORY OF PRESENT ILLNESS: This is a 71-year-old, right-handed male, dialysis patient who also has a history of Crohn's disease who presents with altered mental status and slurred speech. EEG is ordered to detect evidence of possible seizures. Medications: Aspirin, diltiazem, Lopressor, Protonix, Solu-Cortef, Synthroid, Xopenex, Atrovent. Zofran and prednisone. EEG FINDINGS: A posterior dominant alpha rhythm is notably absent. The background consists of theta more than delta frequency slowing. There are no faster frequencies. No focal slowing. No epileptiform discharges. No seizures. Hyperventilation was not performed. Photic stimulation did not induce a photic driving response. The patient is awake and drowsy but no stage II sleep is seen. The EKG reveals an irregular R-R interval. IMPRESSION AND RECOMMENDATIONS: Abnormal routine EEG due to: 1. Moderate generalized background slowing indicative of a moderate nonspecific encephalopathy. Generalized slowing is a nonspecific finding that can be seen in processes that diffusely affect the cerebrum, including toxic, metabolic, post hypoxic, pharmacologic or infectious conditions. Clinical correlation is advised. 2. No epileptiform abnormalities or seizures were noted. This does not rule out an underlying seizure disorder. cc: MD Marleen Hauser MD [facility] CENTERAmanda
[2017-04-12] MEDS ORDERED: VITAMIN D PO SCH (13:00)
--- NOTE | 2017-04-12 13:26 | PROGRESS NOTE ---
DATE: 04/12/2017 SUBJECTIVE: Today Mr. Byrne refers to be doing a little better. He was able to participate in physical therapy session. He thinks he is getting a little stronger, but still feels weak. OBJECTIVE: Vitals: Blood pressure is 110/81, pulse of 110, respiration is 16, temperature 97.4 degrees. General: Mr. Byrne is a 71-year-old male. He is in bed, not seemingly distressed. HEENT: Mucosa is pink and moist. Anicteric. Acyanotic. Neck: Supple. Chest: Good air entry bilateral. Cardiovascular: Irregularly irregular, but rate controlled. Abdomen: Soft. There is an old midline surgical scar. Extremities: No pedal edema, but there are some old changes on the right lower extremity suggestive of stasis dermatitis. WEAVE DEFECT CHARTING CLERK: Patient is alert and oriented x4. Skin: Has chronic changes very consistent with end-stage renal disease on dialysis. LABORATORY DATA: WBC is 4.21, hemoglobin is 13.0, platelet count of 91. Sodium is 137, potassium is 3.6, chloride 91, bicarbonate is 24, calcium is 7.4, phosphorus is 7.2. PTH of 591. ASSESSMENT: 1. Altered mental status likely from toxic metabolic encephalopathy. Patient's sensorium has completely improved. 2. Bilateral pleural effusions, left more than right, status post thoracentesis. 3. Atrial fibrillation with rapid ventricular response on presentation. This is controlled. 4. Congestive heart failure. Ejection fraction of 35% to 40%. 5. Hypothyroidism. Patient is currently on levothyroxine. 6. Protein calorie malnutrition. 7. Generalized weakness likely due to underlying bone and mineral disease associated with end- stage renal disease. 8. Secondary hyperparathyroidism. We will start the patient on cinacalcet. 9. Vitamin D deficiency. We will start the patient on ergocalciferol. 10. Hyperphosphatemia. We will start the patient on a phosphate binder. The patient is also being followed by nephrology. Will be pending their recommendations on the bone mineral disease associated with end-stage renal disease. PLAN: In general, I think Mr. Byrne is doing better. Mentation has improved. We plan to discharge him to rehabilitation. He has chosen to go to [place]. Will be waiting on the social service technician final arrangement for bed availability. cc: Yoel Ridley MD
--- NOTE | 2017-04-12 14:39 | PROGRESS NOTE ---
DATE: 04/12/2017 SUBJECTIVE: Mr. Byrne continues to be doing better. He has had another dialysis in the interim. He has also participated in physical therapy and has walked down the leo. There are plans for discharge to a rehab facility and [facility]. OBJECTIVE: Vital signs: Reviewed in the chart. He is sitting up in bed, in no acute distress. Has eaten lunch. is at bedside. HEENT: His mucous membranes are moist. He is anicteric. Neck: Supple. Extremities: No edema. Neurologic: Mental status: He is alert and fully oriented. His speech is fluent. His attention and concentration are intact. Naming is intact. Repetition is intact. Cranial nerves: Pupils are equal and reactive. Conjugate gaze. Ocular movements are intact. Face is symmetric with equal activation. No dysarthria. Motor exam: He is nonfocal. Moving all extremities equally. Coordination: Does not appear to have issues with coordination. DIAGNOSTICS: White count is 4.2, hemoglobin 13, hematocrit 40, platelets 91,000. Sodium 137, potassium 3.6, BUN 39, creatinine 6.3, calcium 7.4, phosphorus 7.2. EEG was personally reviewed. It showed a moderate generalized nonspecific encephalopathy. No epileptiform abnormalities or seizures were noted. ASSESSMENT AND PLAN: A 71-year-old right-handed male dialysis patient, also with history of Crohn's and atrial fibrillation, admitted with waxing and waning mental status with slurred speech and shaking of the hands. Currently improved. Imaging has been negative. Encephalopathy, likely toxic metabolic. Improved, per , with each dialysis session. Again of note, his ammonia is elevated. The EEG showed nonspecific moderate generalized slowing, which is consistent with encephalopathy. I did not see evidence of propensity for seizure on this one particular study. Again, his encephalopathy is likely toxic metabolic and has significantly improved. No further recommendations. Thank you for this consult. We will be available as needed. cc: Sharon Zamora MD
[2017-04-12] MEDS: SENSIPAR PO SCH (15:04)
[2017-04-12] MEDS ORDERED: STERILE WATER INJ. ONE (17:27)
[2017-04-12] MEDS: PHOSLO PO SCH (17:53)
[2017-04-12] MEDS: SODIUM CHLORIDE 0.9% INJ SCH (20:20)
[2017-04-12] MEDS: PROTONIX IV SCH (20:20)
[2017-04-13] MEDS: SYNTHROID IV SCH (06:18)
[2017-04-13] MEDS: SODIUM CHLORIDE 0.9% INJ PRN (06:18)
[2017-04-13] MEDS ORDERED: NS 2,000 ML MISC PRN (06:44)
[2017-04-13] MEDS ORDERED: HEPARIN IV PRN (06:44)
[2017-04-13] MEDS ORDERED: TIGHT: 0.2 ML/HR MISC PRN (06:44)
[2017-04-13 07:41] LABS: HEMATOCRIT 42.5 % (42.0-52.0); MCH 30.2 PG (27-31); MCHC 32.9 g/dL (33-37); MCV 91.8 FL (81-99); MPV 11.3 FL (7.4-10.4); RBC 4.63 XMIL (4.7-6.1)
[2017-04-13 08:22] LABS: ALBUMIN 3.4 g/dL (3.5-5.0); CALCIUM 7.6 mg/dL (8.8-10.2); POTASSIUM 3.8 mmol/L (3.5-5.1)
[2017-04-13] MEDS ORDERED: HEPARIN ONE (08:55)
[2017-04-13] MEDS ORDERED: NS 2,000 ML ONE (08:55)
--- NOTE | 2017-04-13 11:28 | PROGRESS NOTE ---
DATE: 04/13/2017 Today Mr. Byrne referred to be doing fine. He was waiting to go for dialysis. OBJECTIVELY: Vitals: Blood pressure is 117/85, pulse of 124, respirations is 14, temperature 94.4 degrees. General: Mr. Byrne is a 71-year-old male. He was in bed. He did not seem to be in any remarkable distress. HEENT: Mucosa is pink and moist. Anicteric. Acyanotic. Neck: Supple. Chest: Good air entry bilateral. Cardiovascular: Irregularly irregular heart rate. Slightly tachycardic. Abdomen: Soft. There is an old midline surgical scar. Extremities: No pedal edema. HOME HEALTH CLINICAL SUPERVISOR: Patient is alert and oriented x4. Skin: Patient has chronic changes consistent with endstage renal disease. LABORATORY DATA: WBC 6.37, hemoglobin is 14.1, platelet count of 104,000. Chemistry is reviewed. Sodium is 134, potassium 3.8, chloride is 89, bicarb is 22, BUN is 56, creatinine 7.0 consistent with end-stage renal disease. The patient's phosphorus is 8.4. ASSESSMENT: 1. Altered mental status due to metabolic encephalopathy. This is completely improved. 2. Bilateral pleural effusions. Left more than right status post thoracentesis. 3. Atrial fibrillation with RVR on presentation. 4. Congestive heart failure. Ejection fraction of 35-40%. 5. Hypothyroidism. The patient is on levothyroxine. 6. Protein calorie malnutrition. 7. Generalized weakness likely due to underlying bone and mineral disease associated with end- stage renal disease. 8. Secondary hyperparathyroidism. Patient is currently on cinacalcet. 9. Vitamin D deficiency. We will continue replacing. 10. Hyperphosphatemia. Patient has been started on phosphate binders. In general, I think Mr. Byrne is doing relatively fine. Was evaluated yesterday by physical therapy. Was able to ambulate about 100 feet with some contact guard assistance. We will continue with the physical therapy. Social work is also working on placement. I think the patient will need more physical rehabilitation to improve on his musculoskeletal strength. cc: Yoel Ridley MD
--- NOTE | 2017-04-13 11:44 | PROGRESS NOTE ---
DATE: 04/13/2017 SUBJECTIVE: Mr. Byrne was resting quietly in bed. States that he has continued weakness. He is waiting for placement to [facility] in [place] and will continue with outpatient dialysis treatments at that time after discharge. He denies any chest pain or increased work of breathing. OBJECTIVE: Most recent vital signs: Temperature 94.4 degrees, blood pressure 117/85, respirations 14, heart rate 124. He has had 598 in, he has had 0 recorded out with dialysis assist. LABORATORY DATA: This a.m. sodium 134, potassium 3.8, chloride 89, CO2 22, BUN 56, creatinine 7.6, glucose 82. His anion gap is 23, calcium 7.6, phosphorus 8.8, albumin 3.4 , his PTH is 591, white count 6.37, hemoglobin 14, hematocrit 42.5 with a platelet count of 104, 000. His vitamin D hydroxy is noted at 5. He had a nongenital cytology smear report for referred testing. Report is not available at this time. Pleural fluid Gram stain- performed a thoracentesis , showed no bacteria. PHYSICAL EXAMINATION: General: This is a 71-year-old white male. He is currently resting in bed. Appearance: Chronically ill. He is in no acute distress. Skin: Warm and dry. HEENT: Normocephalic, atraumatic. Conjunctiva is pale. He has MERVIN. Mucous membranes moist. Neck: Supple. Trachea midline. No JVD. Cardiovascular: Regular rate and rhythm. Positive S4 with a soft systolic murmur. Lungs: Clear to auscultation anteriorly. Equal excursion on room air. Abdomen: Soft, nontender. Positive bowel sounds. Extremities: Have no edema to the lower extremities. He continues with the left upper arm fistula that is dry and intact. He does continue with a slight fluid fill pocket to the left elbow that has a dressing over a small laceration. Integumentary: As mentioned above with no rashes or lesions evident. Neurological: Alert and oriented x3. ASSESSMENT AND PLAN: 1. End-stage renal disease. Patient is scheduled for his dialysis treatment today. We will place him on a 3 K bath. He is to dialyze for 3.5 hours. We will attempt to pull him to his dry weight. 2. Electrolytes and acid-base balance. Patient continues with mild hyponatremia with correction on dialysis. 3. Acidosis. This is stable. 4. Anemia. This is at target. 5. Altered mental status. This has resolved. 6. Continued weakness. Patient is scheduled for discharge. They are attempting to place the patient at [facility] for rehab. I would to thank you for allowing us to follow with this patient. Seen, data reviewed, discussed with Anthony Hayes on 04/12/17. I agree with the above assessment and plan of care. rg Dictated by MELVA Rios for Adria Garcia MD cc: MELVA Rios MD [facility]
[2017-04-13 13:49] VITALS: BP 125/85
[2017-04-13] MEDS: SENSIPAR PO SCH (14:32)
[2017-04-13] MEDS: SOLU-CORTEF IV SCH (14:33)
[2017-04-13] MEDS: PHOSLO PO SCH ×2 (14:33→14:39)
[2017-04-13] MEDS: HEPARIN SUBQ SCH (14:33)
[2017-04-13] MEDS: ASPIRIN EC PO SCH (14:37)
[2017-04-13] MEDS: LOPRESSOR PO SCH (14:40)
--- NOTE | 2017-04-13 17:06 | DISCHARGE SUMMARY ---
ADMISSION DATE: 04/06/2017 DISCHARGE DATE: 04/13/2017 DISPOSITION: Is [facility]. FOLLOWUP: 1. Will be with Dr. Garcia. 2. Patient PCP Dr. Steven Avila. 3. Dr. Huang. 4. Dr. Lazar. CONSULTATION DURING THIS ADMISSION: 1. Cardiology was consulted. Patient was seen by Dr. Lazar. 2. Pulmonary medicine was consulted. Patient was seen by Dr. Jennings. 3. Neurology was consulted. Patient was seen by Dr. Huang. 4. Nephrology was consulted. Patient was seen by Dr. Garcia. INVASIVE PROCEDURES DONE DURING THIS ADMISSION: A left side thoracentesis was done by IR. IMAGING STUDIES OF SIGNIFICANCE: 1. A CT scan of the head was done on 04/06/2017 was completely negative. 2. An MRI of the brain was done which showed no acute disease. 3. An MRA of the brain showed no aneurysm, no significant stenosis. 4. An MRA of the neck shows negative exams. 5. A repeat CT scan of the head was done on 04/08/2017. Negative. ADMISSION DIAGNOSES: 1. Slurred speech. 2. Endstage renal disease. 3. History of Crohn's. 4. Chronic atrial fibrillation. 5. Benign prostatic hypertrophy. DISCHARGE DIAGNOSES: 1. Altered mental status secondary to metabolic encephalopathy. Improved. 2. Bilateral pleural effusions left more than right status post thoracentesis. 3. Atrial fibrillation with RVR on presentation. Currently rate controlled. 4. Congestive heart failure. Ejection fraction of 35-40% stable. 5. Hypothyroidism. 6. Protein calorie malnutrition. 7. 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 8. Vitamin D deficiency. 9. Hyperphosphatemia. 10. Generalized weakness due to bone and mineral disease associated with end-stage renal disease. DISCHARGE MEDICATIONS: 1. Sodium bicarb 1300 b.i.d. 2. Tamsulosin 0.4 at bedtime. 3. Gabapentin 200 mg daily. 4. Pantoprazole 40 mg daily. 5. Sevelamer 800 mg p.o. 3 times per day. 6. Vitamin complex. 7. Aspirin 81 mg daily. 8. Prednisone 5 mg daily. 9. Metoprolol 25 mg b.i.d. 10. Calcium acetate 667, 3 times per day. 11. Ergocalciferol 64669 units q.7 days. 12. Sensipar 30 mg daily. PRESENTING COMPLAINT: Altered mental status. Slurred speech. HISTORY OF PRESENTING COMPLAINT: Mr. Byrne is a 71-year-old male who presented to the emergency department because of slurred speech and being confused. Upon presentation patient was evaluated in the ER, was suspected to have possible ischemic event. The patient was admitted for further medical management. HOSPITAL COURSE: The patient was initially admitted to the ICU closely monitored neurologically. Was started on some IV antibiotics. Patient was found to be in atrial fibrillation RVR so Cardiology was consulted. Patient was also seen by Nephrology and dialysis was scheduled as usual. During the hospital stay multiple imaging studies were done to figure out the altered mentation state however MRI, [address] scans were completely unremarkable. EEG was also done which only showed a background encephalopathy with no epileptiform waves. Progressively patient's sensorium got better and was transferred from the ICU to regular floor. Posteriorly his mentation completely cleared and he was able to do a few days of physical therapy here in the hospital. Has been tolerating his meals and would therefore I think he is stable enough to go home. Patient in terms of his atrial fibrillation RVR this has been stabilized by Cardiology. Also during the hospital stay, the patient was found to have severe secondary hyperparathyroidism and vitamin D deficiency which we think was also contributing to his weakness. Patient was started on medication and he will be followed up by Nephrology. At the time of discharge, there is not any pending labs. Today his vitals, blood pressure is 125/85, pulse is 115, respiration is 15, temperature 97.7 degrees. The patient will be transferred to a rehab center to continue with his physical rehabilitation. Time spent for discharge is 37 minutes. cc: Yoel Ridley MD
== END 2017-04-13 18:00 | disposition short-term general hospital (02) ==
LOC: ED 06:54 → 3N 12:05 → SUATTDRO 12:05 → ICU 04-08 11:07 → 3N 04-10 12:50
PROVIDERS: ATTEND Internal Medicine

== ENCOUNTER 2017-04-27 11:25 | Inpatient (IN) ==
[2017-04-27 14:48] LABS: MANUAL DIFF NEEDED? NO
[2017-04-27 15:01] LABS: INR 1.59; PROTIME 17.2 Seconds (9.2-11.7); PTT 33.5 Seconds (22.0-36.0)
[2017-04-27 15:02] LABS: BASO% 0.3 % (0.0-0.8); EOS# 0.07 X1000 (0.0-0.7); EOS% 1.2 % (0.0-10.0); HEMATOCRIT 39.8 % (42.0-52.0); HEMOGLOBIN 12.8 g/dL (14.0-18.0); LYMPH% 6.7 % (20.5-51.1); MCH 30.1 PG (27-31); MCHC 32.2 g/dL (33-37); MCV 93.6 FL (81-99); MONO# 0.69 X1000 (0.11-0.59); MONO% 11.5 % (1.7-9.3); MPV 11.9 FL (7.4-10.4); NEUT% 80.3 % (42.2-75.2); PLT 111 X1000 (130-400); RBC 4.25 XMIL (4.7-6.1)
[2017-04-27 15:22] LABS: ALBUMIN 2.6 g/dL (3.5-5.0); CALCIUM 8.2 mg/dL (8.8-10.2); TOTAL BILIRUBIN 1.07 mg/dL (0.20-1.00); TOTAL PROTEIN 5.6 g/dL (6.3-8.3)
[2017-04-27] MEDS ORDERED: CARDIZEM IV ONE (15:43)
--- NOTE | 2017-04-27 15:59 | Diag Imaging Result Doc PS360 ---
EXAM: CHEST-PORTABLE INDICATION: AMS TECHNIQUE: One view COMPARISON: 04/12/2017 FINDINGS: The left pleural effusion seen on the previous study has increased in size. It is now at least moderate in size. There is adjacent atelectasis and/or infiltrate at the left lung base. There is increased central vasculature and infiltrates at the right lung base as well suggesting probable pulmonary venous congestion and mild edema. The cardiac silhouette is grossly stable. IMPRESSION: 1.Increasing left pleural effusion with adjacent left basilar atelectasis and/or infiltrate. 2.Increased opacity at the right lung base as well with increased central vasculature, likely representing pulmonary edema and pulmonary venous congestion. Electronically signed by Hussain Austin 04/27/2017 3:57 PM
--- NOTE | 2017-04-27 16:02 | EKG Report ---
Test Performed on : 04/27/2017 2:34:35 PM Test Reason : AMS Blood Pressure : / mmHG Vent. Rate : 127 BPM Atrial Rate : 108 BPM P-R Int : 000 ms QRS Dur : 104 ms QT Int : 338 ms P-R-T Axes : 000 223 030 degrees QTc Int : 491 ms Atrial fibrillation. with rapid ventricular response. with premature ventricular or aberrantly condu cted complexes. Right superior axis deviation Possible Anterior infarct , age undetermined T wave abnormality, consider lateral ischemia Abnormal ECG When compared with ECG of 07-APR-2017 06:34, Questionable change in QRS axis Confirmed by Yoni LEHMAN, Elmer Leos ([id number]) on 04/30/2017 7:51:10 AM
[2017-04-27] MEDS ORDERED: DUONEB (A & A) INH PRN (16:03)
[2017-04-27] MEDS: CARDIZEM 100 MG/NS 100 MG/100 ML IVPB IV SCH (16:29)
[2017-04-27] MEDS: ALBUMIN 25% IV SCH ×2 (16:38→22:50)
--- NOTE | 2017-04-27 16:44 | HISTORY AND PHYSICAL ---
HYDRAULIC RIVETER: Dr. Garcia. SENIOR FINANCIAL: Dr. Schwab. CHILDCARE WORKER: Dr. Green. CHIEF COMPLAINT: Altered mental status. HISTORY OF PRESENT ILLNESS: Mr. Byrne is a 72-year-old male with a history of ESRD on hemodialysis, followed by Dr. Garcia. He was recently discharged from our service exactly 2 weeks ago. At that time, he was diagnosed with altered mental status and slurred speech, ESRD, chronic atrial fibrillation, and BPH. He was discharged to [facility] in [place] where he currently resides. We received a call from [place] today stating that he had been confused all day and was to the point of obtunded. They felt he needed to come back to our facility for further evaluation. When he arrived we found him to be only slightly confused without focal deficits. He was also noted to be in afib with RvR. His states he is currently not on any rate control medications 2/2 hypotension. After reviewing medical history with the patient and his , we learned he has a h/o cirrhosis 2/2 prolonged steroid use but has never really been formally treated for liver disease. Because of his atrial fibrillation with RVR, he is on [facility] floor. We will start Cardizem bolus and drip and start working the patient up for hepatic encephalopathy. PAST MEDICAL HISTORY: 1. Chronic atrial fibrillation. 2. ESRD on hemodialysis. 3. Crohn disease on lifelong steroids. 4. Hypertension. 5. PAD. 6. BPH. 7. RLS. 8. Severe protein calorie malnutrition. 9. Short gut syndrome. SURGICAL HISTORY: He has had colon resections x2 secondary to Crohn disease. He has also had right femoral artery repair, bilateral cataract surgery, left upper extremity shunt placement, skin cancer removal, and rectal surgery. SOCIAL HISTORY: Patient has a remote history of smoking. Denies alcohol or drug use. He lives currently at [facility] in [place]. FAMILY HISTORY: Noncontributory. REVIEW OF SYSTEMS: A 14-point review of systems obtained and found to be negative with the exception of the HPI. ALLERGIES: Cipro. HOME MEDICATIONS: Currently being compiled. PHYSICAL EXAMINATION: VITAL SIGNS: Blood pressure 108/63, heart rate 134, respiratory rate is 20, O2 saturation 98% on 2 L nasal cannula. Temperature is 96.0 degrees. GENERAL: This is a frail, bordering on cachectic, and disheveled appearing, 72- year-old male, who appears older than stated age, lying in hospital bed in no acute distress. NEUROLOGIC: The patient is a somewhat lethargic but he opens his eyes to verbal stimulus and answers questions appropriately. There are times that he continues to repeat his answers back-to- back with the same thing. He follows commands without any acute focal deficits. There is no asterixis. HEENT: Head is atraumatic and normocephalic. His pupils are equal, round, and reactive to light, a bit icteric. Oral mucosa is dry. Trachea is midline. There is no JVD. No carotid bruits. CHEST: Clear to auscultation bilaterally, diminished over the left lung base. CV: Tachy and irregular. S1, S2 noted. GI: Slightly distended. No tenderness to palpation. Bowel sounds are hypoactive. EXTREMITIES: Right lower extremity with diminished pulses and cool to touch, and 1+ edema. Left lower extremity without edema, warmer than the left. Pulses are palpable. DIAGNOSTIC DATA: WBC 5.9, hemoglobin 12.8, hematocrit 39.8, platelet count 111, 000. INR 1.59. Sodium 134, potassium 4.0, chloride 93, CO2 23, anion gap 18, BUN 28, creatinine 6.3, glucose 98, calcium 8.2, bilirubin 1.07, AST 110, ALT 111, alkaline phosphatase 194, ammonia is 102. CK 31, troponins 0.212. Albumin 2.6. ASSESSMENT AND PLAN: 1. Hepatic encephalopathy: Patient's altered mental status is most likely secondary to his given history of cirrhosis for which he is not on any medications for. We will start the patient on Xifaxan, but given the fact that he has short gut syndrome we will ask Gastroenterology to assist with possible lactulose therapy. We are going to get an ultrasound of his liver as well. We will trend his ammonia and monitor his response. 2. Atrial fibrillation with rapid ventricular response: We will start Cardizem bolus and drip and consult Cardiology. Patient states he is not currently on any rate control medication, we will defer this to cards. 3. End stage renal disease on hemodialysis: Will defer management to Dr. Garcia. Currently his acid-base balance is acceptable, he is mildly anemic, and volume status is stable. 4. Crohn disease and short gut syndrome: This is chronic. We are going to continue the steroids he is on and consult Gastroenterology. 5. Severe protein calorie malnutrition: We are going to add some albumin and consult nutrition. 6. Systolic congestive heart failure: Ejection fraction 35%-40%. We are checking a chest x-ray and EKG now. We will trend his enzymes. Follow strict ins and outs, and daily weights. Cardiology has been consulted. 7. Vitamin D deficiency and hyperparathyroidism/hyperphosphatemia: We will continue with his supplementation, and Renal has been consulted as well. 8. Deep venous thrombosis prophylaxis will be provided with subcutaneous heparin given his renal failure. 9. Further recommendations to follow. Dictated by MELVA Sainz for Marcus Ashford MD cc: MELVA Sainz Addendum: I personally evaluated and examined the patient in conjunction to the GLASS PRESSER and agreed with his assessment and plans. My exam showed no evidence of AMS. AAO x 3 MTDD
[2017-04-27] MEDS: DUONEB (A & A) INH SCH ×2 (19:28→22:56)
--- NOTE | 2017-04-27 19:37 | CONSULTATION ---
DATE OF CONSULTATION: 04/27/2017 IMPRESSION: 1. Chronic atrial fibrillation with increased heart rate necessitating intravenous Cardizem. 2. Reported transient altered mental status today, now improved. 3. History of metabolic encephalopathy. 4. End-stage renal disease requiring chronic hemodialysis. 5. Crohn's disease and short-bowel syndrome. 6. Severe protein calorie malnutrition. RECOMMENDATIONS: 1. Continue beta-su and adjust as required to adequately control heart rate. 2. Anticoagulation as tolerated. HISTORY: This 72-year-old, white male has a past history of end-stage renal disease requiring chronic hemodialysis, chronic atrial fibrillation, recent metabolic encephalopathy, hypertension, peripheral artery disease, Crohn's disease and short-bowel syndrome with protein calorie malnutrition was admitted from [facility] in [place] as he appeared to be confused and apparently was noted to have an increased heart rate response to his atrial fibrillation. The patient is not really aware of what went on today. He presently denies any chest discomfort or dyspnea. He appears to be clear thinking and is very much aware of where he is. PAST MEDICAL HISTORY: 1. Chronic atrial fibrillation. 2. End-stage renal disease requiring hemodialysis. 3. Crohn's disease. 4. Hypertension. 5. Peripheral artery disease. 6. Prostate hypertrophy. 7. RLS. 8. Protein calorie malnutrition. 9. Short bowel syndrome related to Crohn's disease. PAST SURGICAL HISTORY: Two previous colon resections due to Crohn's disease, right femoral artery repair, bilateral cataract surgery, left upper extremity shunt placement, skin cancer removal, and unspecified rectal surgery. ALLERGIES: Allergic or intolerant to ciprofloxacin. MEDICATIONS: Prior to admission as listed. He is noted to be on metoprolol 50 mg twice daily. SOCIAL HISTORY: He has a remote history of smoking. He does not use alcohol or drugs. He most recently resides at [facility] in [place]. FAMILY HISTORY: Negative for premature coronary disease. REVIEW OF SYSTEMS: Pulmonary: Negative. Gastrointestinal: Negative. Constitutional: Negative. Remainder of review of systems: Negative with 14 total systems reviewed. PHYSICAL EXAMINATION: General: This is an older white male, in no distress. Vital Signs: Blood pressure 110/65, heart rate 102 and irregular with ECG monitor showing atrial fibrillation, oxygen saturation 98%. HEENT Examination: Extraocular movements intact. Mucous membranes are moist. Neck: Supple without JV distention. Carotid bruits be appreciated. Chest: Clear to auscultation. Cardiac Examination: Irregular rate and rhythm without appreciable murmur or gallop. Abdomen: Soft, nontender. Extremities: Demonstrate mild pretibial edema bilaterally. Neurologic Examination: Reveals him to be alert and fully oriented. Speech is fluent. He moves all 4 extremities equally well. DIAGNOSTIC DATA: ECG on admission shows atrial fibrillation with rapid ventricular rate of 127 beats per minute, right superior axis deviation and T-wave abnormality, consider lateral ischemia. cc: Gregg Calles MD
[2017-04-27] MEDS ORDERED: HEPARIN SUBQ SCH (21:00)
[2017-04-27] MEDS ORDERED: XIFAXAN PO SCH (21:00)
[2017-04-28] MEDS: DUONEB (A & A) INH SCH ×6 (03:27→23:17)
[2017-04-28] MEDS: ALBUMIN 25% IV SCH (03:30)
[2017-04-28 05:57] LABS: HEMOGLOBIN 11.6 g/dL (14.0-18.0); MCH 30.4 PG (27-31); MCHC 32.2 g/dL (33-37); MCV 94.5 FL (81-99); MPV 12.1 FL (7.4-10.4); RBC 3.81 XMIL (4.7-6.1)
[2017-04-28 06:17] LABS: ALBUMIN 3.2 g/dL (3.5-5.0); CALCIUM 8.5 mg/dL (8.8-10.2); POTASSIUM 4.3 mmol/L (3.5-5.1); TOTAL BILIRUBIN 1.42 mg/dL (0.20-1.00); TOTAL PROTEIN 5.7 g/dL (6.3-8.3)
[2017-04-28] MEDS: CARDIZEM 100 MG/NS 100 MG/100 ML IVPB IV SCH ×2 (09:04→12:42)
[2017-04-28] MEDS ORDERED: LACTULOSE PO SCH (10:00)
[2017-04-28] MEDS ORDERED: LOPRESSOR PO SCH ×2 (10:00→15:55)
[2017-04-28] MEDS ORDERED: COUMADIN PO ONE (10:03)
[2017-04-28] MEDS: VITAMIN D PO SCH (10:38)
[2017-04-28] MEDS: SYNTHROID PO SCH (10:38)
[2017-04-28] MEDS: LACTULOSE PO SCH ×2 (12:42→16:54)
[2017-04-28] MEDS: RENAGEL PO SCH ×2 (12:42→16:54)
[2017-04-28] MEDS: PHOSLO PO SCH ×2 (12:43→16:54)
--- NOTE | 2017-04-28 14:07 | PROGRESS NOTE ---
DATE: 04/28/2017 SUBJECTIVE: The patient is a little better today from a confusion standpoint but he still not at his baseline. The patient known to our service for multiple admissions in the past. OBJECTIVE: Vital Signs: Blood pressure 105/75, pulse of 104, respirations 16, temperature 97.5 degrees, saturations of 96% on 2 L. General Appearance: Thin, white male in no acute distress. Pleasantly confused. HEENT: Anicteric. Clear conjunctivae. Neck: Supple. No JVD. No bruit. Cardiovascular: S1, S2. Normal rate and rhythm. No murmur, rubs, or gallop. Pulmonary: Clear to auscultation bilaterally. GI: Soft, nontender, nondistended. Normoactive bowel sounds. Musculoskeletal: No clubbing, cyanosis, or edema. Abdomen: Soft, nontender, nondistended. No splenomegaly. Lower extremity: No clubbing, cyanosis, or edema. LABORATORY: White count 4.63, hemoglobin 11.6, hematocrit 36.0, platelets of 71,000. Chemistry. Sodium 140, potassium 4.3, chloride 96, bicarb 23, BUN 37, creatinine 7.4, glucose of 287. Liver function tests. AST 70, ALT of 82, alkaline phosphatase 151, his ammonia up to 117 today. ASSESSMENT AND PLAN: This is a 72-year-old admitted to the hospital for altered mental status. 1. Altered mental status. His ammonia level is elevated, is unclear etiology. The patient had an ultrasound of his liver this morning. The report is still pending. We will start the patient on lactulose 3 times a day. We will recheck his ammonia level tomorrow. 2. End-stage renal disease. We will continue hemodialysis. 3. Hypothyroidism. Continue Synthroid. 4. Hypertension. The patient on metoprolol. We will try to wean down his diltiazem since the patient was having atrial fibrillation with rapid ventricular response. Add Coumadin tonight and will monitor his hemoglobin and hematocrit, will order daily, start tomorrow. 5. Benign prostatic hypertrophy. Continue Flomax. CODE STATUS: The patient is a full code. His is his surrogate decision maker.
--- NOTE | 2017-04-28 14:09 | Diag Imaging Result Doc PS360 ---
EXAM: US GB < RUQ (LIMITED) INDICATION: eval for cirrhosis COMPARISON: None. FINDINGS: There is ascites seen tracking around the liver. There are shadowing stones in the gallbladder lumen. The gallbladder wall is thickened measuring up to 6 mm. However, this could be simply due to the surrounding ascites. The common bile duct is normal in diameter. Sonographic Galvan's sign was reported to be negative. The liver echotexture is grossly unremarkable. No discrete hepatic mass is appreciated. Portal venous flow is hepatopedal and pulsatile. This pulsatile flow is probably due to congestive heart failure. The visualized pancreas is unremarkable. The aorta and IVC are grossly unremarkable. The right kidney is very echogenic, which is a nonspecific indicator of medical renal disease. There are a few right renal cysts. IMPRESSION: 1.Ascites. 2.Cholelithiasis with a thickened gallbladder wall. However, this certainly may be due to the surrounding ascites. Correlate clinically to exclude cholecystitis. 3.Pulsatile portal venous flow, likely due to congestive heart failure. 4.Echogenic right kidney, which is a nonspecific indicator of medical renal disease. Electronically signed by Hussain Austin 04/28/2017 2:06 PM
[2017-04-28] MEDS ORDERED: LOPRESSOR PO ONE (15:54)
--- NOTE | 2017-04-28 16:00 | CONSULTATION ---
DATE OF CONSULTATION: 04/28/2017 REASON FOR CONSULTATION: Assistance with management and ESRD. HISTORY OF PRESENT ILLNESS: Mr. Byrne is a 72-year-old white male who is well known to us from the outpatient dialysis arena as well as from recent hospitalizations in this facility. He was last admitted with altered sensorium which resolved spontaneously and he was discharged to [facility]. He had his routine dialysis yesterday at which time he was markedly obtunded and was therefore directed to the emergency room after his treatment. His initial ammonia level was 117. This morning he is much better and asking for food. PAST MEDICAL HISTORY: 1. ESRD. 2. Cirrhosis etiology unknown. 3. History of Crohn's disease. 4. Atrial fibrillation. 5. Peripheral vascular disease. 6. Short-bowel syndrome. ALLERGIES: Cipro. SOCIAL HISTORY: As above. No history of alcohol use. FAMILY HISTORY: Noncontributory. PHYSICAL EXAMINATION: Vital Signs: Blood pressure 105/75, heart rate 104, respirations 16, afebrile. Generally: He is in no acute distress. Skin: Warm and dry. HEENT: Conjunctivae are pink. Pupils are equal. Neck: Neck veins are not distended. Trachea is midline. Heart: Irregular without gallops or murmurs. Lungs: Have equal breath sounds. No crackles. Abdomen: Soft, nontender. Bowel sounds present. Extremities: Have no edema, clubbing, or cyanosis. IMPRESSION: 1. End-stage kidney disease. He will have his next routine hemodialysis on Sunday. 2. Electrolytes are acceptable. 3. Acid base, in target. 4. Anemia is in target. 5. Hepatic encephalopathy. Improved. I will order a diet for today. cc: Adria Garcia MD
--- NOTE | 2017-04-28 16:14 | PROGRESS NOTE ---
DATE: 04/28/2017 SUBJECTIVE: The patient is without any chest discomfort or dyspnea. His family indicates that his mental status seems to be approaching baseline. OBJECTIVE: Vital Signs: Heart rate 91, blood pressure 105/75. Neck: There is no significant jugular venous distention. Chest: Clear to auscultation. Cardiac: Reveals an irregular rate and rhythm, without appreciable murmur or gallop. There is no evidence of peripheral edema. IMPRESSIONS: 1. Atrial fibrillation, rate controlled. Patient is still on intravenous Cardizem. 2. Encephalopathy, improving. 3. End-stage renal disease. 4. Hypertension. RECOMMENDATIONS: Will increase metoprolol and discontinue intravenous Cardizem. cc: Gregg Calles MD
[2017-04-28] MEDS: NEURONTIN PO SCH (20:48)
[2017-04-28] MEDS: FLOMAX PO SCH (20:48)
[2017-04-28] MEDS: SODIUM BICARBONATE PO SCH (20:49)
[2017-04-29] MEDS ORDERED: LOPRESSOR PO ONE (01:05)
[2017-04-29] MEDS: DUONEB (A & A) INH SCH (03:31)
[2017-04-29 05:43] LABS: HEMATOCRIT 38.5 % (42.0-52.0); HEMOGLOBIN 12.4 g/dL (14.0-18.0); MCH 30.3 PG (27-31); MCHC 32.2 g/dL (33-37); MCV 94.1 FL (81-99); MPV 11.5 FL (7.4-10.4); RBC 4.09 XMIL (4.7-6.1)
[2017-04-29] MEDS ORDERED: NS NEB INH SCH (05:45)
[2017-04-29 05:48] LABS: INR 1.78; PROTIME 19.4 Seconds (9.2-11.7)
[2017-04-29 06:17] LABS: ALBUMIN 3.2 g/dL (3.5-5.0); CALCIUM 8.4 mg/dL (8.8-10.2); POTASSIUM 5.1 mmol/L (3.5-5.1); TOTAL BILIRUBIN 1.22 mg/dL (0.20-1.00); TOTAL PROTEIN 5.8 g/dL (6.3-8.3)
[2017-04-29] MEDS ORDERED: PROTONIX PO SCH (07:00)
[2017-04-29] MEDS: SENSIPAR PO SCH (08:19)
[2017-04-29] MEDS: RENAGEL PO SCH ×3 (08:19→16:34)
[2017-04-29] MEDS: LACTULOSE PO SCH ×4 (08:19→20:27)
[2017-04-29] MEDS: SODIUM BICARBONATE PO SCH ×2 (08:19→20:27)
[2017-04-29] MEDS: PREDNISONE PO SCH (08:19)
[2017-04-29] MEDS: LOPRESSOR PO SCH ×2 (08:19→20:27)
[2017-04-29] MEDS: ASPIRIN EC PO SCH (08:19)
[2017-04-29] MEDS: FOLTX PO SCH (08:20)
[2017-04-29] MEDS: PHOSLO PO SCH ×3 (08:20→16:34)
[2017-04-29] MEDS: SYNTHROID PO SCH (08:20)
--- NOTE | 2017-04-29 09:01 | PROGRESS NOTE ---
DATE: 04/29/2017 SUBJECTIVE DATA: Mr. Colbert is a 72-year-old, male with a history of ESRD and Crohn's disease as well as chronic atrial fibrillation who was admitted for altered mental status. Ultimately found to have hepatic encephalopathy and atrial fibrillation with a RVR. This morning, the patient is a little bit more confused. He is unable to state the President' s name but overall he is stable from a neurologic standpoint. Interestingly, his ammonia has gone to 240 this morning. We currently have him on Xifaxan and lactulose. His heart rate has jumped back into the 130s. He is currently being followed by Cardiology and is on oral metoprolol. Otherwise, no acute events were noted overnight. He is resting in bed without distress noted. OBJECTIVE DATA: Vital Signs: Blood pressure is 98/69, heart rate is 128, respiratory rate 15, O2 saturation 97% on room air. Temperature is 97.9 degrees. General: This is a frail and disheveled appearing, 72-year-old, male, lying in the hospital bed in no acute distress. Neurologic: The patient is asleep. On entry to the room, he does open his eyes to verbal stimulus. He follows commands without focal deficits but he is a bit confused and slow to answer questions correctly. HEENT: Head is atraumatic and normocephalic. Pupils are equal, round, and reactive to light. Oral mucosa is moist. Trachea is midline. Neck: Is supple. No JVD. Chest: Clear to auscultation bilaterally. CV: Tachycardic and irregular. S1 and S2 are noted. GI: Mild distention. No rigidity. Belly is nontender to palpation. Bowel sounds are hypoactive. Extremities: Diminished pulses without edema. DIAGNOSTIC DATA: WBC 5.7, hemoglobin 12.4, hematocrit 38.5, platelet count is 64,000. INR 1.78. Sodium 139, potassium 5.1, chloride 94, CO2 21, anion gap 24, BUN 45, creatinine 8.7, glucose is 92, calcium 8.4. Total bilirubin 1.22, AST 58, ALT 78, alkaline phosphatase 158, ammonia is 240, albumin is 3.2. ASSESSMENT/PLAN: 1. Hepatic encephalopathy: We have added Xifaxan and lactulose. From a physical examination standpoint, the patient is overall stable and unchanged but his ammonia has dramatically increased. We have asked Gastroenterology for assistance. We will continue with he medication regimen as outlined, trend his ammonia, and watch his neurologic status daily. 2. Atrial fibrillation with rapid ventricular response: The patient has jumped back into rapid ventricular response this morning. He is currently not on a Cardizem drip but we will defer rate control to Cardiology. Anticoagulation is being provided with heparin and Coumadin. We are trending his INRs daily. 3. Endstage renal disease, on hemodialysis: Followed by Dr. Garcia. Overall, this is stable but he is slightly more acidotic with a worsening anion gap on a daily basis. His hemoglobin and hematocrit are stable and he is overall euvolemic. 4. Hypertension: This is stable. We will continue his medications. 5. Deep venous thrombosis prophylaxis is being provided with his Coumadin. Further recommendations to follow. Dictated by MELVA Sainz for Marcus Ashford MD cc: MELVA Sainz Addendum: I personally evaluated and examined the patient in conjunction to the MINING ENGINEERING TECHNOLOGIST and agreed with his assessment and plans [facility]
[2017-04-29] MEDS: XIFAXAN PO SCH ×2 (09:34→20:27)
[2017-04-29] MEDS: XOPENEX NEB INH SCH ×3 (09:43→22:11)
[2017-04-29] MEDS: ATROVENT NEB INH SCH ×3 (09:43→22:11)
--- NOTE | 2017-04-29 12:00 | PROGRESS NOTE ---
DATE: 04/29/2017 SUBJECTIVE: Patient continues asymptomatic from a cardiovascular standpoint. OBJECTIVE: Vital Signs: Blood pressure is 134/87, heart rate 104-120 and irregular with ECG monitor showing atrial fibrillation. There is no significant jugular venous distention. Chest: Clear to auscultation. Cardiac Exam: Reveals an irregular rate and rhythm without appreciable murmur or gallop. There is no evidence of peripheral edema. IMPRESSIONS: 1. Atrial fibrillation. Heart rate elevated. Metoprolol increased to 100 mg twice daily. 2. Encephalopathy, improving. 3. End-stage renal disease. 4. Hypertension. RECOMMENDATIONS: Continue management with rate control and anticoagulation strategy. Metoprolol just increased to 100 mg twice daily. We will consider adding oral Cardizem if heart rate remains elevated despite increasing metoprolol. cc: Gregg Calles MD
[2017-04-29] MEDS: PROTONIX IV SCH (16:34)
[2017-04-29] MEDS: ZINC SULFATE PO SCH (16:34)
--- NOTE | 2017-04-29 18:36 | CONSULTATION ---
DATE OF CONSULTATION: 04/29/2017 REFERRING PHYSICIAN: Marcus Ashford M.D. PRIMARY CARE PROVIDER: Steven Avila M.D. PRIMARY YARD HAND: Adria Garcia M.D. PRIMARY TERRAZZO WORKER HELPER: Abdoulaye Schwab M.D. PRIMARY HAND ROLLER: Kevin Green M.D. REASON FOR CONSULTATION: 1. Elevated liver function tests. 2. Right upper quadrant pain. 3. Watery diarrhea. HISTORY OF PRESENT ILLNESS: The patient is a 72-year-old white male with multiple medical concerns. He was recently admitted and evaluated for altered mental status and slurred speech. He was also treated for atrial fibrillation with rapid ventricular response. He was discharged to [facility] in [place]. However, he was readmitted on 04/27/2017 with altered mental status. The patient has a history of chronic pancreatitis and cirrhosis according to his secondary to chronic steroid use. There are no records of formal diagnosis of liver disease in his chart. However, he was noted to have marked elevated liver function tests, hepatic encephalopathy with an ammonia of 240 today and right upper quadrant pain on physical exam. We are asked to participate in his care. REVIEW OF SYSTEMS: Remarkable in that the patient states for the last several weeks he has had 10 or more watery bowel movements per day. He also notes right upper quadrant pain since he was discharged last admission. He reports a history of lifelong Crohn disease of both the colon and small bowel. He states that he had at least 2 colon surgeries and he believes he also had small bowel resected. He was told after his last surgery that he had short bowel syndrome. He is been on lifelong steroids for the management of his Crohn disease. He denies treatment with anti-TNF therapy or other immunosuppressants. His is concerned because of the watery diarrhea. She notes that his mental status has been altered his 2nd to last admission 2016. Although he was slightly better at the time of discharge, he has never been back to normal according to the family. PAST MEDICAL HISTORY: 1. Chronic atrial fibrillation. 2. End-stage renal disease. 3. Crohn disease. 4. Hypertension. 5. Peripheral artery disease. 6. BPH. 7. Restless legs syndrome. 8. Severe protein calorie malnutrition. 9. Short-gut syndrome. 10. Pleural effusion in 2016. 11. Bronchitis. 12. Thrombocytopenia. 13. Kidney stones. 14. Skin cancer on the left forearm status post resection. 15. Right lower extremity/right foot DVT. 16. Pancreatitis per his . 17. Cirrhosis per his . 18. Gastroesophageal reflux disease. 19. Recurrent hypomagnesemia. 20. Right lower extremity cellulitis. 21. Normocytic anemia, chronic. 22. Parathyroid disease. 23. Pneumonia in 2016. 24. Congestive heart failure with an ejection fraction of 25% and global hypokinesis on echocardiogram 09/17/2016. 25. Pulmonary hypertension. 26. There is questionable history of a possible GI bleed in the past which is why his anticoagulation had been previously held. There are no records to document this although it is noted several times in his chart. 27. Hypothyroidism. 28. Vitamin D deficiency. 29. Vitamin B12 deficiency. PAST SURGICAL HISTORY: 1. Colon resection x2 with possible small bowel resection. 2. Right femoral artery repair in 1967. 3. Bilateral cataract surgery. 4. Left upper extremity shunt placement for dialysis. 5. Left forearm skin cancer removed. 6. Sweat gland removed from the rectum. 7. Right inguinal hernia repair. SOCIAL HISTORY: The patient previously smoked 1-1/2 packs per day for 10 years. He stopped smoking 30 years ago. He denies current alcohol use but drank no more than 1 beer 2-3 times per week in the past. He denies recreational drug use. He is and was living at home prior to his recent admission to [facility] in [place]. FAMILY HISTORY: Remarkable in that he notes that his father had prostate cancer not colon cancer as documented in the chart. His father also had a history of congestive heart failure. He has 1 brother with diabetes and hypertension. He has another brother who was recently diagnosed with borderline diabetes which is being managed by diet. MEDICATION ALLERGIES: Cipro. HOME MEDICATIONS: 1. Mylicon. 2. Synthroid. 3. Protonix. 4. Lopressor. 5. Neurontin. 6. Vitamin D. 7. Vitamin B12. 8. Sensipar. 9. PhosLo. 10. Flomax. 11. Sodium bicarbonate. 12. Renvela. 13. Prednisone. 14. Aspirin. PHYSICAL EXAM: General: He is in no acute distress. Vital Signs: His blood pressure is 103/82, pulse of 129, respirations 16, temperature of 99.1 degrees. HEENT: Remarkable for slightly poor dentition. His sclerae are slightly muddy but no norris jaundice. His conjunctivae appear normal. Neck: Supple. Chest: Is clear to auscultation anteriorly. There are decreased breath sounds in the bases posteriorly greatest over the left lung base. Cardiovascular: He had an irregularly irregular rhythm with tachycardia. There are no gallops, murmurs or rubs appreciated. Abdomen: Soft with hypoactive bowel sounds. He has moderate right upper quadrant tenderness but no rebound or guarding. Extremities: Bilaterally are negative for cyanosis, clubbing or edema. Neurologic exam is remarkable for asterixis and confusion. OBJECTIVE DATA: Reveals a hemoglobin of 12.4, hematocrit of 35.5 and a white count of 5.70. He has 64,000 platelets. His PT is 19.4 with an INR of 1.78 on Coumadin therapy. Sodium is 139, potassium 5.1, chloride 94, CO2 21, BUN 45, creatinine 8.7 and calcium of 8.4. His magnesium is 1.7, total bilirubin 1.22, AST 58, ALT 78, alkaline phosphatase 158, serum ammonia 240, total protein 5.8 and albumin 3.2. On his I's and O's the family reports that he has had at least 5 watery bowel movements today. Abdominal ultrasound from 04/27/2016 is remarkable for ascites, cholelithiasis with a thickened gallbladder wall with the recommendation to exclude cholecystitis. There was pulsatile portal venous flow suggestive of congestive heart failure, an echogenic right kidney consistent with medical renal disease. IMPRESSION: 1. Right upper quadrant pain. 2. Hepatic encephalopathy with an increasing ammonia level and asterixis. 3. Abnormal liver tests. 4. Watery diarrhea. 5. Questionable history of cirrhosis. 6. Questionable history of pancreatitis, chronic. 7. History of Crohn disease. 8. Ascites on ultrasound. 9. Abnormal gallbladder ultrasound with stones and thickened gallbladder. The cholecystitis could not be ruled out. 10. Congestive heart failure. 11. Gastroesophageal reflux disease. 12. Vitamin deficiencies as noted above. RECOMMENDATION: 1. Because of the history of possible pancreatitis and cirrhosis, I recommend a CT scan of the abdomen and pelvis with oral contrast only. This will help us to determine if there is disease present in the liver, pancreas and gallbladder. If he has pancreatic insufficiency or chronic calcific pancreatitis, this could explain his large volume watery diarrhea. 2. The patient has changes suggestive of acute cholecystitis on ultrasound. I recommend a HIDA scan in the morning. If he needs a cholecystectomy, I encourage a liver biopsy at the time. 3. To manage his worsening hepatic encephalopathy as he has evidence of asterixis on exam, I recommend increasing his lactulose to 4 times per day. 4. Please continue Xifaxan 550 mg p.o. BID. 5. Add zinc sulfate 220 mg p.o. once daily. 6. Please check a zinc level and a CRP level to assess his level of inflammation and assess for mineral deficiency. 7. Please check C. difficile, fecal white blood cell and a stool culture as the patient had a recent hospitalization and continues to have significant stool output. 8. For management of his Crohn disease, the patient appears to be experiencing adverse events due to prolonged steroid use. Therefore, one may consider anti-TNF therapy versus immunosuppression such as Imuran. 9. Please change his PPI to IV for maximal acid suppression given his above symptoms. 10. The patient denies having vitamin and mineral levels checked in years. He will need a full nutritional assessment once this acute illness has been addressed. 11. Dr. Schwab will return in the morning to assume care. 12. I will defer to Dr. Schwab with regard to long-term management of his Crohn disease and short bowel syndrome. More than 90 minutes spent with patient and family in direct care and counseling. Thank you for allowing me to participate in the care of this patient. cc: Kevin Green MD MTDD
[2017-04-29] MEDS: COUMADIN PO SCH (20:27)
[2017-04-29] MEDS: NEURONTIN PO SCH (20:27)
[2017-04-29] MEDS: FLOMAX PO SCH (20:27)
--- NOTE | 2017-04-29 21:33 | Diag Imaging Result Doc PS360 ---
EXAM: CT ABD/PELVIS ORAL CONTR ONLY HISTORY: RUQ pain, diarrhea, ? hx of cirrhosis, inc LFTs TECHNIQUE: COMPARISON: None. FINDINGS: There are moderate sized bilateral pleural effusions measuring between four and 5 cm posteriorly and inferiorly in the midline. Atelectasis to the left lower lobe. The heart is enlarged. There is a moderate to large amount of abdominal ascites. A 9 mm calcified stone is found within the gallbladder. No focal hepatic, splenic, or pancreatic abnormality identified on this noncontrasted exam. Normal adrenal glands. Multiple bilateral renal stones and renal cysts. No hydronephrosis. No aortic aneurysm. There are fluid distended loops of small bowel. Oral contrast has passed through the small bowel and entered the colon. There is thickening to the cecum. The appendix is been removed. Urinary bladder is not distended. The prostate is not enlarged. IMPRESSION: 1.Cardiomegaly with bilateral pleural effusions and basilar atelectasis 2.Cholelithiasis 3.Moderate amount of abdominal ascites 4.Renal stones and renal cysts 5.Thickening the portions of the colonic wall which may be due to the ascites although colitis is a possibility. 6.A preliminary report was given at 6:45 PM Electronically signed by Isidro Jimenes 04/29/2017 9:31 PM
[2017-04-29] MEDS: ZOSYN 2.25 GM/NS 2.25 GM/50 ML IVPB IV SCH (21:48)
[2017-04-30] MEDS: ATROVENT NEB INH SCH ×4 (03:17→22:14)
[2017-04-30] MEDS: XOPENEX NEB INH SCH ×4 (03:17→22:14)
[2017-04-30] MEDS: PROTONIX IV SCH ×2 (03:46→20:41)
[2017-04-30] MEDS: SODIUM CHLORIDE 0.9% INJ SCH ×2 (03:46→20:41)
[2017-04-30] MEDS: ZOSYN 2.25 GM/NS 2.25 GM/50 ML IVPB IV SCH ×4 (03:46→23:40)
--- NOTE | 2017-04-30 05:27 | EKG Report ---
Test Performed on : 04/29/2017 00:31:24 AM Test Reason : rhythm change Blood Pressure : / mmHG Vent. Rate : 151 BPM Atrial Rate : 129 BPM P-R Int : 000 ms QRS Dur : 090 ms QT Int : 306 ms P-R-T Axes : 000 -35 197 degrees QTc Int : 485 ms Atrial fibrillation. with rapid ventricular response. Left axis deviation Inferior infarct , age undetermined ST \T\ T wave abnormality, consider lateral ischemia Abnormal ECG When compared with ECG of 27-APR-2017 14:34, (Unconfirmed) Borderline criteria for Anterior infarct are no longer present Inferior infarct is now present Nonspecific T wave abnormality now evident in Inferior leads T wave inversion more evident in Anterolateral leads Confirmed by oYni LEHMAN, Elmer Leos ([id number]) on 04/30/2017 7:57:25 AM
[2017-04-30 05:46] LABS: INR 3.02
[2017-04-30 07:13] LABS: CALCIUM 8.3 mg/dL (8.8-10.2); POTASSIUM 5.1 mmol/L (3.5-5.1); TOTAL BILIRUBIN 1.27 mg/dL (0.20-1.00); TOTAL PROTEIN 5.7 g/dL (6.3-8.3)
[2017-04-30] MEDS ORDERED: HEPARIN IV PRN (07:32)
[2017-04-30] MEDS ORDERED: TIGHT: 0.2 ML/HR MISC PRN (07:32)
[2017-04-30] MEDS ORDERED: NS 2,000 ML MISC PRN (07:32)
[2017-04-30 08:50] LABS: HEMATOCRIT 38.8 % (42.0-52.0); HEMOGLOBIN 12.7 g/dL (14.0-18.0); MCH 30.4 PG (27-31); MCHC 32.7 g/dL (33-37); MCV 92.8 FL (81-99); MPV 12.6 FL (7.4-10.4); RBC 4.18 XMIL (4.7-6.1)
[2017-04-30] MEDS ORDERED: NS 2,000 ML ONE (11:25)
[2017-04-30] MEDS ORDERED: HEPARIN ONE (11:25)
--- NOTE | 2017-04-30 12:19 | Diag Imaging Result Doc PS360 ---
HIDA SCAN W/ EJECTION FRACTION - 04/30/2017 INDICATION: incr LFT, U/S with thickened GB and stones COMPARISON: CT from 04/29/2017 FINDINGS: 6.1 millicuries of Choletec was administered. There is delayed uptake and clearance of the tracer by the liver, however eventually there is biliary excretion. There is normal excretion into the gallbladder and small bowel. A fatty meal was given. The gallbladder ejection fraction is 0%. IMPRESSION: 1. Significantly delayed uptake and clearance of tracer by the liver compatible with diffuse hepatocellular dysfunction. 2. No biliary obstruction or acute cholecystitis. 3. Nonspecific subnormal contraction of the gallbladder. An abnormally low ejection fraction (less than 35%) can be present in patients without gallbladder dyskinesis or chronic cholelithiasis to have other medical conditions. These include but are not limited to, patients with diabetic mellitus, irritable bowel syndrome, , gastroenteritis. peptic ulcer disease, and patients receiving morphine or nifedipine. Electronically signed by Hiro Dubois 04/30/2017 12:17 PM
--- NOTE | 2017-04-30 12:20 | PROGRESS NOTE ---
DATE: 04/30/2017 SUBJECTIVE: Patient currently undergoing a HIDA scan. He is awake and alert and talkative this morning. OBJECTIVE: Vital Signs: Temperature 98.8, pulse 114, respiratory rate 19, blood pressure 123/90. Intake 630 mL, output 0. General: This is an elderly gentleman, resting currently on the table. He is awake and alert. No acute distress. HEENT: Normocephalic, atraumatic. Conjunctivae are pink. Oral mucosa is moist. Neck: Supple. Trachea midline. No JVD noted. Cardiovascular: Deferred secondary to procedure. Pulmonary: He has no increased work of breathing observed. He is on room air. Extremities: He has been able to move extremities and has been ambulatory with assistance. Integumentary: Skin is warm and dry. LAB DATA: Sodium 136, potassium 5.1, CO2 of 20, BUN 52. Creatinine 9.5. Ammonia 56, calcium 8.3, albumin 3.0. CRP 109. ASSESSMENT AND PLAN: 1. End-stage renal disease management. Today is his routine dialysis day. We will plan to dialyze him on a 2K bath/ultrafiltration to dry weight/4 hour treatment. 2. Electrolytes, acid-base balance. These are acceptable. Treat with appropriate dialysis bath. 3. Hepatic encephalopathy. His ammonia is improved. He has been having loose stools. He is also undergoing HIDA scan for evaluation of his gallbladder today per the primary. Seen, data reviewed, discussed with Sera Saavedra on 04/30/17. I agree with the above assessment and plan of care. rg Dictated by MELVA Hernandez for Adria Garcia MD cc: Adria Garcia MD [facility]
[2017-04-30] MEDS: LACTULOSE PO SCH ×4 (12:23→20:42)
[2017-04-30] MEDS: PHOSLO PO SCH ×3 (12:23→18:11)
[2017-04-30] MEDS: ASPIRIN EC PO SCH (12:24)
[2017-04-30] MEDS: SODIUM BICARBONATE PO SCH ×2 (12:24→20:42)
[2017-04-30] MEDS: PREDNISONE PO SCH (12:24)
[2017-04-30] MEDS: SYNTHROID PO SCH (12:24)
[2017-04-30] MEDS: XIFAXAN PO SCH ×2 (12:24→20:42)
[2017-04-30] MEDS: SENSIPAR PO SCH (12:25)
[2017-04-30] MEDS: ZINC SULFATE PO SCH (12:25)
[2017-04-30] MEDS: LOPRESSOR PO SCH ×2 (12:25→20:42)
[2017-04-30] MEDS: RENAGEL PO SCH ×3 (12:26→18:11)
[2017-04-30] MEDS: FOLTX PO SCH (12:26)
--- NOTE | 2017-04-30 13:18 | PROGRESS NOTE ---
DATE: 04/30/2017 SUBJECTIVE: Patient reports feeling much better. He looks to me that he is more oriented. Denies any chest pain, any difficulty breathing, any episodes of restlessness. OBJECTIVE: Vital Signs: Temperature 98.8 degrees, heart rate 114, respiratory rate 19, blood pressure 123/90. O2 saturation 99% on 2 L nasal cannula. General Examination: This is a chronically ill-looking and frail, 72-year-old male, lying in bed, in no acute distress. HEENT: Head is normocephalic, atraumatic. Pupils equal, round, reactive to light and accommodation. Anicteric sclerae and pale conjunctivae. Neck: Supple. No JVD noted. No carotid bruits. No lymphadenopathy. No thyromegaly. Cardiovascular: S1-S2 heard. Irregularly irregular heart rhythm. No murmurs, gallops, or rubs. Respiratory: Clear bilaterally to auscultation. No work of breathing or using accessory muscles. Abdomen: Soft, mildly distended, but no signs of peritoneal irritation. Bowel sounds hypoactive. Extremities: Peripheral pulses present. No edema or cyanosis. Neurological: Patient is more alert and awake. Moves 4 extremities. LABORATORY DATA: White cell count 5.01, hemoglobin 12.8, hematocrit 38.8. BMP remarkable for creatinine 9.5, BUN 52. ASSESSMENT/PLAN: 1. Hepatic encephalopathy. Since yesterday he has been given Xifaxan and Lactulose and definitely mental status is much better and ammonia level is back to normal. We are going to continue with the same management. 2. Atrial fibrillation with rapid ventricular response. Now the heart rate is somewhat better controlled. Patient on heparin and warfarin and the level is therapeutic at 3 today so we will leave to Cardiology to decide when to stop heparin. 3. End-stage renal disease on hemodialysis. Follow with Dr. Garcia. 4. Abdominal pain. The patient got a HIDA scan today so we are going to check the results today and apparently if that exam is positive, we will need to consult Surgery as this patient is a high risk surgical candidate. 5. Hypertension, stable. 6. Deep vein thrombosis prophylaxis with current anticoagulation treatment. cc: Brennan Han MD
--- NOTE | 2017-04-30 13:35 | PROGRESS NOTE ---
DATE: 04/30/2017 SUBJECTIVE: Patient continues asymptomatic from a cardiovascular standpoint. OBJECTIVE: Vital Signs: Blood pressure 123/90, heart rate 114-120 and irregular with ECG monitor showing atrial fibrillation. Oxygen saturation 99% on nasal cannula oxygen. Chest: Clear to auscultation. Cardiac: Irregular tachycardia without appreciable murmur or gallop. There is no evidence of peripheral edema. IMPRESSION: 1. Atrial fibrillation with rapid ventricular rate. 2. Encephalopathy. 3. End-stage renal disease. 4. Hypertension. RECOMMENDATIONS: 1. Continue current anticoagulation strategy. 2. Continue metoprolol 100 mg twice daily. 3. Add Cardizem to enhance rate control. cc: Gregg Calles MD
[2017-04-30 15:35] LABS: IRON SATURATION 61 %; TIBC 94 ug/dL; TOTAL IRON 57 ug/dL (53-167); UNBOUND IRON 37 ug/dL (112-346)
[2017-04-30] MEDS ORDERED: CARDIZEM PO SCH (17:00)
[2017-04-30] MEDS: NEURONTIN PO SCH (20:42)
[2017-04-30] MEDS: COUMADIN PO SCH (20:42)
[2017-04-30] MEDS: FLOMAX PO SCH (20:42)
[2017-04-30] MEDS: CARDIZEM PO SCH (20:42)
[2017-05-01] MEDS: XOPENEX NEB INH SCH ×4 (03:26→21:01)
[2017-05-01] MEDS: ATROVENT NEB INH SCH ×4 (03:26→21:01)
--- NOTE | 2017-05-01 03:46 | PROGRESS NOTE ---
DATE: 04/30/2017 SUBJECTIVE: I saw the patient in the nuclear imaging area. He is undergoing a HIDA scan. I spoke to the patient's family, his and his brother, in the in the room. The patient has a new diagnosis of liver cirrhosis and hyperammonemia. His admission ammonia was more than 200. It has gone down to 56 today. He also has a known history of Crohn's disease for many years. Had 2 bowel surgeries. Has been on chronic prednisone 5 mg a day, being managed by Dr. Schwab. He also has history of congestive heart failure with an EF of 20 to 25% for many years, more than 9 or 10 years, chronic atrial fibrillation on Coumadin, and end-stage renal disease on hemodialysis. The patient had 1 episode of dark stool on admission but then it has been liquid brown so far. Initially we thought that he will need an EGD but his hematocrit was stable so we decided to cancel it and undergo a gallbladder evaluation instead. OBJECTIVE: Vital signs: Temperature of 98.8 degrees, pulse rate of 114, respiratory rate of 19, blood pressure 123/90, sating 98% on 2 L nasal cannula. Body weight of 154 pounds 4.8 pounds, BMI 21.1 kg. General appearance: Moderately built, moderately nourished, lying, in no acute distress. HEENT: Pale conjunctivae. No icterus. Neck: Supple. Abdominal : Exam cannot be performed. Extremities: No cyanosis, clubbing. Neurologic: He is alert, awake, and oriented. LABS: His hemoglobin and hematocrit are 12.7 and 38.8, white count of 5.01, platelet count of 80,000, MCV of 92.8. INR of 3.02, PTT of 34. He is on Coumadin. Sodium 130, potassium 5.1, chloride 92, bicarb 20, anion gap of 24, BUN of 52, creatinine 9.5, glucose of 90, calcium is 8.3, magnesium 1.7, total bilirubin is 1.27, AST 41, ALT 62, alkaline phosphatase 152 , total protein is 5.2, albumin of 3. Ammonia 56 on admission, was 102, went down to 240, and now down to 56. CRP is high at 109.04. ASSESSMENT: 1. New diagnosis of hepatic encephalopathy with increasing ammonia, asterixis, and elevated liver enzymes. An abdominal ultrasound on 04/27/2016 showing ascites, cholelithiasis, with thickened gallbladder wall, and pulsatile portal venous flow suggestive congestive heart failure, and likelihood causing liver damage associated with congestive heart failure as the patient's EF is 25%. So, he could have cardiac cirrhosis but we need to exclude other sources of cirrhosis. Will perform chronic liver disease work up. 2. End-stage renal disease. Hemodialysis Sunday, Sunday, Sunday. 3. Chronic pancreatitis. 4. History of Crohn's disease. On prednisone 5 mg a day. He is status post 2 bowel surgeries. 5. Gallstones and thickened gallbladder. Chronic cholecystitis cannot be ruled out. Will follow up on HIDA scan. 6. Congestive heart failure with ejection fraction of 25%. He is being followed by Dr. Calles. 7. Atrial ablation. He is on Cardizem and on Coumadin. 8. Anemia. 9. Right upper quadrant pain. RECOMMENDATIONS: 1. We will follow up the HIDA scan. 2. We will keep the patient on PPIs twice daily. 3. We need to carefully watch for signs of bleeding as patient is on Coumadin and has a history of questionable cardiac cirrhosis. 4. The patient will continue on lactulose 30 mL 3-4 times daily and hold for more than 3 bowel movements in 24 hours. We will also continue Xifaxan 550 mg p.o. b.i.d. 5. Will follow up the results of the stool studies. 6. Continue on GI prophylaxis and PPIs. 7. He will continue a multivitamin once daily. 8. If the patient starts having lowering hematocrit or shows signs of acute bleeding we may have to reverse his Coumadin and then plan for a possible EGD. This was discussed with the patient's family at bedside and all questions answered. cc: MD Marcus Bone MD Cesar Garcia-Rodriguez, MD William D. Denney, MD Reginald D. Gladish, MD MTDD
[2017-05-01] MEDS: ZOSYN 2.25 GM/NS 2.25 GM/50 ML IVPB IV SCH ×3 (05:18→17:12)
--- NOTE | 2017-05-01 06:25 | CONSULTATION ---
DATE OF CONSULTATION: 04/30/2017 REQUESTING PHYSICIAN: Dr. Neff. REASON FOR CONSULTATION: Consult is concerning abnormal HIDA scan. HISTORY OF PRESENT ILLNESS: A 72-year-old, male with multiple medical problems presenting with altered mental status. During the process, it was felt that he had hepatic encephalopathy. He had a questionable history of cirrhosis, although the exact etiology is unknown. He had elevated ammonia levels and ascites. During the workup, his hepatic encephalopathy appeared to improve. He did have a CT scan that showed a significant amount of ascites. He, at some point, complained of right upper quadrant pain, although he is not complaining of it currently and that prompted a HIDA scan. The HIDA scan showed a delayed uptake in his biliary tree but essentially no ejection fraction. The patient right now is currently alert and oriented. Denied any abdominal pain at this time. I reviewed the notes from all the consulting physicians. 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 PAST SURGICAL HISTORY: Includes previous colon resection x2, small bowel resection, right femoral artery repair, bilateral cataract surgery, left upper extremity shunt placement, unspecified skin cancer removal, and rectal surgery. FAMILY HISTORY: Reviewed with patient and noncontributory. SOCIAL HISTORY: Denies alcohol or illicit drugs. Remote history of smoking. ALLERGIES: Cipro. MEDICATIONS: Reviewed. Of note, patient is on Coumadin. REVIEW OF SYSTEMS: A full 10 point review of systems was obtained and negative except those specified in the HPI. PHYSICAL EXAMINATION: Vital Signs: The patient is currently afebrile. His vital signs are stable. General Examination: No acute distress. male, looks stated age. HEENT: Normocephalic, atraumatic. Pupils equal, round, and react to light. Mucous membranes moist. Oropharynx benign. Neck: Supple. Trachea midline. Cardiovascular: Irregularly irregular. Lungs: Grossly clear. Abdomen: Soft, nontender, nondistended. Previous surgical skin incisions noted. Some distention. Soft. Mildly distended. No peritoneal signs. No real right upper quadrant tenderness. Extremities: Moves all extremities. Neurologic: Grossly intact. Skin: No signs of jaundice. Vascular: All extremities perfused. LABORATORY: White blood cell count is 5, hematocrit is 38, platelet count 80,000. INR 3.02. Creatinine 9.5. Bilirubin 1.27. Albumin 3. Imaging and HIDA scan were reviewed. ASSESSMENT/PLAN: A 72-year-old, male with an abnormal HIDA scan. 1. Multiple medical comorbidities. At this time, currently being managed by the hospitalist and cardiology. These include hepatic encephalopathy, atrial fibrillation, end-stage renal disease, hypertension. 2. Abnormal HIDA scan. At this time, patient does have questionable cirrhosis. Unsure if HIDA scan will be diagnostic at this time, given his poor uptake. Regardless, patient is not complaining of abdominal pain. His overall perioperative mortality would be significantly high. If he is truly cirrhotic, I would grade him at potentially a Child-Tyler C which could make his mortality upward to 80%. He also has a congestive heart failure into the 25% range which makes him a high risk for surgery. At this time, given his lack of symptoms, we will monitor him. If his clinical status changes, we may consider a different course but at this time, I would recommend monitoring him and treating him symptomatically. I will continue to follow with you. I appreciate the consult. cc: Isaac Padilla MD
[2017-05-01 07:10] LABS: INR 6.67
--- NOTE | 2017-05-01 07:58 | PROGRESS NOTE ---
DATE: 05/01/2017 SUBJECTIVE: Patient doing okay. No major issues. Tolerating p.o. OBJECTIVE: Vital Signs: Patient is currently afebrile. His vital signs have been stable. General: No acute distress. Resting comfortably. HEENT: Normocephalic atraumatic. Pupils equal, round, react to light. Mucous membranes moist. Oropharynx benign. Neck: Supple. Trachea midline. Cardiovascular: Irregularly irregular. Lungs: Grossly clear. Abdomen: Soft. Some distention but nontender. Extremities: Moves all extremities. Neurologic: Grossly intact. Skin: No signs of jaundice. Vascular: All extremities perfused. LABORATORY: Currently pending. ASSESSMENT/PLAN: A 72-year-old, male with multiple medical comorbidities with abnormal HIDA scan. 1. Multiple medical comorbidities at this time being handled by the hospitalist service, Cardiology and Nephrology. Will defer further workup to them. 2. Abnormal HIDA scan. At this time, patient is not a surgical candidate. He has potential cirrhosis. I suspect this is altering the HIDA scan. He is nontender at this time. I would recommend watching for now. cc: Isaac Padilla MD
[2017-05-01] MEDS: LACTULOSE PO SCH ×4 (09:19→21:58)
[2017-05-01] MEDS: SODIUM BICARBONATE PO SCH ×2 (09:19→21:57)
[2017-05-01] MEDS: PROTONIX IV SCH ×2 (09:19→21:57)
[2017-05-01] MEDS: SENSIPAR PO SCH (09:19)
[2017-05-01] MEDS: SODIUM CHLORIDE 0.9% INJ SCH ×2 (09:19→21:58)
[2017-05-01] MEDS: LOPRESSOR PO SCH ×2 (09:20→21:57)
[2017-05-01] MEDS: FOLTX PO SCH (09:20)
[2017-05-01] MEDS: CARDIZEM PO SCH (09:20)
[2017-05-01] MEDS: SYNTHROID PO SCH (09:20)
[2017-05-01] MEDS: ASPIRIN EC PO SCH (09:20)
[2017-05-01] MEDS: RENAGEL PO SCH ×3 (09:20→17:11)
[2017-05-01] MEDS: XIFAXAN PO SCH ×2 (09:20→21:57)
[2017-05-01] MEDS: PREDNISONE PO SCH (09:20)
[2017-05-01] MEDS: PHOSLO PO SCH ×3 (09:20→17:11)
[2017-05-01] MEDS: ZINC SULFATE PO SCH (09:20)
--- NOTE | 2017-05-01 10:14 | PROGRESS NOTE ---
DATE: 05/01/2017 SUBJECTIVE: Patient reports feeling much better. He is looking more oriented definitely, complaining still of diarrhea secondary to lactulose 2 or 3 times per day. No chest pain. No difficulty in breathing. OBJECTIVE: Vital Signs: Temperature 98.6 degrees, heart rate 122, respiratory rate 14, blood pressure 114/74, O2 saturation 94% on 3 L nasal cannula. General Examination: This is a chronically ill-looking and frail, 72-year-old male, lying in bed in no acute distress. HEENT: Head is normocephalic, atraumatic. Anicteric sclerae and pale conjunctivae. Mucous membranes dry. Neck: Supple. No JVD noted. No carotid bruits. No lymphadenopathy. No thyromegaly. Cardiovascular exam: S1, S2 heard. Irregularly irregular heart rhythm. No murmurs, gallops, or rubs. Respiratory exam: Clear bilaterally to auscultation. No work of breathing or using accessory muscles. Abdomen: Soft. No signs of peritoneal irritation. Not painful to palpation. Bowel sounds hypoactive. Extremities: Peripheral pulses present in both legs. No clubbing or cyanosis. Neurological exam: The patient is more alert. Definitely moves 4 extremities. LABORATORY DATA: INR 6.67 and ammonia 36. ASSESSMENT AND PLAN: 1. Hepatic encephalopathy. Since he is on Xifaxan and lactulose, the patient clinically is much better and ammonia levels are back to normal. At this point, we are going to continue with the same management. 2. Atrial fibrillation with rapid ventricular response by now, . The heart rate is better controlled. Patient is on warfarin and today INR is supratherapeutic of 6.67, so we are going to stop the warfarin for a couple days and we will keep checking INR daily. Cardiology is following this patient. 3. End-stage renal disease on hemodialysis. Dr. Garcia is following this patient. 4. Abdominal pain. HIDA scan shows ejection fraction and fevers, so Dr. Padilla was consulted for possible surgery. He thinks that this patient has a high risk of mortality. So, at this time, considering that he is not complaining specifically of abdominal pain in the right upper quadrant, we are going to continue monitoring him. 5. Hypertension. Blood pressure is definitely more stable. 6. Deep vein thrombosis prophylaxis on warfarin. 7. Physical deconditioning. Physical therapy will be consulted today. Overall this patient is doing fine. If tomorrow the patient is able to walk around and INR is going back to normal, we may probably discharge this patient. cc: Brennan Han MD
--- NOTE | 2017-05-01 10:43 | PROGRESS NOTE ---
DATE: 05/01/2017 SUBJECTIVE: The patient continues asymptomatic from a cardiovascular standpoint. OBJECTIVE: Vital Signs: Blood pressure 106/72 heart rate 115-120 beats per minute and irregular with ECG monitor showing atrial fibrillation. Blood pressure 115/79. Oxygen saturation 95%. Neck: There is no significant jugular venous distention. Chest: Clear to auscultation. Cardiac exam: Irregular tachycardia without appreciable murmur or gallop. There is no evidence of peripheral edema. IMPRESSION: 1. Atrial fibrillation, chronic. Patient has mild elevation and ventricular rate response despite current therapy. 2. End-stage renal disease. 3. Hypertension. RECOMMENDATIONS: 1. Continue current anticoagulation strategy. 2. Continue metoprolol 100 mg twice daily. 3. Adjust Cardizem to enhance rate control. cc: Gregg Calles MD
[2017-05-01 10:56] LABS: HEPATITIS PROFILE ACUTE SEE COMMENTS
[2017-05-01] MEDS: CARDIZEM CD PO SCH (12:09)
[2017-05-01] MEDS: NEURONTIN PO SCH (21:57)
[2017-05-01] MEDS: FLOMAX PO SCH (21:57)
[2017-05-02] MEDS: ZOSYN 2.25 GM/NS 2.25 GM/50 ML IVPB IV SCH ×4 (00:54→17:37)
[2017-05-02] MEDS: XOPENEX NEB INH SCH ×4 (03:30→22:33)
[2017-05-02] MEDS: ATROVENT NEB INH SCH ×4 (03:30→22:33)
--- NOTE | 2017-05-02 06:21 | PROGRESS NOTE ---
DATE: 05/02/2017 SUBJECTIVE: Patient doing well. No major issues. Tolerating p.o. OBJECTIVE: Vital Signs: Patient is currently afebrile. His vital signs are stable. General: No acute distress. Resting comfortably. HEENT: Normocephalic, atraumatic. Pupils equal, round, react to light. Mucous membranes moist. Oropharynx benign. Neck: Supple. Trachea midline. Cardiovascular: Irregularly irregular. Lungs: Grossly clear. Abdomen: Soft. Some distention, but nontender. Extremities: Moves all extremities. Neurologic: Grossly intact. Skin: No signs of jaundice. Vascular: All extremities perfused. LABORATORY STUDIES: Currently pending. His INR from yesterday was 6.67. ASSESSMENT AND PLAN: A 72-year-old male with multiple medical comorbidities, with an abnormal HIDA scan. 1. Multiple medical comorbidities. At this time, he is managed by the Hospitalist service, Cardiology and Nephrology. 2. Abnormal HIDA scan. At this time, the patient is not a surgical candidate. He is not having any abdominal pain at this time. I would recommend just monitoring him. I will be available if needed. cc: Isaac Padilla MD
[2017-05-02] MEDS ORDERED: NS 2,000 ML MISC PRN (07:47)
[2017-05-02 09:05] LABS: MANUAL DIFF NEEDED? NO
[2017-05-02 09:13] LABS: BASO% 0.8 % (0.0-0.8); EOS# 0.05 X1000 (0.0-0.7); HEMATOCRIT 38.5 % (42.0-52.0); LYMPH% 5.7 % (20.5-51.1); MCH 29.9 PG (27-31); MCHC 31.2 g/dL (33-37); MCV 95.8 FL (81-99); MONO# 0.53 X1000 (0.11-0.59); MONO% 10.2 % (1.7-9.3); NEUT% 82.3 % (42.2-75.2); PLT 80 X1000 (130-400); RBC 4.02 XMIL (4.7-6.1)
[2017-05-02] MEDS: ZINC SULFATE PO SCH (09:24)
[2017-05-02] MEDS: LACTULOSE PO SCH ×4 (09:24→20:28)
[2017-05-02] MEDS: SODIUM BICARBONATE PO SCH ×2 (09:24→20:29)
[2017-05-02] MEDS ORDERED: NS 2,000 ML ONE (09:24)
[2017-05-02] MEDS: CARDIZEM CD PO SCH (09:25)
[2017-05-02] MEDS: RENAGEL PO SCH ×3 (09:25→16:57)
[2017-05-02] MEDS: LOPRESSOR PO SCH ×2 (09:25→20:28)
[2017-05-02] MEDS: ASPIRIN EC PO SCH (09:25)
[2017-05-02] MEDS ORDERED: HEPARIN ONE (09:25)
[2017-05-02] MEDS: SENSIPAR PO SCH (09:25)
[2017-05-02] MEDS: SYNTHROID PO SCH (09:25)
[2017-05-02] MEDS: PHOSLO PO SCH ×3 (09:25→16:57)
[2017-05-02] MEDS: FOLTX PO SCH (09:25)
[2017-05-02] MEDS: XIFAXAN PO SCH ×2 (09:25→20:28)
[2017-05-02] MEDS: PREDNISONE PO SCH (09:25)
--- NOTE | 2017-05-02 09:26 | PROGRESS NOTE ---
DATE: 05/02/2017 SUBJECTIVE: The patient reports feeling fine. He is still oriented to time, place, and person. Denies any fever or chills. Denies any vomiting blood or blood in the stools. OBJECTIVE: Vital Signs: Temperature 97.5 degrees, heart rate 85, respiratory rate 20, blood pressure 97/70. O2 saturation 100% on 3 L nasal cannula. General: This is a chronically ill- looking, frail, and also icteric 72-year-old male, lying in bed, in no acute distress. HEENT: Head is normocephalic and atraumatic. Icteric sclerae. Pale conjunctivae. Mucous membranes dry. Neck supple. No JVD noted. No carotid bruits. No lymphadenopathy. No thyromegaly. Cardiovascular: S1, S2 heard. Irregularly irregular heart rhythm. No murmurs, gallops, or rubs. Respiratory: Clear bilaterally to auscultation. No work of breathing or using accessory muscles. Abdomen is soft. Signs of ascites, and the abdominal wall is more tense when in comparing with yesterday but there are no signs of peritoneal irritation. Bowel sounds hypoactive. Extremities: Peripheral pulses present in both legs. No clubbing or cyanosis noted. Neurologic: Patient is definitely more alert and awake. Moves 4 extremities. LABORATORY DATA: Pending at the time of dictation. ASSESSMENT AND PLAN: 1. Hepatic encephalopathy. Clinically, he continues to improve after we have started him on Cefaxin and lactulose. We will continue with the same management while he is here in the hospital. 2. Atrial fibrillation with rapid ventricular response. The heart rate is definitely much better controlled. Because INR was high, warfarin was stopped. Currently, this patient was taking 5 mg of warfarin daily. INR is still pending from today. The fiscal economist is following this patient. 3. Endstage renal disease on hemodialysis. Dr. Garcia is following this patient. When he is medically stable from their standpoint, he is good to go. 4. Abdominal pain. Clinically, the patient reports no abdominal pain today and a HIDA scan was normal, at this time, Surgery is not planning to do any surgical approach. So, they have signed off. 5. Hypertension. Blood pressure is a little bit low in the range of 80s and 90s. The patient is on Cardizem CD and Metoprolol 100 mg p.o. b.i.d. which we are going to switch it to 50 and see how this patient does. 6. Deep venous thrombosis prophylaxis. The patient is on warfarin. 7. Physical deconditioning. Physical therapy is on board working with this patient. Overall, this patient is doing good and we are basically waiting for INR and the rest of the labs. We are going to order ultrasound-guided paracentesis because this patient is complaining that the abdomen is getting more distended and painful. Will do that procedure today. cc: Brennan Han MD
[2017-05-02 09:29] LABS: CALCIUM 7.5 mg/dL (8.8-10.2)
[2017-05-02 09:36] LABS: POTASSIUM 4.7 mmol/L (3.5-5.1); PROTIME > 100.0 Seconds (9.2-11.7)
[2017-05-02 09:38] LABS: INR > 8.32
[2017-05-02] MEDS: PROTONIX IV SCH ×2 (09:45→20:29)
[2017-05-02] MEDS ORDERED: VITAMIN K SUBQ ONE (10:17)
--- NOTE | 2017-05-02 12:15 | PROGRESS NOTE ---
DATE: 05/01/2017 SUBJECTIVE: Feeling better with 2-3 bowel movements a day on lactulose. Eating better. Generally feels stronger. OBJECTIVE: Vital Signs: Stable. Temperature 98.6, heart rate 90 to 110, respiratory rate 14, blood pressure 114/72, O2 saturation 94% on 3 L. HEENT: No significant scleral icterus or pallor. Neck: Supple. Trachea midline. Heart: Irregularly irregular heart sounds. Lungs: Clear. Abdomen: Benign. LABORATORY DATA: Ammonia is back to normal. His INR is still high at 6.67. Coumadin is held. IMPRESSION AND PLAN: 1. Hepatic encephalopathy, much better. He is on Rifaximin and lactulose. There are no signs of any obvious encephalopathy. 2. Atrial fibrillation with rapid ventricular rapid ventricular response. He is not started on Coumadin obviously because he is still lower anticoagulated. 3. End-stage renal disease on dialysis. 4. Patient has some vague abdominal pain. Dr. Padilla is seen and he would defer any intervention at this time. 5. Hypertension. 6. Deep vein thrombosis prophylaxis. At this point, we will continue to be supportive. I do agree that is not an ideal candidate for elective cholecystectomy. We will follow with you. cc: Abdoulaye Schwab MD
--- NOTE | 2017-05-02 13:51 | PROGRESS NOTE ---
DATE: 05/02/2017 SUBJECTIVE: Patient awake and alert this morning. His mentation is back to his baseline. He is waiting to go to dialysis. OBJECTIVE: Vital Signs: Temperature 98 degrees, pulse 80, respiratory rate 14 , blood pressure 89/69, intake 940 mL, output has not been measured. General: This is an elderly gentleman resting in bed. Awake, alert, no acute distress. HEENT: Normocephalic, atraumatic. Oral mucosa moist. Dentition poor. MERVIN, conjunctivae pink. Neck: Supple. No JVD. Cardiovascular: He is irregularly irregular rate and rhythm. No murmur or gallop. Pulmonary: Equal excursion. He is clear bilaterally with no increased work of breathing. Abdomen: Soft, positive bowel sounds. He does have some mild distention. Soft. : Not inspected. Extremities: No clubbing, cyanosis, edema. Integumentary: Skin is warm and dry. LABORATORY DATA: Pending. ASSESSMENT AND PLAN: 1. End-stage renal disease management. Today is his routine dialysis day. We will plan to dialyze him on a 2K bath/UF to dry weight 4-hour treatment. Continue on Sunday, Sunday, Sunday schedule as long as he remains in the hospital. 2. Atrial fibrillation with rapid ventricular response. Followed by primary cardiology. 3. Hepatic encephalopathy. He has been started on Xifaxan and lactulose followed by primary and Gastroenterology. 4. Electrolytes, acid-base balance. These have been stable. Seen, data reviewed, discussed with Sera Saavedra on 05/02/17. I agree with the above assessment and plan of care. rg Dictated by MELVA Hernandez for Adria Garcia MD cc: Adria Garcia MD [facility]
--- NOTE | 2017-05-02 17:12 | PROGRESS NOTE ---
DATE: 05/02/2017 SUBJECTIVE: Patient is currently is sitting in bed. His is at the bedside. He is feeling better today. He denies any history of any fevers, rigors, chills or nausea, vomiting. He had one liquid brown stool today. Chronic liver disease workup is ongoing. His iron percent saturation was high at 61% and ferritin was up to 1242. I discussed the findings with Dr. Garcia and he thinks it is likely secondary to iron infusions during dialysis. He also was noted to have a positive CHARLES and positive Anti-DS DNA. These findings can be seen in patients with lupus. His hepatitis panel is nonreactive. His ammonia has normalized to 36. OBJECTIVE: Vitals: Temperature 97.8 degrees, pulse of 62, respiratory rate 20 , blood pressure 123/79, saturating 100% room air. Body weight of 167 pounds 12.8 ounces. General Appearance: Thinly built, sitting in bed, in no acute distress. HEENT: No pallor. No icterus. Neck: Supple. Abdomen: Soft, nontender, nondistended. Bowel sounds are present. Extremities: No cyanosis, clubbing. Neurologic: He is alert, awake, oriented. LABORATORY: His hemoglobin and hematocrit is 12 and 38.5, white count of 5.2, platelet count of 80,000, MCV of 95.8. INR is 8.32, PT of 100. His Coumadin has been held. He is being given vitamin K today. Sodium 140, potassium 4.7, chloride 96, bicarb 20, anion gap of 24, anion gap of 40, creatinine of 8.6, chloride 100, calcium is 7.5. Ammonia of 36. Alpha 1 antitrypsin level was 174, normal. CHARLES level is positive and anti-DS DNA antibody is positive. Hepatitis panel is nonreactive. Zinc level was 0.5 which is low. IMPRESSION AND PLAN: 1. New diagnosis of hepatic encephalopathy and liver cirrhosis. Unclear etiology. I suspect it could be secondary to autoimmune liver disease versus iron overload versus cardiac cirrhosis. We will follow up on hemochromatosis genotype and Anti smooth muscle antibody. Since the patient has a very low EF of 25%, this is very likely the explanation for patient's liver cirrhosis. 2. Coagulopathy secondary to Coumadin. The patient has atrial fibrillation. He was given a dose of vitamin K today. 3. Hepatic encephalopathy. Continue on Xifaxan 5 mg p.o. b.i.d. and lactulose 30 mL 4 times a day. 4. Endstage renal disease on hemodialysis per Dr. Garcia. 5. Patient has some gallbladder dyskinesia and chronic cholecystitis. But he is a very high risk for undergoing cholecystectomy. He is being followed Dr. Padilla. 6. The above plan of care discussed with the patient and family and all questions answered. cc: Jeff Neff MD MTDD
[2017-05-02] MEDS: ZOFRAN IV PRN (20:24)
[2017-05-02] MEDS: FLOMAX PO SCH (20:28)
[2017-05-02] MEDS: NEURONTIN PO SCH (20:28)
[2017-05-02] MEDS: SODIUM CHLORIDE 0.9% INJ SCH (20:29)
[2017-05-02] MEDS ORDERED: SODIUM CHLORIDE 0.9% INJ ONE (22:39)
[2017-05-02] MEDS ORDERED: PHENERGAN IV ONE (22:39)
[2017-05-03] MEDS: ZOSYN 2.25 GM/NS 2.25 GM/50 ML IVPB IV SCH ×5 (00:06→23:54)
[2017-05-03] MEDS ORDERED: LANOXIN IV ONE (01:52)
[2017-05-03] MEDS: XOPENEX NEB INH SCH ×3 (03:37→15:44)
[2017-05-03] MEDS: ATROVENT NEB INH SCH ×3 (03:37→15:45)
--- NOTE | 2017-05-03 04:38 | PROGRESS NOTE ---
DATE: 05/02/2017 SUBJECTIVE: Patient reports significant nausea this evening. He denies any chest discomfort or shortness of breath. OBJECTIVE: Vital Signs: Blood pressure 123/79, heart rate varies from 100-110 beats per minute with ECG monitor showing atrial fibrillation. Oxygen saturation 100% on room air. Neck: There is no significant jugular venous distention. Chest: Clear to auscultation. Cardiac: Examination reveals an irregular rate and rhythm without appreciable murmur or gallop. Extremities: There is no evidence of peripheral edema. ASSESSMENT: 1. Atrial fibrillation. Heart rate better control with current regimen. However, nausea potentially may be related to diltiazem. 2. Encephalopathy, improved. 3. End-stage renal disease. 4. Hypertension. RECOMMENDATIONS: 1. Continue . 2. Discontinue Cardizem, see if this improves his nausea symptoms. 3. Continue overall strategy of rate control and anticoagulation. cc: Gregg Calles MD
[2017-05-03 05:11] LABS: MANUAL DIFF NEEDED? NO
[2017-05-03 05:30] LABS: BASO% 0.3 % (0.0-0.8); EOS# 0.06 X1000 (0.0-0.7); HEMATOCRIT 40.3 % (42.0-52.0); HEMOGLOBIN 13.3 g/dL (14.0-18.0); LYMPH# 0.41 X1000 (1.2-3.4); LYMPH% 6.9 % (20.5-51.1); MCH 30.4 PG (27-31); MONO# 0.55 X1000 (0.11-0.59); MONO% 9.2 % (1.7-9.3); MPV 11.5 FL (7.4-10.4); NEUT% 82.6 % (42.2-75.2); PLT 107 X1000 (130-400); RBC 4.38 XMIL (4.7-6.1)
[2017-05-03 05:48] LABS: CALCIUM 7.8 mg/dL (8.8-10.2); POTASSIUM 4.5 mmol/L (3.5-5.1)
--- NOTE | 2017-05-03 05:48 | EKG Report ---
Test Performed on : 05/03/2017 00:44:57 AM Test Reason : rhythm change Blood Pressure : / mmHG Vent. Rate : 132 BPM Atrial Rate : 129 BPM P-R Int : 000 ms QRS Dur : 106 ms QT Int : 322 ms P-R-T Axes : 000 032 209 degrees QTc Int : 477 ms Atrial fibrillation. with rapid ventricular response. with premature ventricular or aberrantly condu cted complexes. ST \T\ T wave abnormality, consider inferolateral ischemia Abnormal ECG When compared with ECG of 29-APR-2017 00:31, Criteria for Inferior infarct are no longer present T wave inversion no longer evident in Anterior leads Confirmed by Yoni LEHMAN, Elmer Leos ([id number]) on 05/03/2017 11:39:00 AM
[2017-05-03 06:17] LABS: PROTIME > 100.0 Seconds (9.2-11.7)
[2017-05-03 06:21] LABS: INR > 8.32
[2017-05-03] MEDS ORDERED: DULCOLAX PR ONE (09:51)
[2017-05-03] MEDS: PROTONIX IV SCH ×2 (09:57→21:03)
[2017-05-03] MEDS: ZINC SULFATE PO SCH (09:58)
[2017-05-03] MEDS: SYNTHROID PO SCH (09:58)
[2017-05-03] MEDS: SODIUM CHLORIDE 0.9% INJ SCH ×2 (09:58→21:04)
[2017-05-03] MEDS: LACTULOSE PO SCH ×2 (09:58→21:03)
[2017-05-03] MEDS: SODIUM BICARBONATE PO SCH ×2 (09:58→21:03)
[2017-05-03] MEDS: ASPIRIN EC PO SCH (09:58)
[2017-05-03] MEDS: RENAGEL PO SCH ×3 (09:58→17:29)
[2017-05-03] MEDS: SENSIPAR PO SCH (09:58)
[2017-05-03] MEDS: FOLTX PO SCH (09:58)
[2017-05-03] MEDS: XIFAXAN PO SCH ×2 (09:58→21:03)
[2017-05-03] MEDS: PHOSLO PO SCH ×3 (09:58→17:29)
[2017-05-03] MEDS: PREDNISONE PO SCH (09:58)
[2017-05-03] MEDS: ZOFRAN IV PRN ×3 (09:58→23:59)
[2017-05-03] MEDS: LOPRESSOR PO SCH ×2 (09:59→21:03)
[2017-05-03] MEDS ORDERED: VITAMIN K 10 MG in NS 50 ML IV ONE (10:00)
[2017-05-03] MEDS ORDERED: MIRALAX PO SCH (10:00)
--- NOTE | 2017-05-03 12:59 | PROGRESS NOTE ---
DATE: 05/03/2017 SUBJECTIVE: The patient continues with problematic nausea. He has had no chest discomfort or dyspnea. OBJECTIVE: Vital Signs: Blood pressure 109/59, heart rate 100 and irregular, with ECG monitor showing atrial fibrillation. Neck: Jugular is pressure appears to be normal on inspection of neck veins. Chest: Clear to auscultation. Cardiac Examination: Reveals a irregular rate and rhythm without appreciable murmur or gallop. There is no evidence of peripheral edema. IMPRESSION: 1. Atrial fibrillation. Heart rate better controlled with metoprolol at current dose. 2. Encephalopathy, improved. 3. Problematic nausea. Etiology not clear. 4. End-stage renal disease. 5. Hypertension. 6. Mild cardiomyopathy with echocardiography a couple months ago demonstrating left ventricular ejection fraction of 45%. 7. Apparent cirrhosis. Etiology not clear. RECOMMENDATIONS: 1. Continue metoprolol at current dose. 2. Anticoagulation as tolerated. cc: Gregg Calles MD
[2017-05-03] MEDS ORDERED: SODIUM CHLORIDE 0.9% INJ PRN (15:39)
[2017-05-03] MEDS ORDERED: PHENERGAN IV PRN (15:39)
--- NOTE | 2017-05-03 16:45 | PROGRESS NOTE ---
DATE: 05/03/2017 SUBJECTIVE: He is lying on his right side complaining of abdominal pain. No vomiting. OBJECTIVE: Vital Signs: Blood pressure 115/64, heart rate 52, respiration 19, temperature 99.4 degrees, T-max 100.6 degrees. General: Chronically ill-appearing man, lying on his right side. Eyes are closed. Answers in short sentences. No acute distress. Skin: Warm and dry. HEENT: Conjunctivae are pink. Oropharynx not examined. Neck: Neck veins are not visible. Heart: Irregular with increased heart rate. Lungs: Have equal breath sounds. No crackles. Abdomen: Mildly tender. Bowel sounds are present. Extremities: Have 1+ edema. No clubbing or cyanosis. LABORATORY DATA: Sodium 138, potassium 4.5, chloride 96, bicarbonate 22, BUN 30, creatinine 7.1. Hemoglobin 13.3. IMPRESSIONS: 1. Abdominal pain. Etiology is not clear. Will check flat and upright of the abdomen today and ultrasound in the morning. 2. End-stage renal disease. He will have his next scheduled hemodialysis treatment on Sunday. 3. Electrolytes/acid base in target. cc: Adria Garcia MD
--- NOTE | 2017-05-03 17:03 | Diag Imaging Result Doc PS360 ---
EXAM: ABDOMEN FLAT/UPRIGHT INDICATION: pain TECHNIQUE: 2 views COMPARISON: None. FINDINGS: There are nonspecific bowel gas patterns throughout the abdomen. Much of this is colonic gas. There is some nonspecific small bowel gas as well. Consider ileus versus low-grade obstruction. There is no evidence of large volume free abdominal gas. IVC filter is in place. There is a bowel staple line on the right. IMPRESSION: Nonspecific bowel gas patterns as described. Electronically signed by Hussain Austin 05/03/2017 5:01 PM
[2017-05-03] MEDS: FLOMAX PO SCH (21:03)
[2017-05-03] MEDS: NEURONTIN PO SCH (21:03)
[2017-05-03] MEDS ORDERED: TYLENOL PO ONE (22:01)
[2017-05-04] MEDS: XOPENEX NEB INH SCH ×4 (04:42→21:15)
[2017-05-04] MEDS: ATROVENT NEB INH SCH ×4 (04:42→21:15)
[2017-05-04 05:35] LABS: MANUAL DIFF NEEDED? NO
[2017-05-04 05:55] LABS: BASO% 0.4 % (0.0-0.8); EOS# 0.03 X1000 (0.0-0.7); EOS% 0.4 % (0.0-10.0); HEMOGLOBIN 12.8 g/dL (14.0-18.0); LYMPH# 0.41 X1000 (1.2-3.4); LYMPH% 5.6 % (20.5-51.1); MCHC 32.8 g/dL (33-37); MCV 91.3 FL (81-99); MONO# 0.72 X1000 (0.11-0.59); MONO% 9.8 % (1.7-9.3); MPV 12.4 FL (7.4-10.4); NEUT% 83.8 % (42.2-75.2); PLT 114 X1000 (130-400); RBC 4.27 XMIL (4.7-6.1)
[2017-05-04 06:10] LABS: INR 1.75
[2017-05-04] MEDS: ZOSYN 2.25 GM/NS 2.25 GM/50 ML IVPB IV SCH ×4 (06:12→23:20)
[2017-05-04 06:27] LABS: ALBUMIN 2.9 g/dL (3.5-5.0); CALCIUM 7.3 mg/dL (8.8-10.2); POTASSIUM 4.9 mmol/L (3.5-5.1)
--- NOTE | 2017-05-04 06:27 | PROGRESS NOTE ---
DATE: 05/03/2017 SUBJECTIVE: Patient currently is resting in bed, complaining of abdominal pain and bloating. He has been constipated. He has been on narcotics which probably made him constipated. He denies any nausea, vomiting, vomiting blood or passing blood in the stools. He denies any fevers today. OBJECTIVE: Vital Signs: Temperature 99 degrees, pulse rate of 97, respiratory 16, blood pressure 98/62, saturating 94% on room air. General Appearance: Thinly built, lying in bed, currently in mild distress with abdominal discomfort. HEENT: No pallor. No icterus. Neck is supple. Abdomen is mildly protuberant, soft. Discomfort in the periumbilical region. No rebound or guarding. Extremities: No cyanosis or clubbing. There are bruises over the lower extremities. Neuro-cheek, he was awake and alert, answers simple questions. LABORATORY DATA: Hemoglobin and hematocrit is 13.3 and 40.3. White count 5.9, platelet count of 107,000. MCV of 92. INR of 8.32. PT more than 100 which has been like this for the last 48 hours. Sodium 130, potassium 4.5, chloride 96, bicarb 22, anion gap of 20. BUN of 30. Creatinine 7.1. Glucose of 79, calcium is 7.8. His ammonia is 36 from yesterday. Alpha-1 antitrypsin level is normal 174. His CHARLES is positive and anti-DS DNA is 31.6 which is positive. Acute hepatitis panel is nonreactive. His hemochromatosis genotype, smooth muscle antibody, and ceruloplasmin level are currently pending. IMPRESSION AND PLAN: New diagnosis of 1. Hepatic encephalopathy. Liver cirrhosis of unclear etiology. We are following up the ongoing workup. Antismooth antibody, hemochromatosis genotype and ceruloplasmin levels are currently pending. It very well could be cardiac cirrhosis because of the dilated cardiomyopathy and low EF 25%. This has been going on for many years. 2. Coagulopathy secondary to Coumadin and liver cirrhosis. We will give him a dose of vitamin K to help correct the INR. 3. Hepatic encephalopathy. We will continue on Xifaxan 550 mg p.o. b.i.d., and reduce lactulose 30 mL twice daily. 4. End-stage renal disease, on hemodialysis per Dr. Garcia. 5. Patient feels constipated and bloated. Bloating could be a side effect of lactulose, so we will cut down the lactulose to twice daily and add MiraLAX instead to help with his bowel movements. 6. Gallbladder dyskinesia and chronic cholecystitis, being monitored by Dr. Padilla. He is a poor surgical candidate for any kind of intervention. cc: MD Gregg Reynolds MD Reginald D. Gladish, MD Manish Arora, MD MTDD
[2017-05-04 06:28] LABS: ALBUMIN 2.6 g/dL (3.5-5.0); DIRECT BILIRUBIN 1.9 mg/dL (0.00-0.20); TOTAL BILIRUBIN 2.8 mg/dL (0.20-1.00); TOTAL PROTEIN 5.6 g/dL (6.3-8.3)
[2017-05-04] MEDS ORDERED: TIGHT: 0.2 ML/HR MISC PRN (06:53)
[2017-05-04] MEDS ORDERED: NS 2,000 ML MISC PRN (06:53)
[2017-05-04] MEDS ORDERED: HEPARIN IV PRN (06:53)
[2017-05-04] MEDS ORDERED: ALBUMIN 25% IV ONE (10:16)
[2017-05-04] MEDS ORDERED: NS 500 ML IV ONE (10:16)
--- NOTE | 2017-05-04 10:16 | PROGRESS NOTE ---
DATE: 05/04/2017 SUBJECTIVE: He states he is not feeling much better today. Still having abdominal discomfort. No vomiting, no shortness of breath. OBJECTIVE: Vital signs: Blood pressure 77/43, heart rate 74, respiration 22, afebrile. Intake 800 mL, output 200 mL. General: In no acute distress. Skin: Warm and dry. HEENT: Conjunctivae are pink. Neck: Neck veins are not visible. Heart: Irregular and tachycardic. Lungs: Equal, no crackles. Abdomen: Soft and mildly tender. Bowel sounds are present. Extremities: No edema, clubbing, or cyanosis. LABORATORY DATA: Sodium 140, potassium 4.9, chloride 94, bicarbonate 21, BUN 39, creatinine 8.3. Hemoglobin 12.8. IMPRESSION: 1. Abdominal discomfort. Flat and upright of the abdomen were nonspecific. Abdominal ultrasound is planned for today. 2. End-stage renal disease. He is due for his routine dialysis today. If his blood pressure remains low, we may have to give back some fluid before we can treat him. 3. Atrial fibrillation. 4. Hepatic encephalopathy. 5. Cirrhosis. 6. Malnutrition. cc: Adria Garcia MD
--- NOTE | 2017-05-04 10:17 | Diag Imaging Result Doc PS360 ---
EXAM: US ABDOMEN-COMPLETE HISTORY: abd pain TECHNIQUE: COMPARISON: CT from 04/29/2017 FINDINGS: The pancreas and aorta are obscured. Normal inferior vena cava. No focal hepatic abnormality. There is a small right-sided pleural effusion. The right kidney is hyperechoic and contains several small cysts. The common bile duct measures 3 mm. There is at least one gallstone and there is sludge within the gallbladder. Gallbladder wall is mildly thickened. However, this is frequently seen with ascites and there is free fluid in the upper abdomen. The spleen is not enlarged. The left kidney is hyperechoic and contains several cysts. IMPRESSION: 1.Hyperechoic kidneys with cysts consistent with medical renal disease 2.Ascites 3.Sludge and at least a single stone within the gallbladder. 4.Right pleural effusion Electronically signed by Isidro Jimenes 05/04/2017 10:15 AM
[2017-05-04] MEDS ORDERED: HEPARIN ONE (10:20)
[2017-05-04] MEDS ORDERED: NS 2,000 ML ONE (10:20)
[2017-05-04] MEDS: ZINC SULFATE PO SCH (10:36)
[2017-05-04] MEDS: SYNTHROID PO SCH (10:37)
[2017-05-04] MEDS: SENSIPAR PO SCH (10:37)
[2017-05-04] MEDS: SODIUM BICARBONATE PO SCH ×2 (10:37→21:01)
[2017-05-04] MEDS: XIFAXAN PO SCH ×2 (10:37→21:00)
[2017-05-04] MEDS: ASPIRIN EC PO SCH (10:38)
[2017-05-04] MEDS: MIRALAX PO SCH (10:38)
[2017-05-04] MEDS: PHOSLO PO SCH ×3 (10:38→16:56)
[2017-05-04] MEDS: PREDNISONE PO SCH (10:38)
[2017-05-04] MEDS: RENAGEL PO SCH ×3 (10:39→16:56)
[2017-05-04] MEDS: LOPRESSOR PO SCH ×2 (10:39→21:02)
[2017-05-04] MEDS: FOLTX PO SCH (10:39)
[2017-05-04] MEDS: LACTULOSE PO SCH ×2 (10:39→21:20)
[2017-05-04] MEDS: SODIUM CHLORIDE 0.9% INJ SCH (11:11)
[2017-05-04] MEDS: PROTONIX IV SCH ×2 (11:11→21:00)
--- NOTE | 2017-05-04 17:30 | PROGRESS NOTE ---
DATE: 05/04/2017 SUBJECTIVE: The patient continues with nausea. Blood pressure was low despite intravenous fluid administration, and he has been moved to the intensive care unit. He denies shortness of breath or chest discomfort. OBJECTIVE: Vital Signs: Blood pressure 93/50, heart rate 108, with ECG monitor showing atrial fibrillation. Neck: Jugular venous distention is evident suggesting elevated central venous pressure. Chest: Clear to auscultation. Cardiac: Exam reveals an irregular rate and rhythm without appreciable murmur or gallop. Extremities: There is mild pretibial edema. IMPRESSION: 1. Atrial fibrillation. Heart rate mildly increased. 2. Some signs of volume excess in neck vein distention and edema. The patient is due for additional hemodialysis and volume removal. 3. End-stage renal disease. 4. Hypertension. 5. Persistent nausea and abdominal discomfort. This potentially may be related to hepatic congestion. Diltiazem discontinued and symptoms have persisted, so it would appear not to be related to diltiazem. RECOMMENDATIONS: 1. Continue metoprolol at current dose. 2. Anticoagulation as tolerated. 3. Hemodialysis with volume removal. 4. Dr. Garcia covering this weekend, available in my absence on an as needed basis. cc: Gregg Calles MD
[2017-05-04] MEDS: FLOMAX PO SCH (21:01)
[2017-05-04] MEDS: NEURONTIN PO SCH (21:20)
[2017-05-05] MEDS: XOPENEX NEB INH SCH ×4 (03:15→21:35)
[2017-05-05] MEDS: ATROVENT NEB INH SCH ×4 (03:15→21:35)
[2017-05-05] MEDS: ZOSYN 2.25 GM/NS 2.25 GM/50 ML IVPB IV SCH ×4 (05:41→23:22)
[2017-05-05 05:49] LABS: HEMATOCRIT 39.3 % (42.0-52.0); HEMOGLOBIN 12.6 g/dL (14.0-18.0); MCH 30.1 PG (27-31); MCHC 32.1 g/dL (33-37); MPV 12.4 FL (7.4-10.4); RBC 4.18 XMIL (4.7-6.1)
[2017-05-05 06:05] LABS: INR 1.59; PROTIME 17.2 Seconds (9.2-11.7)
[2017-05-05 06:26] LABS: ALBUMIN 2.7 g/dL (3.5-5.0); CALCIUM 7.3 mg/dL (8.8-10.2); POTASSIUM 3.9 mmol/L (3.5-5.1)
[2017-05-05] MEDS ORDERED: NS 2,000 ML ONE (07:36)
[2017-05-05] MEDS ORDERED: HEPARIN ONE (07:36)
[2017-05-05] MEDS: XIFAXAN PO SCH ×2 (08:40→20:19)
[2017-05-05] MEDS: PREDNISONE PO SCH (08:40)
[2017-05-05] MEDS: ZINC SULFATE PO SCH (08:40)
[2017-05-05] MEDS: ASPIRIN EC PO SCH (08:40)
[2017-05-05] MEDS: MIRALAX PO SCH (08:41)
[2017-05-05] MEDS: RENAGEL PO SCH ×3 (08:41→18:46)
[2017-05-05] MEDS: LACTULOSE PO SCH ×2 (08:41→20:19)
[2017-05-05] MEDS: SYNTHROID PO SCH (08:41)
[2017-05-05] MEDS: VITAMIN D PO SCH (08:41)
[2017-05-05] MEDS: SODIUM BICARBONATE PO SCH ×2 (08:41→20:19)
[2017-05-05] MEDS: SENSIPAR PO SCH (08:44)
[2017-05-05] MEDS: FOLTX PO SCH (08:44)
[2017-05-05] MEDS: PHOSLO PO SCH ×3 (08:44→18:46)
[2017-05-05] MEDS: LOPRESSOR PO SCH ×2 (08:51→20:22)
[2017-05-05] MEDS: SODIUM CHLORIDE 0.9% INJ SCH ×2 (09:00→20:19)
[2017-05-05] MEDS: PROTONIX IV SCH ×2 (09:00→20:19)
--- NOTE | 2017-05-05 12:52 | PROGRESS NOTE ---
DATE: 05/05/2017 SUBJECTIVE: He was moved to the intensive care unit because of hypotension as well as atrial fibrillation with rapid response. This morning, he states he feels somewhat better. His abdominal pain is improved. No vomiting. He has minimal swelling by his report. No shortness of breath. OBJECTIVE: Vital Signs: Blood pressure 92/54, heart rate 106, respirations 17, afebrile. Intake 900 mL. Output none recorded but incontinent voids. Generally: He is chronically ill, with obvious weight loss. Skin: Warm and dry with jaundice and ecchymoses. HEENT: Conjunctivae are pink. Neck: Neck veins are distended. Oropharynx is dry. Heart: Irregular. Lungs: Have equal breath sounds. No crackles or wheezes. Abdomen: Distended and soft. Bowel sounds are diminished but present. Extremities: Have 1+ edema. No clubbing or cyanosis. LABORATORY DATA: Sodium 142, potassium 3.9, chloride 96, bicarbonate 23, BUN 48, creatinine 9.2. Hemoglobin 12.6. IMPRESSION: 1. End-stage kidney disease. He is receiving his routine dialysis. Ultrafiltration is limited by hypotension. Our goal is to achieve approximately 1 L ultrafiltration today. 2. Electrolytes in target. A 3 potassium bath. 3. Acid-base is in target but he does have a high anion gap presumably related to his renal disease. 4. Anemia in target. 5. Hypotension/atrial fibrillation. Appreciate the help of the consultants. cc: Adria Garcia MD
--- NOTE | 2017-05-05 18:08 | PROGRESS NOTE ---
DATE: 05/05/2017 SUBJECTIVE: Patient currently resting in bed. He was transferred to ICU yesterday for hypotension and it was thought initially that he will need SLED in the ICU. Patient's blood pressure improved and he was able to get dialysis today and 1 L was removed. He denies any fevers, rigors, or chills. He did complain of off and on nausea for last 24 hours which is now improved since the dialysis. He denies any blood in the stools. He is having liquid brown stools. Vital signs: Are 98.4, pulse rate of 113, respiratory rate, blood pressure of 120/75 saturating 90% on 3 nasal cannula. Body weight of 156 pounds. General Appearance: Thinly built, lying in bed, in no acute distress. HEENT: No pallor. No icterus. Neck: Supple. Abdomen: Soft, nontender, nondistended. Bowel sounds present. Extremities: No cyanosis, clubbing. Neurologic: He is alert, awake, oriented. LAB: Hemoglobin and hematocrit is 12.6 and 39.3, white count 6.19, platelet count of 97,000, MCV of 94, INR 1.59, PT of 17.2. Sodium 140, potassium 3.9, chloride of 96, bicarb 23, anion gap of 23. BUN of 48, creatinine of 9.2, glucose of 72. Calcium is 7.3, phosphorus 6.6, albumin of 2.7/ his anti smooth muscle antibody was negative. Hereditary hemochromatosis gene was nondetected and his ceruloplasmin level was slightly low at 17. He had a ultrasound done on which showed hyperechoic kidneys with cysts consistent with medical renal disease, ascites, sludge and at least a single gallstone in the gallbladder and right pleural effusion. IMPRESSION AND PLAN: 1. Hepatic encephalopathy and new diagnosed liver cirrhosis which is suspected to be cardiac cirrhosis secondary to dilated cardiomyopathy with the EF of 20-25%. This is likely the reason for his ascites as well. Because of severe congestive heart failure he has some colon wall thickening and colonic edema and gallbladder wall edema as well. His congestive heart failure is being managed with the Cardiology team. 2. For hepatic encephalopathy we will continue on lactulose twice daily. 3. Coagulopathy which has now been corrected. He has been on Coumadin as the patient has atrial fibrillation with rapid ventricular response. 4. End-stage renal disease on hemodialysis per Dr. Garcia. After hemodialysis his nausea has gotten better. He only removed 1 L of fluid today because of his hypertension. 5. Abdominal Bloating: Improved for now since we reduced the lactulose to BID and we may use simethicone 80 mg t.i.d. if needed. 6. Chronic cholecystitis and gallbladder dyskinesia, gallbladder sludge and gallstones being managed by Dr. Padilla. He is a poor surgery candidate. The above plan discussed with the patient and the nurse and all questions answered. cc: MD Isaac Bone MD Reginald D. Gladish, MD MTDD
[2017-05-05] MEDS: NEURONTIN PO SCH (20:20)
[2017-05-05] MEDS: FLOMAX PO SCH (20:20)
[2017-05-06] MEDS: XOPENEX NEB INH SCH ×4 (03:25→21:30)
[2017-05-06] MEDS: ATROVENT NEB INH SCH ×4 (03:25→21:30)
[2017-05-06] MEDS: ZOSYN 2.25 GM/NS 2.25 GM/50 ML IVPB IV SCH ×3 (05:02→17:42)
[2017-05-06 05:29] LABS: HEMATOCRIT 38.1 % (42.0-52.0); HEMOGLOBIN 12.5 g/dL (14.0-18.0); MCH 30.1 PG (27-31); MCHC 32.8 g/dL (33-37); MCV 91.8 FL (81-99); MPV 11.7 FL (7.4-10.4); RBC 4.15 XMIL (4.7-6.1)
[2017-05-06 08:03] LABS: INR 1.37; PROTIME 14.7 Seconds (9.2-11.7)
[2017-05-06 08:11] LABS: ALBUMIN 2.5 g/dL (3.5-5.0); CALCIUM 7.6 mg/dL (8.8-10.2); POTASSIUM 3.7 mmol/L (3.5-5.1)
[2017-05-06] MEDS: PHOSLO PO SCH ×3 (08:32→17:33)
[2017-05-06] MEDS: SODIUM BICARBONATE PO SCH ×2 (08:32→20:16)
[2017-05-06] MEDS: RENAGEL PO SCH ×3 (08:32→17:33)
[2017-05-06] MEDS: ASPIRIN EC PO SCH (08:32)
[2017-05-06] MEDS: MIRALAX PO SCH (08:32)
[2017-05-06] MEDS: SYNTHROID PO SCH (08:32)
[2017-05-06] MEDS: ZINC SULFATE PO SCH (08:32)
[2017-05-06] MEDS: PREDNISONE PO SCH (08:32)
[2017-05-06] MEDS: LACTULOSE PO SCH ×2 (08:33→20:16)
[2017-05-06] MEDS: SENSIPAR PO SCH (08:33)
[2017-05-06] MEDS: FOLTX PO SCH (08:33)
[2017-05-06] MEDS: LOPRESSOR PO SCH ×2 (08:45→20:24)
[2017-05-06] MEDS: PROTONIX IV SCH ×2 (08:45→20:16)
[2017-05-06] MEDS: XIFAXAN PO SCH ×2 (08:53→20:15)
--- NOTE | 2017-05-06 15:25 | PROGRESS NOTE ---
DATE: 05/06/2017 SUBJECTIVE: The patient seems to be doing okay. OBJECTIVE: Vital signs: Blood pressure was 106/75, heart rate 119, respiratory rate 17, temperature 97.4 degrees, 99% on 3 L. Cardiovascular: Regular rate and rhythm. Pulmonary: Bilateral breath sounds. Clear to auscultation. GI: Soft, nontender, nondistended. Bowel sounds are positive. LABORATORY DATA: Hemoglobin and hematocrit 12 and 38, white count 4.6, platelets 90,000. INR 1.3. BUN and creatinine are 31 and 7.4. Phosphorus 5.1, albumin 2.5. PROBLEM LIST: 1. Hepatic encephalopathy. Will continue lactulose and rifaximin. 2. Atrial fibrillation. Appears to be rate controlled. Coumadin has been held because of his coagulopathy but he appears to be stable. 3. End-stage renal. He is on HD per Dr. Garcia. 4. Cirrhosis, new onset, possibly cardiac. We will attempt to get some fluid today for analysis and decrease abdominal swelling. 5. Hypertension. Appears to be stable and the levels have stabilized. 6. Disposition. If no major bleeding issues I anticipate he can probably go the floor or step- down tomorrow. cc: Leonel Rosario MD
[2017-05-06] MEDS ORDERED: ALBUMIN 25% IV ONE (16:06)
--- NOTE | 2017-05-06 17:46 | PROGRESS NOTE ---
DATE: 05/04/2017 SUBJECTIVE: The patient is currently in bed resting. Was transferred to the floor from ICU because he had hypotension. OBJECTIVE: Vital signs: Temperature 98, pulse 100, respirations 14. Blood pressure 120/75. O2 saturation 90%. General Appearance: Asthenic, laying in bed at the time of exam. In no distress. HEENT examination: No pallor, no icterus. Neck: Supple. Abdomen: Soft, nontender, not distended. Bowel sounds present and normal. Extremities: No cyanosis or clubbing. Neurological: Alert and oriented. LABORATORY DATA: Hemoglobin and hematocrit normal. White count is normal. INR 1.59, creatinine 9.2. Anti-smooth muscle antibody negative. Hemochromatosis gene was nondetected. Ceruloplasmin is actually low, which ultrasound showed one gallstone and sludge. IMPRESSION: 1. Hepatic encephalopathy and newly diagnosed liver cirrhosis of unclear etiology. 2. Dilated cardiomyopathy. 3. Coagulopathy. 4. End-stage renal disease, on hemodialysis. 5. Possible chronic cholecystitis. Dr. Padilla is following, but he is a poor candidate for surgery at this time. I will continue to follow. We are still not sure exactly what is the reason for cirrhosis. We will consider at one point whether we needs a liver biopsy one he is stable. cc: Abdoulaye Schwab MD
[2017-05-06 17:51] LABS: DIFF NEEDED? YES; WBC BF 392 /cumm
[2017-05-06 17:56] LABS: POLYS 57 %
[2017-05-06 17:57] LABS: MONOS 43 %; TOTAL PROT BODY FLUID 2.8 g/dL
[2017-05-06] MEDS: NEURONTIN PO SCH (20:15)
[2017-05-06] MEDS: FLOMAX PO SCH (20:15)
[2017-05-06] MEDS: SODIUM CHLORIDE 0.9% INJ SCH (20:16)
[2017-05-07] MEDS: ZOSYN 2.25 GM/NS 2.25 GM/50 ML IVPB IV SCH ×4 (00:12→17:01)
[2017-05-07] MEDS: XOPENEX NEB INH SCH ×4 (03:40→21:20)
[2017-05-07] MEDS: ATROVENT NEB INH SCH ×4 (03:40→21:20)
--- NOTE | 2017-05-07 03:43 | PROGRESS NOTE ---
DATE: 05/06/2017 SUBJECTIVE: Patient is resting in bed. He had a paracentesis done by Dr. Rosario. According to the patient, they removed around 1.5 L today. We will await the final dictation report. His fluid studies so far are currently pending. He denies any abdominal pain, nausea, vomiting, or vomiting blood. He denies any blood in the stools. He denies any fevers, rigors, or chills. PHYSICAL EXAMINATION: Vital Signs: Temperature 98.5 degrees, pulse rate of 109 respiratory rate of 12, blood pressure of 100/68, saturating 96% on 3 nasal cannula. Body weight of 153 pounds 14.4 ounces. General Appearance: Moderately built, moderately nourished, lying in bed, in no acute distress. HEENT: Mild pallor. No icterus. Neck: Supple. Abdomen: Soft, nontender, nondistended. Bowel sounds are present. No guarding. Extremities: No cyanosis, clubbing. Neurologic: He is awake and alert. Answers all questions. LABS: Hemoglobin and hematocrit are 12.5 and 38.1, white count of 4.6, platelet count of 90,000, MCV of 91. INR of 1.37, PT of 14.7, PTT of 35.5. Sodium 143, potassium 3.7, chloride 100, bicarb 24, anion gap of 19, BUN of 31, creatinine of 7.4, glucose of 100, calcium 7.6, phosphorus 5.1, albumin of 2.5. Antismooth muscle antibody is negative. IMPRESSION AND PLAN: 1. Cardiac cirrhosis. We will continue a low-sodium diet. Avoid any hepatotoxic drugs and follow up on liver enzymes. 2. Chronic cholecystitis, gallstones, and gallbladder sludge. Being followed by Dr. Padilla. Poor surgical candidate so no surgical intervention per the surgical team. 3. Hepatic encephalopathy. We will continue on lactulose and Xifaxan. 4. Atrial fibrillation with rapid ventricular response, on Coumadin. We need to keep an eye on his blood counts. 5. End-stage renal disease, on hemodialysis per Dr. Garcia. 6. Ascites, status post tap today. We will follow the fluid studies. 7. Hypertension, per the primary team. 8. The above plan of care was discussed with the patient and all questions answered. Please call us with any further questions. cc: MD Leonel Bone MD Reginald D. Gladish, MD MTDD
--- NOTE | 2017-05-07 04:48 | OPERATIVE NOTE ---
PROCEDURE DATE: 05/06/2017 PROCEDURE PERFORMED: Paracentesis. INDICATION: Ascites. DESCRIPTION OF PROCEDURE: Briefly, the patient was prepped. Had no significant issues. We locally sterilized with chlorhexidine, locally anesthetized with 1% lidocaine. Ultrasound had marked the pocket at least 4 cm from the entry site. Catheter was passed without difficulty. Dark tea-colored fluid was removed, with a significant amount of proteinaceous material. There was a lot of foam. About 1.85 L was removed before flow stopped. Catheters removed without difficulty. Specimens sent for analysis. cc: Leonel Rosario MD
[2017-05-07] MEDS ORDERED: TIGHT: 0.2 ML/HR MISC PRN (06:51)
[2017-05-07] MEDS ORDERED: HEPARIN IV PRN (06:51)
[2017-05-07] MEDS ORDERED: NS 2,000 ML MISC PRN (06:51)
[2017-05-07] MEDS: PHOSLO PO SCH ×3 (07:51→17:00)
[2017-05-07] MEDS: RENAGEL PO SCH ×3 (07:51→17:00)
[2017-05-07] MEDS: SODIUM BICARBONATE PO SCH ×2 (08:00→22:23)
[2017-05-07] MEDS: SODIUM CHLORIDE 0.9% INJ SCH ×2 (08:00→22:23)
[2017-05-07] MEDS: LACTULOSE PO SCH ×2 (08:00→22:22)
[2017-05-07] MEDS: PROTONIX IV SCH ×2 (08:00→22:23)
[2017-05-07] MEDS ORDERED: NS 250 ML IV ONE ×2 (08:56→18:37)
[2017-05-07 09:16] LABS: HEMATOCRIT 40.3 % (42.0-52.0); HEMOGLOBIN 13.3 g/dL (14.0-18.0); MCH 29.8 PG (27-31); MCV 90.2 FL (81-99); RBC 4.47 XMIL (4.7-6.1)
[2017-05-07 09:24] LABS: ALBUMIN 3.2 g/dL (3.5-5.0); CALCIUM 7.6 mg/dL (8.8-10.2); DIRECT BILIRUBIN 2.6 mg/dL (0.00-0.20); INR 1.36; POTASSIUM 3.7 mmol/L (3.5-5.1); PROTIME 14.6 Seconds (9.2-11.7); TOTAL BILIRUBIN 3.5 mg/dL (0.20-1.00); TOTAL PROTEIN 5.6 g/dL (6.3-8.3)
[2017-05-07] MEDS: MIRALAX PO SCH (09:30)
[2017-05-07] MEDS: PREDNISONE PO SCH (09:30)
[2017-05-07] MEDS: XIFAXAN PO SCH ×2 (09:30→22:25)
[2017-05-07] MEDS: ASPIRIN EC PO SCH (09:30)
[2017-05-07] MEDS: SENSIPAR PO SCH (09:30)
[2017-05-07] MEDS: SYNTHROID PO SCH (09:30)
[2017-05-07] MEDS: ZINC SULFATE PO SCH (09:34)
--- NOTE | 2017-05-07 09:40 | PROGRESS NOTE ---
DATE: 05/07/2017 SUBJECTIVE: He is more alert today. He states his abdominal pain is resolved and he is ready to eat. No shortness of breath. OBJECTIVE: Vital Signs: Blood pressure 87/56, heart rate 105, respirations 17, afebrile. Intake 2.8 L. Output 1.9 L. Physical Examination: General: No acute distress. Skin: Warm and dry. HEENT: Conjunctivae are pink. Neck: Neck veins are distended. Trachea is midline. Heart: Irregular but not tachycardic. Lungs: Have equal breath sounds without crackles or wheezes. Abdomen: Distended and soft. Bowel sounds are present. No tenderness. Extremities: Have no edema, clubbing, or cyanosis. Laboratory Data: None today. IMPRESSION: 1. End-stage kidney disease. He will have his routine hemodialysis treatment today. 2. Hepatic encephalopathy, improved. 3. Spontaneous bacterial peritonitis. He is on Zosyn. Clinically improved. cc: Adria Garcia MD
[2017-05-07] MEDS: LOPRESSOR PO SCH ×2 (10:06→21:21)
[2017-05-07] MEDS: FOLTX PO SCH (10:06)
--- NOTE | 2017-05-07 10:26 | PROGRESS NOTE ---
DATE: 05/07/2017 SUBJECTIVE: The patient really does not have any major complaints. OBJECTIVE: Blood pressure is 120/70, heart rate is varied 100 to 120s. Saturations 92% on room air.Cardiovascular: Irregularly irregular. Pulmonary: Decreased at the bases. GI: Soft, nontender, nondistended. Bowel sounds are positive. LABORATORY DATA: White count 5, hemoglobin and hematocrit 13 and 40. Platelets of 95,000. Total bilirubin 2.6. BUN and creatinine 36 and 8.3. Platelets at 95,000. PROBLEM LIST: 1. Hepatic encephalopathy. She seems to be improving. Will repeat ammonia level. Continue lactulose and . 2. Atrial fibrillation. We will continue medications, not quite rate controlled today. We may have to add some additional Cardizem, probably can resume Coumadin here in the next day or so. INR has been stable. 3. End-stage renal. Dialysis per renal service. 4. Cirrhosis. We are continuing to monitor. Peritoneal fluid is being analyzed. Is right on the cusp of being consistent with portal hypertension but does appear to be more transudative in nature. It is not consistent with SBP. Cultures are pending at this time. DISPOSITION: Patient is complicated. Very weak. We will continue to monitor because he is a little bit on the hypotensive side and tachycardic. Discussed with discharge planning team that we will evaluate with possible L tach for other disposition issues. cc: Leonel Rosario MD
--- NOTE | 2017-05-07 11:27 | PROGRESS NOTE ---
DATE: 05/07/2017 SUBJECTIVE: Patient is resting in bed. He is feeling better. He is still in atrial fibrillation with rapid ventricular response. His heart rates have been between 100 to 120s. He denies any fevers, rigors, chills. Denies any nausea, vomiting, abdominal pain, or diarrhea. Denies any vomiting blood or passing blood in the stools. PHYSICAL EXAMINATION: Vital Signs: Temperature of 97.6 degrees, pulse rate of 117, respiratory rate 16, blood pressure of 91/72, saturating 98% on room air. Body weight of 135 pounds 4.8 ounces, BMI of 17.4 kg/m2. General Appearance: Thinly built, lying in bed, in no acute distress. HEENT: No pallor. No icterus. Neck: Supple. Abdomen: Soft, nontender, nondistended. Bowel sounds are noted. No guarding or rebound. He had ascitic tap done yesterday. Extremities: No cyanosis, clubbing. He has some bruises in the lower extremities. Neurologic: He is alert, awake, oriented. LABS: Hemoglobin and hematocrit are 13.3 and 40.3, white count of 5.4, platelet count of 95,000, MCV of 90.2. INR 1.3, PT of 14.6. Sodium 142, potassium 3.7, chloride of 101, bicarb 20, anion gap 22, BUN of 36, creatinine of 8.3, glucose of 87, calcium 7.6, phosphorus 5.1. Total bilirubin is 3.5, direct of 2.6. AST 30, ALT 22, alkaline phosphatase 90, total protein 5.6, albumin is 3.2. His ascitic tap showed 392 white cells, 57% polymorphonuclear, and total protein of 2.8, amylase of 16. The peritoneal culture is showing no growth on aerobic and anaerobic cultures. The patient has been on Zosyn since 04/29/2017. IMPRESSION AND PLAN: 1. Cardiac cirrhosis. We will continue on low sodium diet. Avoid any hepatotoxic drugs and continue to follow liver enzymes. He had a paracentesis done which cultures have so far been negative. It does have high white cells but it could be a traumatic tap. Blood culture so far has been negative. He is already protected with IV Zosyn. 2. Chronic cholecystitis, gallstones, gallbladder sludge. A poor surgical candidate. 3. Hepatic encephalopathy. Continue on lactulose and Xifaxan. 4. Atrial ablation with rapid ventricular response, on Coumadin. Being monitored per the cardiology team. 5. Erythrocyte sedimentation rate, on hemodialysis per Dr. Gracia. 6. Hypertension, per the primary team. 7. GI prophylaxis with PPIs. 8. Bowel regimen as above. 9. The above findings were discussed with the patient and the nursing staff. Please call us with any further questions. cc: MD Leonel Bone MD Reginald D. Gladish, MD
[2017-05-07] MEDS: CARDIZEM PO SCH ×2 (12:10→17:34)
[2017-05-07] MEDS ORDERED: NS 2,000 ML ONE (12:36)
[2017-05-07] MEDS ORDERED: HEPARIN ONE (12:37)
[2017-05-07] MEDS: ZOFRAN IV PRN (16:54)
[2017-05-07] MEDS: NEURONTIN PO SCH (22:22)
[2017-05-07] MEDS: FLOMAX PO SCH (22:23)
[2017-05-08] MEDS: ZOSYN 2.25 GM/NS 2.25 GM/50 ML IVPB IV SCH ×2 (00:54→05:21)
[2017-05-08] MEDS: ATROVENT NEB INH SCH ×4 (03:35→22:32)
[2017-05-08] MEDS: XOPENEX NEB INH SCH ×4 (03:35→22:32)
[2017-05-08] MEDS: ZINC SULFATE PO SCH (08:28)
[2017-05-08] MEDS: LACTULOSE PO SCH ×2 (08:29→20:20)
[2017-05-08] MEDS: PREDNISONE PO SCH (08:29)
[2017-05-08] MEDS: ASPIRIN EC PO SCH (08:29)
[2017-05-08] MEDS: SENSIPAR PO SCH (08:29)
[2017-05-08] MEDS: SODIUM BICARBONATE PO SCH ×2 (08:29→20:20)
[2017-05-08] MEDS: SYNTHROID PO SCH (08:29)
[2017-05-08] MEDS: RENAGEL PO SCH ×3 (08:29→16:26)
[2017-05-08] MEDS: FOLTX PO SCH (08:29)
[2017-05-08] MEDS: PHOSLO PO SCH ×3 (08:29→16:26)
[2017-05-08] MEDS: SODIUM CHLORIDE 0.9% INJ SCH ×2 (08:30→20:20)
[2017-05-08] MEDS: PROTONIX IV SCH ×2 (08:30→20:19)
[2017-05-08] MEDS: MIRALAX PO SCH (08:31)
[2017-05-08] MEDS: XIFAXAN PO SCH (08:44)
[2017-05-08] MEDS: CARDIZEM PO SCH ×3 (08:44→16:26)
[2017-05-08 08:57] LABS: ALBUMIN 2.5 g/dL (3.5-5.0); CALCIUM 7.6 mg/dL (8.8-10.2); POTASSIUM 4.2 mmol/L (3.5-5.1)
[2017-05-08 08:59] LABS: INR 1.36; PROTIME 14.6 Seconds (9.2-11.7)
[2017-05-08 09:15] LABS: HEMATOCRIT 39.1 % (42.0-52.0); MCH 29.6 PG (27-31); MCHC 33.2 g/dL (33-37); MCV 89.1 FL (81-99); MPV 12.8 FL (7.4-10.4); RBC 4.39 XMIL (4.7-6.1)
[2017-05-08] MEDS: LOPRESSOR PO SCH ×2 (09:45→20:04)
--- NOTE | 2017-05-08 10:02 | PROGRESS NOTE ---
DATE: 05/08/2017 TIME SEEN: 0750 hours. SUBJECTIVE: Mr. Byrne is resting quietly in bed. His head of the bed is elevated. He is waiting for his breakfast. He denies any chest pain. No increased work of breathing. OBJECTIVE: Temperature 98.7 degrees, blood pressure 80/56, heart rate 90, respirations 16. He is on 3 L nasal cannula. Last recorded saturation 92%. He has had 1426 in; he has had 2457 out per dialysis. LABS: His most recent labs: These are still pending. Previous potassium of 3.7, previous hemoglobin of 8.8. PD fluid is negative. PHYSICAL EXAMINATION: General: This is a 72-year-old white male. He is currently resting in bed. He is in no acute distress. Skin: Warm and dry. HEENT: Normocephalic, atraumatic. Conjunctivae pink. He has MERVIN. Mucous membranes are moist. Neck: Supple. Trachea midline. He has no JVD. Cardiovascular: Irregular rate and rhythm. He is tachycardic on the monitor. Lungs: Clear to auscultation anterior. Equal excursion. Remains on O2. Abdomen: Distended, soft, nontender. Positive bowel sounds. Genitourinary: Not inspected with hemodialysis assist. Extremities: Have no edema. No clubbing or cyanosis. Neurological: Alert and oriented x3 with loss of most recent events. ASSESSMENT AND PLAN: 1. End-stage renal disease. Patient had his dialysis treatment yesterday. He also had a paracentesis with peritoneal dialysis fluid pulled. He is in no fluid volume overload today. We will plan for dialysis per his routine in the morning. 2. Hepatic encephalopathy. This has improved. 3. Spontaneous bacterial peritonitis. Patient does remain on Zosyn, even though the peritoneal dialysis fluid appears negative at this time. 4. Electrolytes and acid-base balance. These have remained stable. I would like to thank you for allowing us to follow with this patient. Seen, data reviewed, discussed with Anthony Hayes on 05/08/17. I agree with the above assessment and plan of care. rg Dictated by MELVA Rios for Adria Garcia MD cc: MELVA Rios MD [facility]
--- NOTE | 2017-05-08 11:37 | PROGRESS NOTE ---
DATE: 05/08/2017 SUBJECTIVE: Today, Mr. Byrne refers to be doing a whole lot better. Knows where he is and very communicative. OBJECTIVE: Vital signs: Blood pressure is 103/70, pulse 108, respirations 15, and temperature is 97.9 degrees. General: Mr. Byrne is a 72-year-old male. He is in bed, in no distress. HEENT: Mucosa pink and moist. Anicteric. Acyanotic. He looks malnourished. Neck: Supple. I did not appreciate any JVD. Chest: Air entry is bilaterally reduced. A few bibasilar crepitations. Cardiovascular: Irregularly irregular heart rate. Abdomen: Soft. Extremities: No pedal edema. Some old changes of stasis dermatitis noted. Central Nervous System: Patient is awake, alert, very conversational, and oriented x4. There is no focal neurological deficit and follows commands. LABORATORY DATA: WBC is 4.71, hemoglobin is 13.4, platelet count of 85,000. Chemistry is reviewed. INR is 1.36. Sodium is 143, potassium is 4.2, chloride 98, bicarbonate is 27, and creatinine is 6.9, which is consistent with end-stage renal disease. Patient's peritoneal fluid analyses were reviewed. ASSESSMENT: 1. Altered mental status, likely due to underlying hepatic encephalopathy. This has improved. Patient is currently on lactulose and rifaximin. 2. Atrial fibrillation with rapid ventricular response on presentation. The patient is currently rate controlled. We will continue with Cardizem. Being followed by Cardiology, as well. 3. Endstage renal disease, on dialysis. 4. Cardiac cirrhosis. Noted that peritoneal fluid analysis which was done yesterday had a serum albumin ascites albumin gradient (SAAG) of less than 1.1, indicative that the ascitic fluid is not due to portal hypertension. Protein in the ascitic fluid was also more than 2.5 , which is consistent with the fact that all this is due to the patient's underlying heart disease. 5. Congestive heart failure. Ejection fraction of 40% to 45% noted. cc: Yoel Ridley MD MTDD
--- NOTE | 2017-05-08 12:04 | PROGRESS NOTE ---
DATE: 05/08/2017 IMPRESSION: Mr. Byrne is feeling better. Nausea appears to have resolved. Denies any chest discomfort or dyspnea. Confusion also appears to have improved. OBJECTIVE: Vital Signs: Blood pressure 91/65, heart rate 106 and irregular with ECG monitor showing atrial fibrillation. There is no significant jugular venous distention. Chest: Clear to auscultation. Cardiac Exam: Reveals an irregular rate and rhythm without appreciable murmur or gallop. IMPRESSION: 1. Chronic atrial fibrillation. 2. Encephalopathy improved. Suspected to be a of hepatic origin related chronic liver disease. 3. End-stage renal disease requiring chronic hemodialysis. RECOMMENDATIONS: 1. Would continue current beta su regimen unchanged. 2. Resume anticoagulation when acceptable from a standpoint of chronic liver disease and noncardiac issues. cc: Gregg Calles MD
[2017-05-08] MEDS: FLOMAX PO SCH (20:20)
[2017-05-08] MEDS: NEURONTIN PO SCH (20:20)
[2017-05-09] MEDS: ATROVENT NEB INH SCH ×4 (03:14→21:12)
[2017-05-09] MEDS: XOPENEX NEB INH SCH ×4 (03:14→21:13)
[2017-05-09 06:22] LABS: INR 1.28; PROTIME 13.6 Seconds (9.2-11.7)
[2017-05-09] MEDS ORDERED: TIGHT: 0.2 ML/HR MISC PRN (06:59)
[2017-05-09] MEDS ORDERED: HEPARIN IV PRN (06:59)
[2017-05-09] MEDS ORDERED: NS 2,000 ML MISC PRN (06:59)
[2017-05-09 07:15] LABS: ALBUMIN 2.7 g/dL (3.5-5.0); CALCIUM 7.8 mg/dL (8.8-10.2); POTASSIUM 4.5 mmol/L (3.5-5.1)
[2017-05-09] MEDS ORDERED: NS 2,000 ML ONE ×2 (08:01→11:00)
[2017-05-09] MEDS: LACTULOSE PO SCH ×2 (08:16→23:53)
[2017-05-09] MEDS: RENAGEL PO SCH ×3 (08:16→17:01)
[2017-05-09] MEDS: ZINC SULFATE PO SCH (08:17)
[2017-05-09] MEDS: ASPIRIN EC PO SCH (08:17)
[2017-05-09] MEDS: CARDIZEM PO SCH ×3 (08:17→17:03)
[2017-05-09] MEDS: LOPRESSOR PO SCH ×3 (08:17→23:54)
[2017-05-09] MEDS: PREDNISONE PO SCH (08:17)
[2017-05-09] MEDS: SODIUM BICARBONATE PO SCH ×2 (08:17→23:53)
[2017-05-09] MEDS: SYNTHROID PO SCH (08:17)
[2017-05-09] MEDS: SENSIPAR PO SCH (08:18)
[2017-05-09] MEDS: PHOSLO PO SCH ×3 (08:18→17:01)
[2017-05-09] MEDS: PROTONIX IV SCH ×2 (08:18→23:54)
[2017-05-09] MEDS: FOLTX PO SCH (08:18)
[2017-05-09] MEDS: MIRALAX PO SCH (08:18)
[2017-05-09] MEDS: SODIUM CHLORIDE 0.9% INJ SCH (08:18)
--- NOTE | 2017-05-09 12:11 | PROGRESS NOTE ---
DATE: 05/09/2017 SUBJECTIVE: Today Mr. Byrne refers to be doing a lot better. Denies any complaints. OBJECTIVE: Vital signs: Blood pressure is 103/79, pulse of 116, respirations 17, temperature is 98.6 degrees. General: Mr. Colbert is a 72-year-old male. He is in bed, not seemingly distressed. HEENT: Mucosa is pink and moist. Anicteric and acyanotic. Neck: Supple. Chest: Air entry is bilaterally reduced. Cardiovascular: Irregularly irregular. Abdomen: Soft. Extremities: No pedal edema. MANAGER COMPETITIVE INTELLIGENCE: Patient is awake alert, no neurological deficit. LABORATORY DATA: Sodium is 143, potassium is 4.5, chloride is 100, bicarb is 20, creatinine is 8.6. ASSESSMENT: 1. Altered mental status on presentation, likely due to underlying hepatic encephalopathy, is completely resolved. The patient continues to be on lactulose and rifaximin. 2. Atrial fibrillation with rapid ventricular response on presentation. The patient is on Cardizem. Rate goes anywhere between 100-123. I think Cardiology has added a beta su to the treatment. 3. Cardiac cirrhosis with ascites. Sac on the ascitic fluid was less than 1.1 indicative that the underline pathophysiology is different from portal hypertension. 4. Congestive heart failure. Ejection fraction of 40-45% noted. 5. Endstage renal disease. Patient on hemodialysis. PLAN: In general I think Mr. Byrne is doing a lot better. We are still awaiting a bed to transfer him from the ICU to regular floor. We already have ordered for the transfer. Hopefully, we can get him to the floor today. We also are pending evaluation for a social work job titles for his disposition. Patient came from [facility]. So we hope to transfer him back to [facility]. He has completely finished his course of antibiotics. So I do not think he would benefit going to an LTAC. cc: Yoel Ridley MD
--- NOTE | 2017-05-09 14:07 | PROGRESS NOTE ---
DATE: 05/09/2017 SUBJECTIVE: He is doing well today. He has no shortness of breath. His appetite is better. OBJECTIVE: Vital Signs: Blood pressure 118/82, heart rate 125, respirations 15, afebrile. Generally: He is a thin, chronically ill-appearing man in no acute distress. Skin: Warm and dry. Conjunctivae are pink. Neck: Neck veins are not distended. Trachea is midline. Heart: Irregular and tachycardic. Lungs: Equal breath sounds. No crackles. Abdomen: Soft, nontender. Bowel sounds present. Extremities: 1+ edema. No clubbing or cyanosis. IMPRESSION: 1. End-stage kidney disease. He will have his routine hemodialysis today using a 2 potassium bath. 2. Electrolytes are acceptable. 3. Acid-base in target. 4. Anemia, stable. 5. Altered mental status. Improved. 6. Spontaneous bacterial peritonitis. Cultures have been negative. Continue antibiotics. cc: Adria Garcia MD
--- NOTE | 2017-05-09 15:58 | PROGRESS NOTE ---
DATE: 05/08/2017 SUBJECTIVE: He is doing better. He is alerted and oriented. OBJECTIVE: Vital Signs: Blood pressure 103/70, pulse of 100, respirations 15, temp of 97.9 degrees. General: Lying in bed, not in acute distress. HEENT: No scleral icterus or conjunctival pallor. Neck: Supple. Lungs: Clear. Heart: Irregular irregular heart rate. Abdomen: Soft. No organomegaly. No ascites. Bowel sounds present and normal. Extremities: Unremarkable. MANAGER NEWS: Alert and oriented. No focal neurological deficit. LABORATORY DATA: White count normal, hemoglobin 13.4. INR 1.36. Creatinine 6.9, which is his baseline. He is on peritoneal fluid. Analysis was reviewed. ASSESSMENT: 1. Altered mental status secondary to underlying hepatic encephalopathy has improved substantially back to functional state on lactulose and rifampin. 2. Atrial fibrillation with RVR which is controlled by Cardiology. 3. End-stage renal disease on dialysis. 4. Cardiac 5. Congestive heart failure. The patient seems to be doing better. There is no infection in peritoneal fluid. Protein level is 2.5 which is a little high but again in the absence of any infection we will just watch it. cc: Abdoulaye Schwab MD
[2017-05-09] MEDS: NEURONTIN PO SCH (23:53)
[2017-05-09] MEDS: FLOMAX PO SCH (23:54)
[2017-05-10] MEDS: ATROVENT NEB INH SCH ×5 (03:42→21:14)
[2017-05-10] MEDS: XOPENEX NEB INH SCH ×5 (03:42→21:14)
[2017-05-10 07:09] LABS: INR 1.26; PROTIME 13.4 Seconds (9.2-11.7)
[2017-05-10 07:28] LABS: ALBUMIN 2.6 g/dL (3.5-5.0); CALCIUM 7.7 mg/dL (8.8-10.2); POTASSIUM 3.7 mmol/L (3.5-5.1)
[2017-05-10] MEDS: SODIUM BICARBONATE PO SCH ×2 (08:56→22:59)
[2017-05-10] MEDS: ZINC SULFATE PO SCH (08:57)
[2017-05-10] MEDS: LOPRESSOR PO SCH ×2 (08:57→22:59)
[2017-05-10] MEDS: CARDIZEM PO SCH ×3 (08:57→16:38)
[2017-05-10] MEDS: SENSIPAR PO SCH (08:57)
[2017-05-10] MEDS: RENAGEL PO SCH ×3 (08:57→16:38)
[2017-05-10] MEDS: ASPIRIN EC PO SCH (08:57)
[2017-05-10] MEDS: PHOSLO PO SCH ×3 (08:57→16:38)
[2017-05-10] MEDS: SYNTHROID PO SCH (08:57)
[2017-05-10] MEDS: PREDNISONE PO SCH (08:58)
[2017-05-10] MEDS: MIRALAX PO SCH (08:59)
[2017-05-10] MEDS: LACTULOSE PO SCH ×2 (08:59→22:58)
[2017-05-10] MEDS: PROTONIX IV SCH ×2 (09:00→23:04)
[2017-05-10] MEDS: SODIUM CHLORIDE 0.9% INJ SCH (09:00)
[2017-05-10] MEDS: FOLTX PO SCH (09:05)
--- NOTE | 2017-05-10 10:53 | PROGRESS NOTE ---
DATE: 05/10/2017 DATE SEEN: 05/10/2017 TIME SEEN: 07:50 SUBJECTIVE: Mr. Byrne is sitting up in bed. He is eating his breakfast. He denies any chest pain or increased work of breathing. States he continues to feel weak. OBJECTIVE: Vital Signs: Most recent vital signs are temperature 97.7 degrees, blood pressure 134/82, heart rate 99, respirations 20. He is on room air. He has had 470 in, he has had 600 off on dialysis yesterday to his dry weight. LABS: Sodium 140, potassium 3.7, chloride 98, CO2 27, BUN 25, creatinine 5.8, glucose 57. His anion gap is 15, calcium 7.7, phosphorus 3.1, albumin 2.6. Patient's last hemoglobin is 13 on the . PHYSICAL EXAMINATION: General Appearance: This is a 72-year-old white male. He is currently resting in bed. He appears chronically ill, though he is in no acute distress. Skin: Warm and dry. HEENT: Normocephalic, atraumatic. Conjunctiva is pink. He has MERVIN. Mucous membranes moist. Neck: Supple. Trachea midline. No JVD. Cardiovascular: He has an irregular rate and rhythm. He remains slightly tachycardic. He has a soft murmur. No gallop. Lungs: Clear to auscultation anteriorly. Equal excursion. He is on room air. Abdomen: Soft, nontender. Positive bowel sounds. Extremities: 1+ edema with a fistula to the left upper arm. No clubbing or cyanosis is noted to the lower extremities. Neurological: Alert and oriented x3. ASSESSMENT AND PLAN: 1. End-stage renal disease. Patient is due for his routine dialysis treatment in the a.m. Otherwise, he is to go to his outpatient dialysis treatment if discharged. 2. Electrolytes and acid-base balance. These are acceptable. 3. Anemia. This is stable. 4. Altered mental status. This has improved. 5. Bacterial peritonitis. He continues on renal dosed antibiotics and is followed by the primary care team. I would to thank you for allowing us to follow with this patient. Seen, data reviewed, discussed with Anthony Hayes on 05/10/17. I agree with the above assessment and plan of care. rg Dictated by MELVA Rios for Adria Garcia MD cc: MELVA Rios MD [facility]
[2017-05-10] MEDS ORDERED: AYR NASAL SPRAY NAS PRN (11:33)
--- NOTE | 2017-05-10 17:07 | PROGRESS NOTE ---
DATE: 05/10/2017 SUBJECTIVE: Patient appears awake and very responsive. He is eating his evening meal with enthusiasm. Denies any chest discomfort or dyspnea. He relates he is starting to feel stronger. OBJECTIVE: Vital Signs: Blood pressure 91/70, heart rate 102 and irregular with ECG monitor showing atrial fibrillation. There is no significant jugular venous distention. Chest: Clear to auscultation. Cardiac Exam: Reveals an irregular rate and rhythm without appreciable murmur or gallop. There is no evidence of peripheral edema. IMPRESSION: 1. Recent encephalopathy. Improved. 2. Chronic atrial fibrillation. Rate reasonably controlled. 3. End-stage renal disease requiring chronic hemodialysis. 4. Hypertension. RECOMMENDATIONS: 1. Continue current cardiovascular regimen with beta-su and low-dose Cardizem unchanged. 2. Resume anticoagulation when acceptable from a standpoint of his noncardiac issues. 3. Manage atrial fibrillation long-term with rate control and anticoagulation. 4. We will see further on an as needed basis. cc: Gregg Calles MD
--- NOTE | 2017-05-10 17:43 | PROGRESS NOTE ---
DATE: 05/10/2017 SUBJECTIVE: Today Mr. Byrne referred to be doing fine. Had some mild bleeding from his nostril but otherwise completely asymptomatic. OBJECTIVE: General: Mr. Byrne is a 72-year-old male. He is in bed, not seemingly distressed. HEENT: Mucous is pink and moist. Anicteric. Acyanotic. Neck: Supple. Chest: Good air entry. No crepitations. No rhonchi. Cardiovascular: Irregularly irregular but no murmurs. Abdomen: Soft. Extremities: No pedal edema. LABORATORY DATA: Has been reviewed. Consistent with endstage renal disease. ASSESSMENT: 1. Altered mental status on presentation due to metabolic encephalopathy (hepatic encephalopathy), resolved. 2. Atrial fibrillation with rapid ventricular response. Rate is controlled. 3. Cardiac cirrhosis with ascites. Patient's PMN is less than 250 and his SAAG is also less than 1.1. 4. Congestive heart failure. Ejection fraction of 40 to 45%. 5. End-stage renal disease. Patient is on dialysis. 6. Mild nasal bleed, likely from oxygen irritation of the nostril. PLAN: So in general, Ms. Byrne is relatively stable and I think he is ready to be discharged. I discussed the case with the drafter topographical and it is okay from their standpoint for him to be discharged. However, Mr. Colbert, to my understanding, has only 5 days left in rehab which I think he is going to be needing more than that. I am waiting for the to come so we can discuss his disposition. I think eventually what will end up is that he will be going home with home health but we will have to discuss that with the family. cc: Yoel Ridley MD
[2017-05-10] MEDS: NEURONTIN PO SCH (22:59)
[2017-05-10] MEDS: FLOMAX PO SCH (22:59)
[2017-05-10] MEDS: KEFLEX PO SCH (22:59)
[2017-05-11] MEDS: ATROVENT NEB INH SCH ×3 (03:35→15:35)
[2017-05-11] MEDS: XOPENEX NEB INH SCH ×3 (03:35→15:35)
[2017-05-11] MEDS ORDERED: TIGHT: 0.2 ML/HR MISC PRN (06:51)
[2017-05-11] MEDS ORDERED: NS 2,000 ML MISC PRN (06:51)
[2017-05-11] MEDS ORDERED: HEPARIN IV PRN (06:51)
[2017-05-11 07:48] LABS: ALBUMIN 2.2 g/dL (3.5-5.0); CALCIUM 7.3 mg/dL (8.8-10.2); POTASSIUM 4.6 mmol/L (3.5-5.1)
[2017-05-11] MEDS: LOPRESSOR PO SCH (08:59)
[2017-05-11] MEDS: PHOSLO PO SCH ×3 (08:59→17:13)
[2017-05-11] MEDS: SODIUM BICARBONATE PO SCH (08:59)
[2017-05-11] MEDS: LACTULOSE PO SCH (08:59)
[2017-05-11] MEDS: RENAGEL PO SCH ×3 (08:59→17:13)
[2017-05-11] MEDS: ZINC SULFATE PO SCH (08:59)
[2017-05-11] MEDS: CARDIZEM PO SCH (08:59)
[2017-05-11] MEDS: PREDNISONE PO SCH (08:59)
[2017-05-11] MEDS: ASPIRIN EC PO SCH (08:59)
[2017-05-11] MEDS: SYNTHROID PO SCH (08:59)
[2017-05-11] MEDS: SENSIPAR PO SCH (08:59)
[2017-05-11] MEDS: KEFLEX PO SCH (08:59)
[2017-05-11] MEDS ORDERED: LEVAQUIN PO SCH (09:00)
[2017-05-11] MEDS: MIRALAX PO SCH (09:04)
--- NOTE | 2017-05-11 09:56 | PROGRESS NOTE ---
DATE: 05/10/2017 SUBJECTIVE: Patient resting in bed. He is feeling better. He denies any fevers, rigors, chills. Denies any nausea or vomiting. Denies any vomiting blood. Denies history of any blood in his stools. He is moving his bowels using lactulose. OBJECTIVE: Vital Signs: Temperature 97.9, pulse of 94, respiratory rate 18, blood pressure 109/72, saturating 98% on room air. General Appearance: Thinly built, lying in bed, in no acute distress. HEENT: No pallor. No icterus. Neck is supple. Abdomen is soft, nontender, nondistended. Bowel sounds are present. Extremities: No cyanosis, clubbing, edema. Neurologic: He is alert, awake, and oriented. LABORATORY DATA: His hemoglobin and hematocrit is 13 and 39.1, white count 4.7 , INR 1.26. Sodium 140, potassium 3.7, chloride 98, bicarb 29. Anion gap of 15. BUN of 25, creatinine 5.8, glucose of 57/ calcium 7.7. Last bilirubin was checked on 05/07/2017 which was 3.5 and direct of 2.6. His albumin is 2.6. His AST on 05/07/2017 was 30. ALT 22. Alkaline phosphatase 98. His ascitic fluid studies showed 392 white cells, 57% polymorphonuclear cells. His culture from the ascitic fluid showed no growth. IMPRESSION AND PLAN: 1. Cardiac cirrhosis with hepatic encephalopathy and questionable spontaneous bacterial peritonitis. In this regard, we will continue to follow his liver enzymes and bilirubin. He will have to have liver enzymes checked every 3-6 months and ultrasound done every 6 months. 2. Hepatic encephalopathy. We will continue on Xifaxan 550 mg p.o. b.i.d. and lactulose 30 mL p.o. b.i.d. and hold for more than 3 bowel movements in 24 hours. 3. Spontaneous bacterial peritonitis. In this regard, we will start him on Keflex 500 mg BID for a total of 10 days.(allergic to ciprofloxacin) 4. Constipation. He will continue MiraLAX once daily. 5. Gastrointestinal prophylaxis. We will continue with Protonix. 6. End-stage renal disease. He is on hemodialysis with Dr. Garcia. 7. Atrial fibrillation with rapid ventricular response, on Coumadin per cardiology team. 8. Congestive heart failure. Dilated cardiomyopathy. Ejection fraction of 20%- 25% per cardiology. Further recommendations to follow pending hospitalist course. cc: MD Adria Ferguson MD William D. Denney, MD Manish Arora, MD MTDD
--- NOTE | 2017-05-11 10:24 | PROGRESS NOTE ---
DATE: 05/11/2017 SUBJECTIVE: He ate well this morning. He has been out of bed, but he is easily fatigued just with sitting on the side of the bed. OBJECTIVE: Vital Signs: Blood pressure 106/69, heart rate 106, respirations 16, afebrile. General: He is a chronically ill-appearing man in no acute distress. Skin: Warm and dry. Eyes: Conjunctivae are pink. Neck: Neck veins are not visible in the erect position. Heart: Regular. Lungs: Have decreased breath sounds in the left base. Abdomen: Soft, nontender. Bowel sounds present. Extremities: Have trace edema. No clubbing or cyanosis. LABORATORY DATA: Sodium 136, potassium 4.6, chloride 97, bicarbonate 16. BUN 39, creatinine 6.3. Albumin is 2.1. Hemoglobin 13.0. IMPRESSION: 1. End-stage kidney disease. He will have his routine hemodialysis treatment today using a 2 potassium bath. Goal of 2-3 L as blood pressure allows. 2. Encephalopathy, improved. Will need extended rehabilitation. 3. Acid base below target, but will be addressed with treatment. cc: Adria Garcia MD
[2017-05-11] MEDS: FOLTX PO SCH (10:25)
[2017-05-11] MEDS ORDERED: HEPARIN ONE (12:22)
[2017-05-11] MEDS ORDERED: NS 2,000 ML ONE (12:22)
[2017-05-11 13:01] VITALS: BP 132/87
[2017-05-11] MEDS: PROTONIX IV SCH (16:36)
[2017-05-11] MEDS ORDERED: ELIQUIS PO SCH (21:00)
[2017-05-12] MEDS ORDERED: CARDIZEM CD PO SCH (09:00)
--- NOTE | 2017-05-12 15:14 | DISCHARGE SUMMARY ---
ADMISSION DATE: 04/27/2017 DISCHARGE DATE: 05/11/2017 DISPOSITION: Home with home health. FOLLOWUP: 1. Dr. Garcia. 2. Dr. Calles. 3. Dr. Schwab. ADMISSION DIAGNOSES: 1. Hepatic encephalopathy. 2. Atrial fibrillation with rapid ventricular response. 3. End stage renal disease. 4. Crohn's disease with short-gut syndrome. 5. Severe protein calorie malnutrition. 6. Systolic heart failure. 7. Vitamin D deficiency. DISCHARGE DIAGNOSES: 1. Altered mental status on presentation due to metabolic encephalopathy (hepatic encephalopathy resolved). 2. Atrial fibrillation with RVR improved. 3. Cardiac cirrhosis with ascites. 4. Questionable SBP. 5. Congestive heart failure. Ejection fraction of 40-45%. 6. End stage renal disease on hemodialysis. 7. History of Crohn's disease with short gut syndrome. 8. Severe protein calorie malnutrition. 9. Vitamin D deficiency and hyperparathyroidism. DISCHARGE MEDICATIONS: 1. Sodium bicarb 1300 b.i.d. 2. Tamsulosin 0.4 p.o. at bedtime. 3. Gabapentin 200 p.o. at bedtime. 4. Sevelamer 800 three times per day. 5. Aspirin 81 mg daily. 6. Metoprolol 50 b.i.d. 7. PhosLo 667, 3 times per day. 8. Ergocalciferol. 9. Sensipar 300 daily. 10. Levothyroxine 50 mcg daily. 11. Lactulose 30 mL p.o. b.i.d. 12. Apixaban 2.5 b.i.d. 13. Diltiazem 120 p.o. daily. 14. Keflex 500 p.o. b.i.d. INVASIVE PROCEDURE DONE DURING THIS ADMISSION: Paracentesis was done by Dr. Rosario on 05/08/2017. 1.85 L was removed. PRESENTING COMPLAINT: Altered mental status. HISTORY OF PRESENTING COMPLAINT: Mr. Byrne is a 72-year-old male with end-stage renal disease, congestive heart failure who comes in and out of the hospital. Patient was actually on the swing bed program in [facility]. Developed altered mentation, was brought in. Was found to have a severe ascites and was in atrial fibrillation RVR. Patient was admitted for further medical care. HOSPITAL COURSE: The patient was admitted. Initially Cardiology was consulted and his rate was controlled. Altered mental status also got improved with the management of the underlying hepatic encephalopathy with lactulose and rifaximin. The patient also was able to participate in physical rehabilitation and was also evaluated during the hospital course by Nephrology. I personally spoke with Dr. Garcia about the case and he did mention that the patient is a hard one and will need some form of structured and monitored physical rehabilitation to prevent him from coming back so often. private household worker was consulted and home health agency was setup because patient had only 5 days left out of the Medicare approval days for rehab. He would therefore be going home with home health. Today I called the and spoke personally with her and outlined the plan. I also inquired if they would need any medical supplies and she did mention that they already have a cane and also a front wheel walker and they will need at bedside commode which the social work instructor has already made arrangements for. The patient will therefore be discharged home in stable condition. He will follow up with all the subspecialties that have been involved in his care. Time spent for discharge was 37 minutes. cc: Yoel Ridley MD
== END 2017-05-11 18:24 | disposition home health service (06) ==
LOC: DIRADM 11:25 → SUATTDRO 11:25 → 3S 13:17 → ICU 05-04 15:15 → 3N 05-09 18:54
PROVIDERS: ATTEND Internal Medicine